=== PATIENT | male | born 1980 | race Caucasian/White ===

== ENCOUNTER 2025-01-03 15:26 | Inpatient (IN) | payer BC, SELFPAY ==
[2025-01-03] VITALS (44 sets, daily range): BP systolic 73–108; BP diastolic 49–86; BMI 20.7; BMI 20.6
--- NOTE | 2025-01-03 14:12 | ED.GENMED ---
History of Present Illness
General
Chief Complaint: Breathing Problem
Source: patient and spouse
Exam Limitations: none
Time Seen by Provider: 01/03/25 14:02
Nursing documentation reviewed up to this point in time: agreed with
History of Present Illness
History of Present Illness:
Patient presents to ED from home secondary to increased work of breathing, associated with productive cough and decreased appetite, along with body ache, chills, and fever over the past 4 days. Patient's child at home experienced similar symptoms
recently, but has recovered fully. Denies recent travel. Denies vomiting or diarrhea. Denies chest pain. Denies sore throat. Patient otherwise is healthy without any medical history. Patient does not take any medications daily.
Review of Systems
Review of Systems
Allergies reviewed?: Yes
All Other Systems: ROS reviewed and negative except as documented in HPI and ROS
Constitutional: Reports fever and chills
EENT: Reports no symptoms
Respiratory: Reports cough and trouble breathing
Cardiac: Reports no symptoms
ABD/GI: Reports no symptoms; Denies vomiting or diarrhea
Musculoskeletal: Reports muscle pain
Skin: Reports no symptoms
Neurological: Reports no symptoms; Denies headache or weakness
Phy Exam
Physical Exam
Physical Exam:
Physical Exam
General: moderate distress, acutely ill. afebrile. ill appearing
Head: nc/at. eomi
Neck: supple. no meningeal signs.
Heart: s1/s2 regular rate and rhythm, no murmur.
Lungs: moderate respiratory distress. rhonchi bilaterally
Abdomen: normal bowel sounds. not tender.
Neuro: alert and oriented x 3. no focal neurological deficits
Skin: no rash
Psychiatric: well kept. interactive and cooperative
Extremities: no edema. no calf tenderness.
Sepsis
Sepsis Screening
Sepsis Assessment: Severe Sepsis
Sepsis Screening: Lactate >/=4mmol/L and Hypotension
Sepsis Screen
Sepsis Screen: Severe Sepsis
Date: 01/03/25
Time: 23:56
Course
Orders/Labs/Results
Orders:
Orders
01/03/25 14:01
Electrocardiogram (*1) Urgent
Reason for Study: Chest Pain
Cardiac Monitoring- Treatment ONCE
EKG- Treatment ONCE
IV Insert/Care/Rem.- Treatment PRN
O2 Therapy [RESP] Urgent
Titrate/Wean O2 to maintain O2 sat greater than (%): 90
Special Instructions: Maintain sats >/=90%
Pulse Ox/spot Check [RESP] Urgent
Quantity: 1
Special Instructions: ON ROOM AIR
01/03/25 14:04
COVID-19 Antigen Urgent
Source: Nasal Swab
Complete Blood Count/With Diff Urgent
Comprehensive Metabolic Panel Urgent
Magnesium Urgent
Comment: ADDON
PTT Urgent
Comment: ADDON
Phosphorus Urgent
Comment: ADDON
Prothrombin Time Urgent
Troponin I Urgent
Influenza A+B Rapid Molecular Urgent
EVE Source: Nasal Swab
Specimen Description:
01/03/25 14:11
CR Chest Portable - 1 View Urgent
Comment:
Reason For Exam: cough/sob/hypoxia
Reason Study Needs to be Portable: Patient Unstable
01/03/25 14:24
Lactic Acid Q4H
Comment: CANCEL 2nd LACTIC ACID IF 1st LACTIC ACID IS LESS THAN 2
Blood Culture Q30M
EVE Source: Blood/Venous
Specimen Description:
Blood Culture Q30M
EVE Source: Blood/Venous
Specimen Description:
01/03/25 14:28
Legionella Urinary Antigen Urgent
EVE Source: Urine
Specimen Description:
Azithromycin 500 mg/250 ml [Zithromax Infusion] 500 mg in 250 ml IV NOW
CefTRIAXone [Rocephin] 1,000 mg IV NOW STA
01/03/25 14:39
0.9% Sodium Chloride 1000 ml [Nss] 1,000 ml IV BOLUS
Albuterol Nebs [Ventolin Nebules] 2.5 mg INH R NOW STA
Oseltamivir Phosphate [Tamiflu] 75 mg PO NOW STA
01/03/25 14:42
Ibuprofen [Motrin] 400 mg PO NOW STA
01/03/25 15:03
0.9% Sodium Chloride 1000 ml [Nss] 1,000 ml IV BOLUS
01/03/25 15:05
Admit/Transfer Patient As Directed
Co-Sign Provider:
Level of Care: Inpatient admission
Assign to:: ICU
Physician / Group: [email or web address]
Diagnosis: Viral Influenza A, sepsis , Bicytopenia , hypotension
Reason for Hospitalization: Viral Influenza A, sepsis , Bicytopenia , hypotension
Expected length of stay greater than two midnights?: Yes
ELOS- Estimated Length of Stay in days: 3
I certify the patient meets the requirements for IP care: Yes
01/03/25 15:09
Code Status As Directed
Resuscitation Status: Full Code
01/03/25 15:30
NORepinephrine 4 MG/250 ML [Levophed] 4 mg in 250 ml IV PER PROTOCOL
Initial dose in mcg/min, then titrate:: 5
Titrate to keep:: MAP > 65 mmHg
Titrate by mcg/min:: 1-2 mcg/min
Frequency of titrations (minutes):: 5
Maximum dose in ICU in mcg/min:: 30
Maximum dose in IMU in mcg/min:: 8
Maximum dose in IVU in mcg/min:: 4
Begin to taper infusion when:: Remained at goal for 4hrs
Taper by mcg/min:: 1-2 mcg/min
Frequency of taper (minutes) if patient maintains goal:: 30
Taper to off?: Yes
If infusion off & no longer maintaining goal:: Contact Provider
01/03/25 16:50
Lactated Ringers [Lr] 1,000 ml IV 150 mls/hr
01/03/25 16:50
Aeronautical Drafter Consult Routine
Consulting Provider: Floyd York
Was physician already notified: Yes
Reason for consult: Viral influenza, sepsis with hypotention, acuyte hypoxic RF
Urinalysis Reflex To Culture Urgent
Activity As Directed
Activity Level: With Assistance
Intake/ Output As Directed
Frequency: Per unit guidelines
Vital Signs As Directed
Frequency: Per unit guidelines
Weight As Directed
Frequency: Daily
Pulse Ox/spot Check [RESP] Routine
Quantity: 1
Special Instructions: pulse oximetry on admision then every shift if on oxygen
call if oxygen saturation < ___ %
DX Deep Vein Thrombosis Video Routine
01/03/25 18:13
Lactic Acid Q4H
Comment: CANCEL 2nd LACTIC ACID IF 1st LACTIC ACID IS LESS THAN 2
01/03/25 20:00
Heparin 5,000 units SC Q12
01/03/25 22:14
Lactic Acid Q4H
Comment: repeat q4 hours x 4 or until less than 2 mmol/L
01/04/25 00:50
Lactic Acid Q4H
Comment: repeat q4 hours x 4 or until less than 2 mmol/L
01/04/25 04:50
Lactic Acid Q4H
Comment: repeat q4 hours x 4 or until less than 2 mmol/L
01/04/25 Breakfast
Regular
At Your Request: Full Participation
Does patient need a safe tray?: No
Complete Blood Count/With Diff IN AM
Comprehensive Metabolic Panel IN AM
01/04/25 08:00
Azithromycin [Zithromax] 500 mg PO DAILY
Oseltamivir Phosphate [Tamiflu] 30 mg PO BID
Pantoprazole [Protonix] 20 mg PO DAILY
01/04/25 14:00
CefTRIAXone [Rocephin] 1,000 mg IV Q24H
Abnormal Lab Results
01/03/25 01/03/25
14:04 14:24
WBC 1.0 L* 10^3/uL
(4.8-10.8)
RBC 4.65 L 10^6/uL
(4.70-6.10)
Plt Count 104 L 10^3/uL
(130-400)
MPV 11.6 H fL
(7.4-10.4)
Absolute Neuts (auto) 0.7 L* 10^3/uL
(1.4-6.5)
Absolute Lymphs (auto) 0.2 L 10^3/uL
(1.2-3.4)
Immature Gran % 2.0 H %
(0-0.5)
PT 15.8 H Sec
(11.4-14.6)
APTT 47.0 H Sec
(23.4-35.0)
Chloride 95 L mmol/L
(98-107)
BUN 30 H mg/dl
(9-20)
Creatinine 2.3 H mg/dL
(0.7-1.3)
Glucose 126 H mg/dl
(70-99)
Lactic Acid 6.1 H* mmol/L
(0.7-2.0)
Calcium 8.1 L mg/dl
(8.4-10.2)
Phosphorus 4.8 H mg/dl
(2.5-4.5)
Total Protein 5.8 L g/dl
(6.3-8.2)
01/03/25 14:04
01/03/25 14:04
Vital Signs
Initial and Last Documented VS:
Initial Vital Signs
Pulse Resp BP Pulse Ox
117 20 79/52 82
01/03/25 13:55 01/03/25 13:55 01/03/25 13:55 01/03/25 13:55
Last Documented Vital Signs
Temp Pulse Resp BP Pulse Ox
97.7 F 87 21 84/66 95
01/03/25 20:00 01/03/25 23:00 01/03/25 23:00 01/03/25 23:00 01/03/25 23:49
MDM/Problems Addressed
MDM/Problems Addressed:
History and exam concerning for significant hypoxia with hypotension, likely secondary to influenza. However, chest x-ray is consistent with bilateral infiltrate, difficult to exclude potential superimposed bacterial infection. Given patient's
clinical presentation, patient will be started on IV fluid boluses, along with IV antibiotics, as well as Tamiflu. Patient's hypoxia improving on mid flow oxygen. Patient will be admitted to ICU for further evaluation and treatment.
Despite initial improvement, patient becoming hypotensive despite 2 L IV fluid bolus. As such, patient will be started on Levophed infusion.
Critical care statement: A total of 60 minutes of critical care time was provided for this patient. This includes management of unstable vital signs, evaluation of the patient at bedside, reviewing the patient's pertinent medical records, review of
old EKGs and review of pertinent medical records. This time with separate from time utilized to perform the aforementioned documented procedures
*EKG
Interpreted by ED Provider?: Yes
EKG Intrepretation Date: 01/03/25
Heart Rate: 108
Rate: tachycardiac
Rhythm: sinus
Interval: normal interval
QRS Pattern: left bundle branch block
*Critical Care Note
Total Time (30-74mins, 75-104mins- exclusive of procedures): 60 min
ED Attending Note
-
Portions of this chart may have been created with voice recognition software.� Occasional wrong word or��sound alike� substitutions may have occurred due to the inherent limitations of voice recognition software.
Discharge Plan
Departure
Patient Disposition: Admit
Date of Disposition: 01/03/25
Time of Disposition: 14:42
Admit to: ICU
Presentation/result/management discussed w/ accepting MD/DO: Hospitalist
Discharge Problem:
Influenza A, Hypoxia, Sepsis, Acute renal failure
Interventions
Interventions:
*Risk Screen - Suicide Last Done: 01/03/25 17:14
*General Assessment Last Done: 01/03/25 14:12
*Neglect/Abuse Screening Last Done: 01/03/25 13:55
ED- Fall Risk Assessment Last Done: 01/03/25 14:10
*ED COVID-19 Vaccine History Last Done: 01/03/25 14:01
*Nursing Disposition Last Done: 01/03/25 17:06
ED- Cardiac Assessment Last Done: 01/03/25 14:10
ED- Pulmonary Assessment Last Done: 01/03/25 14:13
Discharge Date and Time
Discharge Date/Time: 01/03/25 17:07
[2025-01-03] MEDS: NSS 1000 IV ×2 (14:15→14:55)
[2025-01-03 14:25] LABS: INR 1.23; PT 15.8 Sec (11.4-14.6)
[2025-01-03 14:27] LABS: Hematocrit 41.5 % (39.0-52.0); Hemoglobin 14.2 g/dL (13.0-18.0); Mean Corp Hgb Conc. 34.2 g/dL (33.0-37.0); Mean Corpuscular Hgb 30.5 pg (27.0-31.0); Mean Corpuscular Volume 89.2 fL (80.0-94.0); Mean Platelet Volume 11.6 fL (7.4-10.4); Platelet Count 104 10^3/uL (130-400); Red Blood Cell Count 4.65 10^6/uL (4.70-6.10); Red Cell Dist. Width 12.1 % (11.5-14.5)
[2025-01-03 14:30] LABS: Albumin 4.1 g/dl (3.5-5.0); Alkaline Phosphatase 61 U/L (38-126); Blood Urea Nitrogen 30 mg/dl (9-20); Calcium 8.1 mg/dl (8.4-10.2); Carbon Dioxide 25 mmol/L (22-30); Chloride 95 mmol/L (98-107); Estimated Creatinine Clearance 35 ml/min; Glucose 126 mg/dl (70-99); Potassium 4.1 mmol/L (3.5-5.1); Sodium 138 mmol/L (135-145); Total Bilirubin 1.2 mg/dl (0.2-1.3); Total Protein 5.8 g/dl (6.3-8.2); eGFR 35.25
[2025-01-03] MEDS: ROCEPHIN 1000 MG IV (14:32)
[2025-01-03] MEDS: ZITHROMAX INFUSION 250 IV (14:37)
[2025-01-03 14:41] LABS: ALT (SGPT) 42 U/L (0-50); AST (SGOT) 50 U/L (17-59)
[2025-01-03 14:42] LABS: Troponin I < 0.012 ng/ml
[2025-01-03 14:49] LABS: COVID-19 Antigen Negative (Negative)
[2025-01-03 14:51] LABS: Lactic Acid 6.1 mmol/L (0.7-2.0)
[2025-01-03] MEDS: TAMIFLU 75 MG PO (14:51)
[2025-01-03] MEDS: MOTRIN 400 MG PO (14:51)
[2025-01-03] MEDS: VENTOLIN NEBULES 2.5 MG INH (14:55)
--- NOTE | 2025-01-03 14:55 | HPS.HSE ---
Family Physician
-
Family Physician:
Chief Complaint
-
acute Resp distress
History of Present Illness
HPI
44M Healthy with no significant PMHX from home seen at ER:
- evaluation for labored breathing
- associated with productive cough
- decreased appetite, along with body ache, chills, and fever over the past 4 days.
- HX contact exposure: Patient's child at home experienced similar symptoms recently, but has recovered fully.
- Patient does not take any medications daily.
ROS
- Denies recent travel.
- Denies vomiting or diarrhea.
- Denies chest pain.
- Denies sore throat.
Medical History
Past Medical History
Past Medical History: Reports None
Past Surgical History: Reports None
Social History
Tobacco: Non-smoker
Alcohol: None
Drug: None
Personal:
Living: With Family
Family History
Family History: Not pertinent
Allergies / Home Medications
Allergies reflects when Allergies were last updated in [facility].
Home Medications with original date entered in [facility]
Allergy/Medication List:
Allergies
Allergy/AdvReac Type Severity Reaction Status Date / Time
No Known Allergies Allergy Unverified 01/03/25 14:01
Home Medications
escitalopram oxalate 20 mg tablet (Lexapro) 20 mg PO HS 01/03/25
ibuprofen 200 mg tablet 200 mg PO Q6HPRN PRN mild pain/headache/fever 01/03/25
lansoprazole 15 mg capsule,delayed release 15 mg PO DAILY 01/03/25
Review of Systems
-
Constitutional: Reports No Symptoms
EENT: Reports No Symptoms
Respiratory: Reports See HPI
Cardiac: Reports No Symptoms
Abdomen/GI: Reports No Symptoms
: Reports No Symptoms
Musculoskeletal: Reports No Symptoms
Skin: Reports No Symptoms
Neurological: Reports No Symptoms
Endocrine: Reports No Symptoms
Hematologic/Lymphatic: Reports No Symptoms
Psych: Reports No Symptoms
Physical Exam
Vital Signs
Vital Signs
Temp Pulse Resp BP Pulse Ox
96.7 F L 112 17 75/49 88
01/03/25 14:16 01/03/25 14:03 01/03/25 14:03 01/03/25 14:03 01/03/25 14:03
Physical Exam
General: Conversant, Respiratory Distress, Appears in Distress and Other (toxic)
HEENT: Anicteric; No Moist mucous membranes
Respiratory: Wheezes
Cardiac: S1/S2 and Tachycardia
GI: Soft, Non Tender, Non Distended and Normal Bowel Sounds
Musculoskeletal: No Edema
Neuro: Alert and AO x 3
Psych: Anxious
Laboratory Results
-
01/03/25 14:04
01/03/25 14:04
Laboratory Results
PT 15.8 Sec (11.4-14.6) H 01/03/25 14:04
INR 1.23 01/03/25 14:04
Lactic Acid 6.1 mmol/L (0.7-2.0) H* 01/03/25 14:24
Total Bilirubin 1.2 mg/dl (0.2-1.3) 01/03/25 14:04
AST 50 U/L (17-59) 01/03/25 14:04
ALT 42 U/L (0-50) 01/03/25 14:04
Alkaline Phosphatase 61 U/L (38-126) 01/03/25 14:04
Troponin I < 0.012 ng/ml 01/03/25 14:04
Data Reviewed
-
Diagnostic Radiology: Other (pending CXR )
Lab Data: Labs Reviewed by me
Impression/Plan
-
Laboratory Tests
01/03/25
14:04
WBC 1.0 L*
Hgb 14.2
Plt Count 104 L
Data
Pending LA
BCx sent
CXR : pending to be done
NO PRIOR hospitalist admission
ASSESSMENT & PLAN
Pending Rx reconciliation
Viral Flua A complicated with sespsis
Associated Hypothermia, Hypotensive, Tachycardia ; Septic IV NS bolus
Acute hypoxic RF requires MF NC O2 15 L
Bicytopenia ( WCC 1.0, Plt 104)
- Pending CXR
- Pending LA
- BCx sent
- c/w Septic IVF : will switch to LR IVF
- Agree with Oseltamivir
- Nebs
- agree with empiric IV CFTZ and PO Azithromycin
- c/w MF NC O2
- ICU consult
ERIC secondary to NSAIDS use and sepsis
- LR IVF
- avoid NSAIDs use
Depression: stable
- Hold Lexapro due to Drug interaction with Lexapro ?
DVT Px: LMWH
Full code
ICU
Total Critical Care Time__50___ minutes. I was immediately available to the patient and staff. I personally examined, reviewed labs, diagnostic images/reports, interpretations, treatment plans, discussed patient care with other providers and
family or caregivers (if patient is unable to make decisions), entered orders as appropriate and documented the medical record.
--- NOTE | 2025-01-03 15:31 | CON.INTV ---
Consultation
Consultation Request
Date/Time Consultation Requested: 01/03/2025-3:30 PM
Date/Time Consultation Performed: 01/03/2025-3:30 PM
Requesting Provider: Hospitalist
Performing Provider: Dr. York
Reason for Consultation: Septic shock
Medical History
-
Chief Complaint: Sepsis
History of Present Illness:
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
Past Medical History
Past Medical History: None (Reportedly no hypertension, hyperlipidemia, CAD, pulmonary, renal, gastrointestinal or neurologic disease)
Social History
Tobacco: Non-smoker
Alcohol: None
Drug: None
Living: With Family
Occupational Exposures: No known asbestos exposure
Environmental Exposures: No known tuberculosis exposure
Family History
Family History: Reviewed & Not Pertinent
Allergies / Home Medications
Allergies
Allergy/AdvReac Type Severity Reaction Status Date / Time
No Known Allergies Allergy Unverified 01/03/25 14:01
Home Medications
�Medication �Instructions �Recorded �Confirmed �Last Taken �Type
dextroamphetamine-amphetamine 30 30 mg PO BID 01/03/25 01/03/25 Unknown History
mg tablet
escitalopram oxalate 20 mg tablet 20 mg PO HS 01/03/25 01/03/25 Unknown History
(Lexapro)
ibuprofen 200 mg tablet 200 mg PO Q6HPRN PRN mild 01/03/25 01/03/25 Unknown History
pain/headache/fever
lansoprazole 15 mg capsule,delayed 15 mg PO DAILY 01/03/25 01/03/25 Unknown History
release
Review of Systems
-
Unable to Obtain full review of systems at this time due to: Other (Per HPI)
Vitals / Labs / Diagnostic Testing
Vital Signs
Temp Pulse Resp BP Pulse Ox
96.7 F L 101 25 75/61 100
01/03/25 14:16 01/03/25 15:00 01/03/25 15:02 01/03/25 15:00 01/03/25 15:00
Lab Data
01/03/25 14:04
01/03/25 14:04
Laboratory Results
01/03/25
14:04
PT 15.8 H
INR 1.23
Microbiology
01/03/25 14:04 Nasal Swab Influenza Types A & B (STEVE) - Final
Influenza A Positive, NAAT
Diagnostic Testing:
Physical Exam
-
Exam:
Well-nourished and well-developed in some respiratory distress
HEENT-atraumatic, normocephalic,
Neck-supple, no JVD, no bruit
Heart-regular rate and rhythm-no murmurs, rubs or gallops
Chest with diminished breath sounds, crackles at both bases, expiratory rhonchi and few wheezes
Abdomen-soft, nontender, nondistended, no hepatosplenomegaly
Extremities-no cyanosis, clubbing, edema and good peripheral pulses
Integument-intact, no rashes, lesions or ecchymosis
Neurology-alert and oriented, nonfocal motor and sensory exam
Assessment
-
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
Sepsis with shock unresponsive to fluids
Cipomseye-uuyjpclgy-ptdimpfk
Influenza A
Leukopenia
Thrombocytopenia
Lactic acidosis
ERIC
Hypocalcemia
Conditions present prior to admission:
None
Plan
Admit patient to medical intensive care unit for persistent hypotension despite fluid resuscitation requiring pressors
Supplement oxygen as needed
High flow oxygen if needed
BiPAP if necessary
Intubate and mechanically ventilate if necessary
At risk for significant deterioration if and when WBCs recover
Aspiration precautions
Nebulizers if needed
Obtain cultures
Influenza A+
Tamiflu
Empiric antibiotics-ceftriaxone and azithromycin
Consider Infectious disease consultation
Monitor leukocytosis
Neutropenic precautions
Fluid resuscitation with 30 mL/kg crystalloid-preferably lactated ringer-(less ERIC) with subsequent boluses as needed
Monitor lactate
Follow CVP if possible
Attempt noninvasive bedside tissue perfusion evaluation to see if fluid bolus responsive
Measure pulse pressure and stroke volume variation if patient on ventilator, passively breathing without arrhythmia and with temporary large tidal volume ventilation and if > 13% then likely fluid bolus responsive
If patient active then consider measuring bedside leg lift for 3 minutes and if cardiac output increases or if there is a rise of 2-4 on end-tidal CO2 then fluid bolus
If bedside ultrasound available then measure IVC diameter variation to evaluate for fluid bolus responsiveness
Begin pressors as needed for MAP goal of 65-Norepinephrine first, then Vasopressin and consider Angiotensin II if continues to be hypotensive
Consider methylene blue if available-specific inhibitor of induced nitric oxide synthase iNOS and its downstream enzyme soluble guanylate cyclase-noninferiority study shown to reduce time to vasopressor discontinuation, decreased ICU length of stay,
hospital stay but no change in mortality-published Critical Care 01/29/2023
If persistently hypotensive then consider checking random cortisol-hydrocortisone if random less than 3, if 3-15 then consider ACTH stimulation test
If persistently hyperthermic then correcting hyperthermia can decrease pressor requirements, increased chances of reversal of shock and decrease mortality
Monitor renal function
Nephrology evaluation if renal function does not improve
Consider bicarb
Monitor leukopenia and thrombocytopenia
Consider hematology evaluation
DVT prophylaxis unevnffhgwz-brxsdojvym-eu edema, negative Homans, and significant thrombocytopenia
Early nutrition if possible
Early mobilization/bedside range of motion
Reviewed with critical care charge nurse, critical care nursing, ED nursing, and hospital physician
Critical care statement: A total of 65 minutes of critical care time was provided for this patient today. This includes management of unstable vital signs, evaluation of the patient at bedside, reviewing the patient's pertinent medical records
including radiographs, pressor management, sepsis management, microbiology, laboratory evaluations, and discussion with primary team, consultants, pharmacy, nutrition, physical therapy, case management, charge nurse, critical care nursing, and
respiratory therapy.
Diagnostic data:
Chest x-ray 01/03/2025-bibasilar pneumonia left greater than right
Data Reviewed
-
EKG: Report reviewed by me
Radiology: Image personally visualized and interpreted and Report reviewed by me
Medical Tests (Nuc Med, Echo etc): Report reviewed by me
Labs: Labs reviewed by me
Old Records: Reviewed
Critical Care Time (in minutes): 65
[2025-01-03 15:33] LABS: % Lymphocytes 20.6 % (20.5-51.1); % Monocytes 6.9 % (1.7-9.3); % Neutrophils 70.5 % (42.2-75.2); Absolute Lymphocytes 0.2 10^3/uL (1.2-3.4); Absolute Monocytes 0.1 10^3/uL (0.1-0.6); Absolute Neutrophils 0.7 10^3/uL (1.4-6.5); Nucleated Red Blood Cells % 0 % (-)
[2025-01-03] MEDS: LEVOPHED 250 IV ×2 (15:50→22:15)
[2025-01-03] MEDS: LR 1000 IV (17:18)
[2025-01-03 17:26] LABS: Magnesium 1.6 mg/dl (1.6-2.3); Phosphorus 4.8 mg/dl (2.5-4.5)
--- NOTE | 2025-01-03 17:51 | PTCARENOTE ---
Pt admitted from ED for + Flu A, sepsis, and low WBC. Assessment as noted, Midflow NC 12L with SpO2 88-92%. Fine crackles throughout. Levophed 8mcg/min. LR @ 140cc/hr. SR with LBBB. Awaiting void for urine studies. Family at bedside. Plan of care
discussed.
[2025-01-03 18:37] LABS: Lactic Acid 4.1 mmol/L (0.7-2.0)
[2025-01-03] MEDS: HEPARIN 5000 UNITS SC (19:45)
[2025-01-03] MEDS: OFIRMEV 100 IV (20:18)
[2025-01-03] MEDS: LR 500 IV (20:51)
--- NOTE | 2025-01-03 21:01 | PTCARENOTE ---
Received pt resting in bed, AAOx3, complaining of 8/10 generalized body aches/pains. TIE PULLER notified. Ofirmev ordered and given. Will monitor for effect. SR w/ BBB on tele, HR 80-90s. Received on levophed at 10mcg to maintain SBP >90. Extra 500ml LR
bolus ordered and infusing to support BP. Has dry mucous membranes. Placed on high flow by dayshift RT. On 45L/100%. Spo2 93-94%. Lungs diminished throughout with minimal fine crackles bibasilar. + bowel sounds. Poor appetite. Urinal at bedside. R
AC and R FA IVs with LR @ 150ml/hr and levo infusing. Call marroquin in reach
[2025-01-03 22:42] LABS: Blood Urea Nitrogen 35 mg/dl (9-20); Calcium 6.7 mg/dl (8.4-10.2); Carbon Dioxide 19 mmol/L (22-30); Chloride 102 mmol/L (98-107); Estimated Creatinine Clearance 38 ml/min; Glucose 127 mg/dl (70-99); Potassium 4.2 mmol/L (3.5-5.1); Sodium 133 mmol/L (135-145); eGFR 39.32
--- NOTE | 2025-01-03 23:09 | PTCARENOTE ---
Pt. reassessed. Has not voided. Bladder scanned for 450ml. Assisted pt to sit at side of bed and unable to void then assisted to stand briefly and still unable to void. Pt. maintained sats >90% throughout. ASSOCIATE DIRECTOR OF DEVELOPMENT notified. Will give pt. some time to
try to void and if not, then catheterize.
ASSOCIATE DIRECTOR OF DEVELOPMENT switched levophed orders to maintain MAP>65 instead of SBP>90. Levo currently at 7mcg. Remains on hi flow 45L/100%.
requesting transfer to [facility]. MARQUISE Michael aware. Face sheet faxed to [facility] transfer center.
--- NOTE | 2025-01-03 23:46 | W.PN.UPDATE ---
Update Note
Progress Note Update
Per �s request: Opened transfer process to [facility]. �Currently there are no beds available at [facility]. �[facility] is a possibility on Sunday, after confirmed by their business office.�
[2025-01-04] VITALS (58 sets, daily range): BP systolic 81–145; BP diastolic 61–83
[2025-01-04] MEDS: DILAUDID 0.5 MG IV (00:03)
[2025-01-04] MEDS: LR 1000 IV ×4 (00:03→22:10)
[2025-01-04] MEDS: CALCIUM GLUCONATE 130 MG IV (00:11)
[2025-01-04 01:31] LABS: Urine Albumin 2+ (Neg - Trace); Urine Bilirubin Negative (Negative); Urine Character Clear (Clear); Urine Color Amber; Urine Glucose Negative (Negative); Urine Ketone Negative (Negative); Urine Leukocyte 1+ (Negative); Urine Nitrite Negative (Negative); Urine Occult Blood Negative (Negative); Urine Urobilinogen Negative (Neg - 1+)
--- NOTE | 2025-01-04 01:36 | PTCARENOTE ---
Pt. voided 425ml neena urine. UA and legionella sent as ordered.
[2025-01-04 01:56] LABS: Urine Squamous Cell >30 /LPF (Few)
[2025-01-04 01:57] LABS: Urine Amorphous Seen; Urine Granular Cast >15 /LPF (0); Urine White Cell Cast >15 /LPF
[2025-01-04 02:00] LABS: Urine Bacteria Many (Negative); Urine White Cell >100 /HPF (0-5)
[2025-01-04] MEDS: OFIRMEV 100 IV ×4 (02:15→20:08)
[2025-01-04 02:56] LABS: Hematocrit 33.8 % (39.0-52.0); Hemoglobin 11.9 g/dL (13.0-18.0); Mean Corp Hgb Conc. 35.2 g/dL (33.0-37.0); Mean Corpuscular Hgb 30.9 pg (27.0-31.0); Mean Corpuscular Volume 87.8 fL (80.0-94.0); Red Blood Cell Count 3.85 10^6/uL (4.70-6.10); Red Cell Dist. Width 12.4 % (11.5-14.5); White Blood Cell Count 0.6 10^3/uL (4.8-10.8)
[2025-01-04 03:09] LABS: Lactic Acid 3.1 mmol/L (0.7-2.0)
[2025-01-04 03:13] LABS: ALT (SGPT) 23 U/L (0-50); AST (SGOT) 37 U/L (17-59); Albumin 2.8 g/dl (3.5-5.0); Alkaline Phosphatase 52 U/L (38-126); Blood Urea Nitrogen 38 mg/dl (9-20); Calcium 7.8 mg/dl (8.4-10.2); Carbon Dioxide 20 mmol/L (22-30); Chloride 102 mmol/L (98-107); Estimated Creatinine Clearance 38 ml/min; Glucose 107 mg/dl (70-99); Magnesium 1.4 mg/dl (1.6-2.3); Potassium 4.4 mmol/L (3.5-5.1); Sodium 134 mmol/L (135-145); Total Bilirubin 0.7 mg/dl (0.2-1.3); Total Protein 4.5 g/dl (6.3-8.2); eGFR 39.32
[2025-01-04] MEDS: MAGNESIUM SULFATE 50 IV (04:03)
[2025-01-04] MEDS: ATIVAN 0.5 MG IV (04:03)
[2025-01-04] MEDS: NSS (PRESERVATIVE FREE) 0.25 ML IV (04:03)
--- NOTE | 2025-01-04 04:20 | PTCARENOTE ---
Pt. reports anxiety, feeling antsy/restless. He feels this is affecting his breathing. PATIENT CARE REPRESENTATIVE notified. IV ativan ordered and administered. Assisted pt to reposition to attempt to be more comfortable. Receiving Ofirmev Q6h ATC. Remains on hi flow
45L/100%, spo2 >92%. stayed the night at bedside.
[2025-01-04 06:31] LABS: Lactic Acid 2.8 mmol/L (0.7-2.0)
[2025-01-04 06:56] LABS: Platelet Count 68 10^3/uL (130-400)
[2025-01-04 06:57] LABS: Mean Platelet Volume 11.5 fL (7.4-10.4)
--- NOTE | 2025-01-04 07:32 | W.PN.INTV ---
Today's Communication / Plan
Recommendations
Check cultures
Supplemental oxygen as needed
Intravenous fluids
Trend lactate
Intensify antibiotics
Infectious disease consultation
Hematology evaluation
Pressors as needed
Monitor renal function
Call placed to transfer center-spoke to aerobics instructor to expedite transfer-he is in queue based on acuity-reviewed with family members
Assessment
-
44-year-old male without significant past medical history presented with shortness of breath, cough, found to have influenza as well as bilateral pneumonia-aerobics instructor consulted for respiratory failure, pneumonia, influenza, and critical care
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
Sepsis with shock unresponsive to fluids requiring pressors
Ylceqbmef-iegdzkwot-pzvwnqnx-strep pneumonia suspected
Influenza A
Bacteremia-suspect streptococcal
Leukopenia
Thrombocytopenia
Lactic acidosis
ERIC
Hypocalcemia
Conditions present prior to admission:
None
Plan
Remains critically ill on high flow oxygen and intermittent norepinephrine
Supplemental oxygen as needed
High flow oxygen continues-attempt to wean
NIV if necessary
(Intubate and mechanically ventilate if necessary-at that point likely would require
We would employ lung protective strategy to avoid volutrauma and barotrauma
Goal VT 6 mL/kg
Best PEEP-to ventilator between LIP (lower inflection point) and UIP
Keep plateau pressure less than 30
Avoid high driving pressure-goal <15-20 (plateau pressure - PEEP)
Neuromuscular blockade with for the first 48 hours if P/F ratio less than 150 - note recent data ([facility] 04/16/19) did not show 90 day mortality benefit with this tactic
Prone position 16 hours daily if P/F ratio less than 150
Consider recruitment maneuvers - PEEP 30-35 for 45 seconds
Allow for permissive hypercapnia if necessary
Conservative fluid management protocol recommended
Severe ARDS there may be a role for pulmonary vasodilators such as nitric oxide or prostacyclin, pulse steroids, or even ECMO)
Nebulizers if needed
Mucolytic's
Aspiration precautions
Mucus clearing devices
Prone positioning if beneficial
Follow chest x-ray
Consider CT chest-avoid dye in light of ERIC
At risk for significant deterioration if and when WBCs recover-reviewed with critical care team as well as /[id number]-ry-iro
Cultures reviewed
Influenza A+
Tamiflu continues
Sputum culture-pending
Influenza A+
Blood culture 2/8-nvjvyqnn-Pold-positive cocci in pairs and chains
Urine Legionella-negative
Urine strep pneumonia antigen-positive
Empiric mmxfbklbgah-iqhymdrlcjq-pwmbfpejd dose and azithromycin
1 dose of vancomycin also provided
Infectious disease consultation will be obtained-spoke in person to Dr. Lucas
Monitor leukopenia and thrombocytopenia
Neutropenic precautions
Hematology evaluation-Dr. York placed consult to Dr. Cash
Decrease IV fluids
Trend lactate
Bedside tissue perfusion evaluations
Norepinephrine continues-then Vasopressin and consider Angiotensin II if continues to be hypotensive
Attempt noninvasive bedside tissue perfusion evaluation to see if fluid bolus responsive
Measure pulse pressure and stroke volume variation if patient on ventilator, passively breathing without arrhythmia and with temporary large tidal volume ventilation and if > 13% then likely fluid bolus responsive
If patient active then consider measuring bedside leg lift for 3 minutes and if cardiac output increases or if there is a rise of 2-4 on end-tidal CO2 then fluid bolus
If bedside ultrasound available then measure IVC diameter variation to evaluate for fluid bolus responsiveness
Consider methylene blue if available-specific inhibitor of induced nitric oxide synthase iNOS and its downstream enzyme soluble guanylate cyclase-noninferiority study shown to reduce time to vasopressor discontinuation, decreased ICU length of stay,
hospital stay but no change in mortality-published Critical Care 01/29/2023
If persistently hypotensive then consider checking random cortisol-hydrocortisone if random less than 3, if 3-15 then consider ACTH stimulation test
If persistently hyperthermic then correcting hyperthermia can decrease pressor requirements, increased chances of reversal of shock and decrease mortality
Monitor renal function
Nephrology evaluation if renal function does not improve
Consider bicarb
DVT prophylaxis ehltqzccryp-tusdietzaj-wg edema, negative Homans, and significant thrombocytopenia
Early nutrition if possible
Bedside range of motion/early mobilization
Critical care statement: A total of 55 minutes of critical care time was provided for this patient today. This includes management of unstable vital signs, evaluation of the patient at bedside, reviewing the patient's pertinent medical records
including radiographs, pressor management, respiratory failure management, sepsis management, microbiology, laboratory evaluations, and discussion with primary team, consultants, pharmacy, nutrition, physical therapy, case management, charge nurse,
critical care nursing, and respiratory therapy and coordination of care.
Diagnostic data:
Chest x-ray 01/03/2025-bibasilar pneumonia left greater than right
Subjective Dataa
Subjective Data
Date of Service:
Date of Service: January 04, 2025
Chief Complaint: Flaking Roll Operator Follow Up, Pulmonary Follow Up and Pneumonia Follow Up
Subjective:
Somewhat lethargic, some chest congestion, minimal cough, shortness of breath with minimal exertion, now on high flow, no chest pain, abdominal pain, nausea, leg swelling
Review of Systems
General: Other (Per HPI)
Objective Data
Data Reviewed
Vital Signs / I&O / Oxygen:
Vital Signs
Temp Pulse Resp BP Pulse Ox
97.7 F 94 20 108/70 96
01/04/25 07:00 01/04/25 05:45 01/04/25 05:45 01/04/25 05:45 01/04/25 05:45
Intake and Output
01/03/25 01/04/25 01/05/25
06:59 06:59 06:59
Intake Total 2962.8 / 2962.8
Output Total 425 / 425
Balance 2537.8 / 2537.8
SaO2 96
Nasal Cannula flow liters per 45
minute
Physical Exam
General: Respiratory Distress (n) and Comfortable
HEENT: Normocephalic, Anicteric and Moist Mucous Membranes
Cardiovascular: Regular Rhythm and Murmur (n)
Respiratory: Crackles (Bilateral basilar), Rhonchi (Few expiratory ) and Accessory Resp Muscle Use (n)
GI: Soft, Non Distended and Non Tender
Neurology: Awake, Alert and No Motor Deficits
Skin: Warm, Good Color, Cyanosis (n), Jaundice (n) and Rash (n)
Labs/Micro/Reports
Lab Data
01/04/25 02:19
01/04/25 02:19
Laboratory Results
01/03/25
14:04
PT 15.8 H
INR 1.23
APTT 47.0 H
Microbiology
01/03/25 14:04 Nasal Swab Influenza Types A & B (STEVE) - Final
Influenza A Positive, NAAT
[2025-01-04] MEDS: ZITHROMAX 500 MG PO (08:01)
[2025-01-04] MEDS: PROTONIX 20 MG PO (08:01)
[2025-01-04] MEDS: HEPARIN 5000 UNITS SC (08:01)
[2025-01-04] MEDS: TAMIFLU 30 MG PO ×2 (08:01→19:03)
--- NOTE | 2025-01-04 09:08 | W.PN.HOSP.TC ---
Today's Communication/Plan
-
Transfer to [facility] when bed available
Assessment / Plan
Assessment / Plan
#Acute hypoxic respiratory failure
#Sepsis
#Severe influenza A infection
Currently requiring 35 L high flow, down from 45
Appreciate candy forming machine operator input, continue Tamiflu, supportive care
Accepted by [facility] for transfer but he is a low priority and waiting for bed
#Strep pneumo pneumonia
#Strep pneumo bacteremia
Appreciate ID input, Rocephin increased to 2 g every 12 hours due to neutropenia
Continue azithromycin
Trend fever and white count, trend lactate
#Profound neutropenia due to sepsis
Neutropenic precautions
#Septic shock
Off Levophed, continue IV fluids
#Acute kidney injury
Due to sepsis
Avoid nephrotoxic drugs/NSAIDs
#Anxiety
Ativan as needed
#GERD
Continue PPI
#Anxiety/depression
Continue SSRI
#ADHD
Hold Adderall
DVT prophylaxis�subcu Lovenox
Full code
Total time spent to see the patient on the floor, examine the patient, review data and lab results, discuss treatment plan with patient, nursing staff around 50 minutes.
Physical Exam
General: Appears acutely ill
HEENT: Normocephalic, Atraumatic, EOMI, MMM
Respiratory: Labored breathing noted, coarse with occasional rhonchi
Cardiac: Normal S1/S2, Regular Rate and Rhythm
GI: Soft, Nontender, Nondistended, Normal Bowel Sounds
Extremities: No Clubbing, Cyanosis, or Edema
Neuro: Lethargic appearing
Anticipated Discharge: > 48 hours
Subjective/Interval History
-
Date of Service: January 04, 2025
Patient reports feeling severe fatigue. He also has labored breathing and coughing. No fever, no vomiting.
Objective Data
-
Labs:
Laboratory Results
01/03/25 01/04/25
22:14 02:19
WBC 0.6 L*
Hgb 11.9 L
Hct 33.8 L
Plt Count 68 L D
Sodium 133 L 134 L
Potassium 4.2 4.4
Chloride 102 102
Carbon Dioxide 19 L 20 L
BUN 35 H 38 H
Creatinine 2.1 H 2.1 H
Glucose 127 H 107 H
Calcium 6.7 L* 7.8 L
Total Bilirubin 0.7
AST 37
ALT 23
Alkaline Phosphatase 52
Vital Signs:
Vital Signs
Temp Pulse Resp BP Pulse Ox
97.7 F 94 20 108/70 94
01/04/25 07:00 01/04/25 05:45 01/04/25 05:45 01/04/25 05:45 01/04/25 08:23
I&O
01/03/25 01/04/25 01/05/25
06:59 06:59 06:59
Intake Total 2962.8 / 2962.8
Output Total 425 / 425
Balance 2537.8 / 2537.8
[2025-01-04] MEDS: VANCOCIN 530 MG IV (09:21)
--- NOTE | 2025-01-04 09:24 | PHA.VAN.IN ---
Assessment
- Assessment
Renal Function: Unknown baseline (Scr 2.1)
Concomitant Antimicrobials: Azithromycin, Ceftriaxone, Oseltamivir
AUC Dosing Plan
- Dosing Variables
Dosing Weight (kg): 59.6
Dosing CrCl (ml/min): 38
Vd coefficient (L/kg): 0.7
- Empiric Dosing
Initial / Loading Dose: Vanco Loading 1500mg Given on 01/04/25 at 0921
Maintenance Regimen: Vanco Maintenance 750mg Q24H Starting 01/05/25 at 0600
Estimated AUC (mcg*h/mL): 509
Estimated Peak (mcg*h/mL): 31.1
Estimated Trough (mcg/ml): 13.6
Estimated Half Life (H): 19.28
- Monitoring
No levels ordered at this time: Consider in the next few days
Pharmacokinetics Vancomycin I
- -
Patient Age: 44
Patient Sex: Male
Vancomycin Day #: 1
Indication: Bacteremia
Requesting Provider: Shayy York
Pertinent Antimicrobial Allergies:
No Known Drug Allergies
Height / Weight:
Height 5 ft 7 in
Actual Weight 59.6 kg
Pertinent Past Medical History: Acute Renal Failure, Sepsis
- Vital Signs / Lab Results
Temp Pulse Resp BP Pulse Ox
97.7 F 94 20 108/70 94
01/04/25 07:00 01/04/25 05:45 01/04/25 05:45 01/04/25 05:45 01/04/25 08:23
Lab Results - Hematology
01/03/25 01/04/25
14:04 02:19
WBC 1.0 L* 0.6 L*
Band Neutrophils Cancelled
Lab Results - Chemistry
01/03/25 01/03/25 01/04/25
14:04 22:14 02:19
BUN 30 H 35 H 38 H
Creatinine 2.3 H 2.1 H 2.1 H
Estimated Creat Clear 35 38 38
Albumin 4.1 2.8 L
01/03/25 01/03/25 01/03/25
14:24 16:50 18:13
Lactic Acid 6.1 H* Cancelled 4.1 H*
01/03/25 01/04/25 01/04/25
22:14 02:19 06:11
Lactic Acid 3.0 H 3.1 H 2.8 H
Lab Results - Urine
01/04/25
01:21
Urine Nitrite (Reflex) Negative
Leukocyte Esterase Rfl 1+ A
Urine WBC (Reflex) >100 A
Ur Squamous Epith Cells >30
Urine Bacteria (Reflex) Many A
Microbiology Results
01/04/25 01:21 Legionella Urinary Antigen - Final
Urine Negative for Legionella pneumophila Serogroup 1 antigen.
A negative result does not rule out the possiblity of
Legionella infection due to other serogroups or species of
Legionella. Clinical correlation is recommended.
Streptococcus pneumoniae Antigen (M - Final
Positive for Strep pneumo Ag
01/03/25 14:24 Blood Culture - Preliminary
Blood/Venous Positive culture in progress
Gram Stain - Preliminary
01/03/25 14:24 Blood Culture - Preliminary
Blood/Venous Positive culture in progress
Gram Stain - Preliminary
01/03/25 14:04 Influenza Types A & B (STEVE) - Final
Nasal Swab Influenza A Positive, NAAT
--- NOTE | 2025-01-04 09:37 | CON.ID ---
Consultation
-
Date/Time Consultation Requested: 01/04/2025 0817
Date/Time Consultation Performed: 01/04/2025 0835
Requesting Provider: Dr. York
Performing Provider: Dr. Lucas
Reason for Consultation: Clinical sepsis
Chief Complaint / Past History
History of Present Illness
Rafael Ruffin is a 44-year-old man being evaluated at the request of Dr. York in regards to clinical sepsis. History is obtained from chart review, along with patient interview. Additional history was obtained from the patient's and
father who were at the bedside.
The patient is without significant past medical history and reports he was in his usual state of health until earlier this week. At that time, his daughter came down with a flulike illness with associated fevers and malaise. The following day
(approximately 5 days ago) the patient also felt ill, and developed fever to 102 degrees along with generalized aches and congestion. The next day he felt slightly better, but 3 days ago felt 'terrible' and stayed in bed most of the day. Two days
ago he developed increasing shortness of breath, with increased work of breathing. He had a home pulse ox luana which showed a pulse ox in the 80s and he came to the emergency room for further evaluation. Here, he was found to have a pulse ox in
the high 70s. Flu testing was found to be positive and he was started on oseltamavir. He was admitted to the intensive care unit. Chest imaging revealed pneumonia, and he was started on empiric ceftriaxone and Azithromycin. Blood cultures
obtained at the time of admission are now positive for positive cocci, and Infectious Diseases is asked to comment upon further antimicrobial management. At the present time he feels exceedingly tired and fatigued. He is currently on high flow O2.
He reports some cough with clear sputum. No hemoptysis or blood-tinged sputum is noted. He denies chest pain. He denies abdominal pain.
Past History
Past Medical History: None
Past Surgical History: None
Allergy History:
No Known Allergies Allergy (Unverified 01/03/25 14:01)
Medications Reviewed: Yes
Current Antibiotics:
Ceftriaxone
Azithromycin
Social History
Tobacco: Non-Smoker
Alcohol: None
Drug: None
Personal:
Living: With Family
Employment: Employed
Family History
Family History: Not Pertinent
Review of Systems
Vital Signs
Temp Pulse Resp BP Pulse Ox
97.7 F 94 26 95/67 97
01/04/25 07:00 01/04/25 09:30 01/04/25 09:30 01/04/25 09:30 01/04/25 09:30
Physical Exam
Physical Exam
Constitutional: Acutely Ill and Non-toxic; Negative Cachetic
Eyes: No Conjunctival Hemorrhage and Sclera Anicteric
Oral: No Thrush and No Ulcers
Cardiovascular: Regular Rate and S1/S2; Negative S3/S4 or Murmur
Pulmonary: Rhonchi, Coarse and Other (Moderately labored.)
Gastrointestinal: Soft, Non Tender, Non Distended, Normal Bowel Sounds, No Rebound and No Guarding
Extremities: Negative Edema, Cyanosis or Erythema
Skin: Warm and Dry; Negative Rash or Jaundice
Wound: None
Neurological: Other (Somnolent but arousable.)
Psychological: Calm
.
Lab / Diagnostic Study Results
01/04/25 02:19
01/04/25 02:19
Abs Immat Gran (auto) 0.0 10^3/uL (0-0.05) 01/03/25 14:04
Absolute Neuts (auto) 0.7 10^3/uL (1.4-6.5) L* 01/03/25 14:04
Absolute Lymphs (auto) 0.2 10^3/uL (1.2-3.4) L 01/03/25 14:04
Absolute Monos (auto) 0.1 10^3/uL (0.1-0.6) 02/15/25 14:04
Absolute Basos (auto) 0.0 10^3/uL (0-0.2) 01/03/25 14:04
Total Counted Cancelled 01/03/25 14:04
Immature Gran % 2.0 % (0-0.5) H 01/03/25 14:04
Neutrophils % 70.5 % (42.2-75.2) 01/03/25 14:04
Lymphocytes % 20.6 % (20.5-51.1) 01/03/25 14:04
Monocytes % 6.9 % (1.7-9.3) 01/03/25 14:04
Eosinophils % 0.0 % (0-6) 01/03/25 14:04
Basophils % 0.0 % (0-2) 01/03/25 14:04
Abs Neuts (Manual) Cancelled 01/03/25 14:04
Segmented Neutrophils Cancelled 01/03/25 14:04
Band Neutrophils Cancelled 01/03/25 14:04
Lymphocytes (Manual) Cancelled 01/03/25 14:04
Eosinophils (Manual) Cancelled 01/03/25 14:04
Basophils (Manual) Cancelled 01/03/25 14:04
PT 15.8 Sec (11.4-14.6) H 01/03/25 14:04
INR 1.23 01/03/25 14:04
Lactic Acid 2.8 mmol/L (0.7-2.0) H 01/04/25 06:11
Ur Squamous Epith Cells >30 /LPF (Few) 01/04/25 01:21
Microbiology Results
Micro:
01/04/25 01:21 Legionella Urinary Antigen - Final
Urine Negative for Legionella pneumophila Serogroup 1 antigen.
A negative result does not rule out the possiblity of
Legionella infection due to other serogroups or species of
Legionella. Clinical correlation is recommended.
Streptococcus pneumoniae Antigen (M - Final
Positive for Strep pneumo Ag
01/03/25 14:24 Blood Culture - Preliminary
Blood/Venous Positive culture in progress
Gram Stain - Preliminary
01/03/25 14:24 Blood Culture - Preliminary
Blood/Venous Positive culture in progress
Gram Stain - Preliminary
01/04/25 01:21 Urine Culture - Pending
Urine
01/03/25 14:04 Influenza Types A & B (STEVE) - Final
Nasal Swab Influenza A Positive, NAAT
Imaging:
01/03/2025 CXR (portable): Interstitial and airspace opacity is demonstrated in the infrahilar region bilaterally, extending into the lower lobes, left greater than right, consistent with pneumonia. No radiographically demonstrable pleural effusion.
No pneumothorax. No CHF. Please see full dictation for additional detail. Film personally viewed.
Assessment / Plan
Clinical sepsis
Influenza A infection (severe)
Strep pneumo pneumonia
Strep pneumo bacteremia
Profound neutropenia; likely secondary to sepsis
ERIC
Hypoxemic respiratory failure; on high flow O2
Thrombocytopenia
Lactic acidosis
Recommendations:
Continue with Tamiflu.
Increase ceftriaxone to 2 g IV every 12 hours (higher dose given significant neutropenia)
Continue Azithromycin.
Monitor white count for improvement.
Trend temperature curve
Monitor respiratory status closely.
Trend lactate for improvement.
Continue with supportive measures.
Further recommendations as additional data is returned.
Patient critically ill in intensive care unit
Care Review
Plan reviewed with: Physician (Critical care)
[2025-01-04 09:53] LABS: Absolute Neutrophils -Man Diff 0.2 10^3/uL (1.4-6.5); Band Neutrophils 28 % (0-3)
--- NOTE | 2025-01-04 09:55 | PTCARENOTE ---
Received pt resting in bed, lethargic but oriented. generalized body aches/pains. Ofirmev scheduled. SR w/ BBB on tele, HR 80-90s. Levo off. Has dry mucous membranes. Dyspnea at rest. On high flow 45L/100%. Spo2 91-92%. Lungs diminished throughout.
+ bowel mvmt. Poor appetite. Urinal at bedside. R AC and R FA IVs with LR @ 150ml/hr. Call marroquin in reach. SCD applied. + BC-Yarn Handler notified, ID consulted. Family at bedside.
[2025-01-04 09:57] LABS: Metamyelocytes 4 % (-); Myelocytes 6 % (-)
[2025-01-04 09:59] LABS: Eosinophils 2 % (0-6); Monocytes 12 % (2-9)
[2025-01-04 10:02] LABS: Lymphocytes 40 % (20-51); Segmented Neutrophils 8 % (42-75)
[2025-01-04 10:03] LABS: Normal RBC Morphology Yes; Total Cells Counted 100
[2025-01-04 10:04] LABS: Platelets Checked Yes
--- NOTE | 2025-01-04 10:49 | W.PN.UPDATE ---
Update Note
Progress Note Update
Reevaluated the patient at the bedside-not on pressors, oxygenating with saturations 96% on high flow, somewhat lethargic, WBCs low-seen by infectious disease, hematology to see
Patient's and more specifically her mother or the patient's [id number] is a nurse practitioner in oncology-she 'insists on transfer today to [facility]'
Dr. York spoke to the transfer center again as well as the attending Dr. Altaf Lees sp-explained current clinical situation-he stated that they are aware of the patient and based on acuity is lower priority than some other critical care patients
that need to come in-I explained that the family insists on transfer and he stated that that is not a criteria to increase priority-he stated that if there was change in status and more emergent need for transfer such as ventilator dependence,
potential need for ECMO then transfer can be reevaluated as well as priority list
Dr. York spoke to as well as tavtdi-dc-vqk-[place]-nurse practitioner in oncology and explained current clinical situation, reality in regards to transfer, realistic transfer time, and she repeatedly asked if he could be preemptively
transferred and I explained once again my conversation with [facility] messenger copy that at this moment he is a lower priority than some other patients, however, that could change if he deteriorates
Explained potential for further deterioration including potential for ventilator or even ECMO needs-she understands and they are 'very scared' of how sick he is-I sympathized and agreed that he is extremely sick and has a potential to deteriorate.
Support emotionally was provided and reassurance that we will do everything and attempts to reverse, stabilize, and improve his current clinical situation and if he deteriorated we would reach out to [facility] with change in clinical status in the hopes
of more rapid transfer.
Currently the patient is in queue for transfer and [facility] is aware of patient, name, clinical situation and will be transferred in the appropriate manner
Reviewed with critical care nursing
TTS in critical care-95 minutes thus far today
[2025-01-04 10:52] LABS: Lactic Acid 2.3 mmol/L (0.7-2.0)
[2025-01-04] MEDS: ATIVAN 1 MG PO ×2 (11:12→19:03)
[2025-01-04] MEDS: STERILE WATER FOR INJECTION 20 ML IV ×2 (11:13→22:10)
[2025-01-04] MEDS: ROCEPHIN 2000 MG IV ×2 (11:13→22:10)
--- NOTE | 2025-01-04 11:41 | PTCARENOTE ---
Upholstery Covers Inspector discussed with and MIL of patient status of [facility] transfer and low priority status of pt for [facility] bed. Pt reporting anxiety. PO ativan given as ordered.
[2025-01-04 15:11] LABS: Lactic Acid 2.8 mmol/L (0.7-2.0)
[2025-01-04] MEDS: LOVENOX 40 MG SC (17:55)
--- NOTE | 2025-01-04 18:06 | PTCARENOTE ---
Assessment unchanged. FiO2 weaned to 35L/60%. SpO2 92-95%. MURPHY, high-fowlers position throughout day.
--- NOTE | 2025-01-04 20:00 | PTCARENOTE ---
Received pt resting in bed, AAOx3. C/O fatigue, weakness, tiredness and anxiety. PRN Ativan PO given. Scheduled ofirmev administered. NSR on tele with BBB. HR 90-100s. BP stable 100-120/70s. SCDs on. Afebrile. + pulses, no edema. On high flow
35L/60%. Lungs diminished throughout, coarse bibasilar. Encouraged deep breathing, pt reports difficulty with deep breaths. + bowel sounds. Regular diet but very poor appetite. Assisted to bedside commode to void 650ml neena urine. R AC with LR @
150ml/hr. R FA IV capped. Repeat lactic sent. Family at bedside.
[2025-01-04 20:28] LABS: Lactic Acid 2.4 mmol/L (0.7-2.0)
[2025-01-05] VITALS (20 sets, daily range): BP systolic 105–150; BP diastolic 68–106; PULSE 108; O2SAT 97; BMI 21.9
[2025-01-05 00:03] LABS: Lactic Acid 1.5 mmol/L (0.7-2.0)
--- NOTE | 2025-01-05 00:30 | PTCARENOTE ---
Pt. reassessed. Resting when undisturbed. RT placed on 50L/60%. Spo2 93-96%. Lactic repeated- normalized at 1.5.
[2025-01-05] MEDS: TYLENOL 650 MG PO ×3 (03:59→19:46)
[2025-01-05 04:48] LABS: Hematocrit 29.2 % (39.0-52.0); Hemoglobin 10.4 g/dL (13.0-18.0); Mean Corp Hgb Conc. 35.6 g/dL (33.0-37.0); Mean Corpuscular Volume 87.2 fL (80.0-94.0); Mean Platelet Volume 12.1 fL (7.4-10.4); Platelet Count 51 10^3/uL (130-400); Red Blood Cell Count 3.35 10^6/uL (4.70-6.10); Red Cell Dist. Width 12.3 % (11.5-14.5); White Blood Cell Count 2.6 10^3/uL (4.8-10.8)
[2025-01-05] MEDS: DILAUDID 0.5 MG IV (05:01)
[2025-01-05 05:03] LABS: ALT (SGPT) 19 U/L (0-50); AST (SGOT) 36 U/L (17-59); Albumin 2.2 g/dl (3.5-5.0); Alkaline Phosphatase 71 U/L (38-126); Blood Urea Nitrogen 32 mg/dl (9-20); Calcium 7.3 mg/dl (8.4-10.2); Carbon Dioxide 23 mmol/L (22-30); Chloride 105 mmol/L (98-107); Estimated Creatinine Clearance 67 ml/min; Glucose 79 mg/dl (70-99); Magnesium 2.3 mg/dl (1.6-2.3); Potassium 4.3 mmol/L (3.5-5.1); Sodium 136 mmol/L (135-145); Total Bilirubin 0.9 mg/dl (0.2-1.3); eGFR > 60.00
--- NOTE | 2025-01-05 05:07 | PTCARENOTE ---
Addendum entered by Lisha Cabrera RN 01/05/25 05:42:
Pt. reassessed - resting/sleeping calmly, less restless than prior. In chair position in bed.
Original Note:
Around 0400, pt reported some mild pain throughout body. PO tylenol given at that time. Now, pt. reporting increased pain 6-05/28. INDEXER notified. IV dilaudid ordered and given. Will reassess shortly. Pt. feels he cannot get comfortable in bed,
attempted repositioning. Throughout night, pt reports vivid dreams, frequently talking in his sleep.
[2025-01-05] MEDS: VANCOCIN 150 IV (05:30)
[2025-01-05] MEDS: LR 1000 IV (05:32)
--- NOTE | 2025-01-05 07:17 | W.PN.INTV ---
Addendum entered and electronically signed by Coreen Daly DO 01/05/25 13:43:
Now on 10L, improving
Can transfer to [facility], we will follow on the floors
Original Note:
Today's Communication / Plan
Recommendations
Improving on HFNC, IS effort very poor
Will start IV steroids now, can taper with continued improvement
Needs aggressive PT/OT, OOB reviewed with family
ID following, abx per team
Family is ok with cancelling transfer to [place] given improvement
Assessment
-
44-year-old male without significant past medical history presented with shortness of breath, cough, found to have influenza as well as bilateral pneumonia-duct layer consulted for respiratory failure, pneumonia, influenza, and critical care
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
Sepsis with shock unresponsive to fluids requiring pressors
Qdikmtacq-bvfrsivso-qrgnnjsw-strep pneumonia suspected
Influenza A
Bacteremia-suspect streptococcal
Leukopenia
Thrombocytopenia
Lactic acidosis
ERIC
Hypocalcemia
Conditions present prior to admission:
Depression/anxiety
GERD
Plan
RASS goal 0, denies pain
Resume on home anti-anxiety meds
Stop ativan
PRN pain meds
Not on pressors, stable
No cardiac history is noted, monitor on telemetry
No prior ECHO for review
EKG as needed
Remains on high flow oxygen but settings are weaning down, now on 60% and 50LPM
Can likely transition to midflow
Supplemental oxygen as needed
Effort on IS is poor: <500mL, I reviewed with patient and family at bedside on efforts
Mucolytic's/nebs and airway clearance measures ongoing
Add IV steroids today, taper as patient improves
Follow chest x-ray PRN
Diet advancement, tolerating
Aspiration precautions
Poor overall intake
Can stop IVFs once adequate intake established
Dietary consult
Cultures reviewed--presumed strep PNA
Influenza A+, Tamiflu continues
Sputum culture-pending/unable to produce
Blood culture 2/3-ezlqbxmg-Ivdc-positive cocci in pairs and chains
Urine Legionella-negative
Urine strep pneumonia antigen-positive
Empiric miyclmueopm-uyttcclagqv-ofidtajty dose and azithromycin
1 dose of vancomycin also provided
ID following
Monitor leukopenia and thrombocytopenia
Neutropenic precautions
Hematology evaluation-Dr. York placed consult to Dr. Cash
This was requested by family
DVT prophylaxis ehklzzrlsci-jeapcqeztq-qz edema, negative Homans, and significant thrombocytopenia
Bedside range of motion/early mobilization
PT/OT eval
Monitor renal function
Nephrology evaluation if renal function does not improve
Consider bicarb
No history of DM, thyroid disease
Accu checks/Monitor as needed
Reviewed plan of care with family at bedside
They are ok wtih cancelling transfer
Diagnostic Data:
Chest x-ray 01/03/2025-bibasilar pneumonia left greater than right
-----
Critical care statement: A total of 51 minutes of critical care time was provided for this patient today. This includes management of unstable vital signs, evaluation of the patient at bedside, reviewing the patient's pertinent medical records
including radiographs, pressor management, respiratory failure management, sepsis management, microbiology, laboratory evaluations, and discussion with primary team, consultants, pharmacy, nutrition, physical therapy, case management, charge nurse,
critical care nursing, and respiratory therapy and coordination of care.
Subjective Dataa
Subjective Data
Date of Service:
Date of Service: January 05, 2025
Chief Complaint: Reject Opener Follow Up, Pulmonary Follow Up and Pneumonia Follow Up
Subjective:
Remains on HFNC but improving
Settings now are 60% and 50LPM
Effort on IS is <500mL, has not gotten OOB yet
Family at bedside
Objective Data
Data Reviewed
Vital Signs / I&O / Oxygen:
Vital Signs
Temp Pulse Resp BP Pulse Ox
99 F 92 28 112/75 96
01/05/25 04:07 01/05/25 06:45 01/05/25 06:45 01/05/25 06:00 01/05/25 06:45
Intake and Output
01/04/25 01/05/25 01/06/25
06:59 06:59 06:59
Intake Total 2962.8 / 3112.8 4600 / 4600
Output Total 425 / 425 1350 / 1350
Balance 2537.8 / 2687.8 3250 / 3250
SaO2 96
Nasal Cannula flow liters per 50
minute
Physical Exam
General: Respiratory Distress (n) and Comfortable
HEENT: Normocephalic, Anicteric and Moist Mucous Membranes
Cardiovascular: Regular Rhythm and Murmur (n)
Respiratory: Crackles (Bilateral basilar), Rhonchi (Few expiratory ) and Accessory Resp Muscle Use (n)
GI: Soft, Non Distended and Non Tender
Neurology: Awake, Alert, Oriented, No Motor Deficits and Depressed
Skin: Warm, Good Color, Cyanosis (n), Jaundice (n) and Rash (n)
Labs/Micro/Reports
Lab Data
01/05/25 03:53
01/05/25 03:53
Microbiology
01/04/25 01:21 Urine Legionella Urinary Antigen - Final
Negative for Legionella pneumophila Serogroup 1 antigen.
A negative result does not rule out the possiblity of
Legionella infection due to other serogroups or species of
Legionella. Clinical correlation is recommended.
01/04/25 01:21 Urine Streptococcus pneumoniae Antigen (M - Final
Positive for Strep pneumo Ag
01/03/25 14:24 Blood/Venous Blood Culture - Preliminary
Positive culture in progress
01/03/25 14:24 Blood/Venous Gram Stain - Preliminary
01/03/25 14:24 Blood/Venous Blood Culture - Preliminary
Positive culture in progress
01/03/25 14:24 Blood/Venous Gram Stain - Preliminary
01/03/25 14:04 Nasal Swab Influenza Types A & B (STEVE) - Final
Influenza A Positive, NAAT
[2025-01-05] MEDS: TAMIFLU 30 MG PO (08:08)
[2025-01-05] MEDS: PROTONIX 20 MG PO (08:08)
[2025-01-05] MEDS: ZITHROMAX 500 MG PO (08:08)
[2025-01-05 08:34] LABS: Absolute Neutrophils -Man Diff 2.3 10^3/uL (1.4-6.5); Band Neutrophils 33 % (0-3); Lymphocytes 3 % (20-51); Metamyelocytes 1 % (-); Monocytes 4 % (2-9); Segmented Neutrophils 59 % (42-75)
[2025-01-05 08:35] LABS: Normal RBC Morphology Yes; Platelets Checked Yes; Total Cells Counted 100
--- NOTE | 2025-01-05 08:37 | PTCARENOTE ---
report received, assessments per work list. patient oriented, very drowsy, but arousable. talks to self, mumbling at times. assistX1 to commode, voided neena urine and had formed bowel movement. monitor sr, tachy with activity, bbb. pale,
diaphoretic. high flow per work list. crackles noted bases, diminished and tubular breath sounds. weak moist cough. coughing and deep breathing encouraged. abdomen soft. family at bedside. d/w RT, to attempt to wean high flow. call marroquin in reach
--- NOTE | 2025-01-05 09:53 | W.PN.ID1 ---
Date of Service
Date of Service: January 05, 2025
Today's Communication
Continue antibiotics. See below�
Assessment / Plan
Clinical sepsis
Influenza A infection (severe)
Strep pneumo pneumonia with bacteremia
Profound neutropenia; likely secondary to sepsis
- improved
ERIC
- improved
Hypoxemic respiratory failure; on high flow O2
Thrombocytopenia
Lactic acidosis
Recommendations:
Although CXR appears worse today, patient appears clinically improved, with decreased O2 requirements.
Continue with Tamiflu.
Continue ceftriaxone; decrease to 2 gm q24 hours.
Continue Azithromycin to complete a 5-day course.
Monitor white count for continued improvement.
Trend temperature curve
Monitor respiratory status closely.
Continue with supportive measures.
Further recommendations as additional data is returned.
Chief Complaint
-: Pneumonia, Bacteremia and Other (Influenza)
Subjective / Review of Systems
Patient seen examined. Now off high flow O2 and onto mid flow O2 at 10 L. Reports increased strength today.
Vital Signs / Physical Exam
Vital Signs
Vital Signs
Temp Pulse Resp BP Pulse Ox
98.7 F 92 28 112/75 96
01/05/25 07:26 01/05/25 06:45 01/05/25 06:45 01/05/25 06:00 01/05/25 09:43
Physical Exam
Constitutional: Comfortable, Acutely Ill and Non-toxic
Head: Normocephalic
Eyes: Pupils Equal, Pupils Round, No Conjunctival Hemorrhage and Sclera Anicteric
Cardiovascular: S1/S2; Negative S3/S4
Pulmonary: Coarse and Non Labored
Gastrointestinal: Soft, Non Tender and Non Distended
Neurological: Awake and Alert
Psychological: Calm
Objective Data
Lab Data
Lab Results
01/05/25 03:53
01/05/25 03:53
PT 15.8 Sec (11.4-14.6) H 01/03/25 14:04
INR 1.23 01/03/25 14:04
APTT 47.0 Sec (23.4-35.0) H 01/03/25 14:04
Estimated Creat Clear 67 ml/min 01/05/25 03:53
Lactic Acid 1.5 mmol/L (0.7-2.0) 01/04/25 23:42
Total Bilirubin 0.9 mg/dl (0.2-1.3) 01/05/25 03:53
AST 36 U/L (17-59) 01/05/25 03:53
ALT 19 U/L (0-50) 01/05/25 03:53
Alkaline Phosphatase 71 U/L (38-126) 01/05/25 03:53
Most recent labs reviewed.
Chest X-Ray: Image Reviewed and Report Reviewed
Micro Results:
01/04/25 01:21 Legionella Urinary Antigen - Final
Urine Negative for Legionella pneumophila Serogroup 1 antigen.
A negative result does not rule out the possiblity of
Legionella infection due to other serogroups or species of
Legionella. Clinical correlation is recommended.
Streptococcus pneumoniae Antigen (M - Final
Positive for Strep pneumo Ag
01/03/25 14:24 Blood Culture - Preliminary
Blood/Venous Positive culture in progress
Gram Stain - Preliminary
01/03/25 14:24 Blood Culture - Preliminary
Blood/Venous Positive culture in progress
Gram Stain - Preliminary
01/04/25 01:21 Urine Culture - Pending
Urine
01/03/25 14:04 Influenza Types A & B (STEVE) - Final
Nasal Swab Influenza A Positive, NAAT
Imaging:
01/05/2025 CXR (portable): There is been significant worsening of extensive bilateral pneumonia and in her development of bilateral pleural effusions since prior study.
01/03/2025 CXR (portable): Interstitial and airspace opacity is demonstrated in the infrahilar region bilaterally, extending into the lower lobes, left greater than right, consistent with pneumonia. No radiographically demonstrable pleural effusion.
No pneumothorax. No CHF. Please see full dictation for additional detail. Film personally viewed.
Care Review
Plan reviewed with: Physician (Critical Care)
--- NOTE | 2025-01-05 10:18 | CON.ONC ---
Impression
Impression
- neutropenia
- thrombocytopenia
- influenzae A
- strep pneumonia
- Septic shock
Plan
Plan
- pt presenting in septic shock in the setting of influenzae and strep pneumoniae infection. He was requiring pressor support, hi flow O2 however pressors weaned off and now on 10L NC.
- CBC on admission with moderate neutropenia w/ ANC 700 and thrombocytopenia w/ plts 104,000. I suspect cytopenias are in the setting of acute illness. no prior for comparison. ANC showing improvement today with management of infections, up to 2300.
Suspect platelets will start to do the same. would hold off on additional hematology work-up unless counts do not continue to improve with tx of infection.
- infection management per primary team, roll on man.
- CBC daily. transfuse for plts < 20K with active infection, fevers, hgb < 7.0 g/dl.
- neutropenic fevers. no role for G-CSF in this setting and ANC improving.
Patient History
History of Present Illness
Pt is a 44 yo M with no PMHx that presented with increased work of breathing, productive cough, body ache, chills, and fever x 4 days. Infectious work-up positive for flu A, strep pneumo. CBC on admission with WBC 1.0 with ANC 700 which is improved
today up to 2.6 with ANC 2,300. Hgb 14.2 g/dl on admission with decrease to 10.4 g/dl today. Platelets also with slow downtrend from 104K on admission to 51k today. Pt has no prior hx of cytopenias, thinks last routine labs with PCP 1.5 years ago.
Prior to recent illness he denies unexplained weight loss, fatigue, night sweats, issue with frequent infections. Pt lethargic however feels cough improved. He is now on 10 L NC, no longer on pressor support. Parents at beside.
Patient Medication
�Medication �Instructions �Recorded �Confirmed �Last Taken �Type
dextroamphetamine-amphetamine 30 30 mg PO BID 01/03/25 01/03/25 Unknown History
mg tablet
escitalopram oxalate 20 mg tablet 20 mg PO HS 01/03/25 01/03/25 Unknown History
(Lexapro)
ibuprofen 200 mg tablet 200 mg PO Q6HPRN PRN mild 01/03/25 01/03/25 Unknown History
pain/headache/fever
lansoprazole 15 mg capsule,delayed 15 mg PO DAILY 01/03/25 01/03/25 Unknown History
release
Active Medications
Generic Name Dose Route Start Last Admin
Trade Name Freq PRN Reason Stop Dose Admin
Acetaminophen 650 mg 01/04/25 16:10 01/05/25 03:59
Acetaminophen 325 Mg Tablet PO 02/01/25 16:09 650 mg
Q4HPRN PRN Administration
fever or mild pain
Albuterol 2 puff 01/05/25 09:47
Albuterol Hfa [90 Mcg/Dose] Inhaler INH
R Q4HPRN PRN
dyspnea
Protocol
Azithromycin 500 mg 01/04/25 08:00 01/05/25 08:08
Azithromycin 250 Mg Tablet PO 500 mg
DAILY MALU Administration
Ceftriaxone Sodium 2,000 mg 01/05/25 10:00
Ceftriaxone 2,000 Mg/20 Ml Vial IV
Q24H MALU
Dexamethasone Sodium Phosphate 4 mg 01/05/25 10:00
Dexamethasone 4 Mg/Ml 1 Ml Vial IV 02/02/25 09:59
Q12H MALU
Enoxaparin Sodium 40 mg 01/04/25 18:00 01/04/25 17:55
Enoxaparin Sodium 40 Mg/0.4 Ml Syringe SC 02/01/25 17:59 40 mg
QPM MALU Administration
Lactated Ringer's 1,000 mls @ 75 mls/hr 01/03/25 16:50 01/05/25 05:32
Lr IV 1,000 mls
[id number] MALU Administration
Oseltamivir Phosphate 75 mg 01/05/25 20:00
Oseltamivir (Tamiflu) 75 Mg Capsule PO 01/08/25 08:01
BID MALU
Pantoprazole Sodium 20 mg 01/04/25 08:00 01/05/25 08:08
Pantoprazole 20 Mg Delayed Release Tablet PO 02/01/25 07:59 20 mg
DAILY MALU Administration
Sodium Chloride 0 flush 01/03/25 18:00
Sodium Chloride 0.9% (Flush) Syringe IV 01/31/25 17:59
PER PROTOCOL MALU
Review of Systems
-
History Source: Patient
Constitutional: Reports Fever, No Appetite and Fatigue; Denies Weight Loss
Respiratory: Reports Cough and Trouble Breathing
Cardiac: Denies Palpitations
GI: Denies Abdominal Pain
Musculoskeletal: Reports Arthralgias
Neuro: Denies Dizzy or Headache
Hematologic/Lymphatic: Denies Bleeding or Bruising
Physical Exam
-
General: Well Developed, Well Nourished and Conversant (lethargic but arousable )
HEENT: Negative Jaundice
Cardiology: Normal Sinus Rhythm
Pulmonary: Rhonchi
GI: Soft; Negative Distended
Musculoskeletal: No Edema
Extremities: Negative Edema
Neurology: Non Focal
Psych: Calm
Labs
Lab Results
WBC 2.6 10^3/uL (4.8-10.8) L 01/05/25 03:53
RBC 3.35 10^6/uL (4.70-6.10) L 01/05/25 03:53
Hgb 10.4 g/dL (13.0-18.0) L 01/05/25 03:53
Hct 29.2 % (39.0-52.0) L 01/05/25 03:53
MCV 87.2 fL (80.0-94.0) 01/05/25 03:53
MCH 31.0 pg (27.0-31.0) 01/05/25 03:53
MCHC 35.6 g/dL (33.0-37.0) 01/05/25 03:53
RDW 12.3 % (11.5-14.5) 01/05/25 03:53
Plt Count 51 10^3/uL (130-400) L D 01/05/25 03:53
MPV 12.1 fL (7.4-10.4) H 01/05/25 03:53
Abs Immat Gran (auto) 0.0 10^3/uL (0-0.05) 01/03/25 14:04
Absolute Neuts (auto) 0.7 10^3/uL (1.4-6.5) L* 01/03/25 14:04
Absolute Lymphs (auto) 0.2 10^3/uL (1.2-3.4) L 01/03/25 14:04
Absolute Monos (auto) 0.1 10^3/uL (0.1-0.6) 01/03/25 14:04
Absolute Eos (auto) 0.0 10^3/uL (0-0.7) 01/03/25 14:04
Absolute Basos (auto) 0.0 10^3/uL (0-0.2) 01/03/25 14:04
Immature Gran % 2.0 % (0-0.5) H 01/03/25 14:04
Neutrophils % 70.5 % (42.2-75.2) 01/03/25 14:04
Lymphocytes % 20.6 % (20.5-51.1) 01/03/25 14:04
Monocytes % 6.9 % (1.7-9.3) 01/03/25 14:04
Eosinophils % 0.0 % (0-6) 01/03/25 14:04
Basophils % 0.0 % (0-2) 01/03/25 14:04
Creatinine 1.2 mg/dL (0.7-1.3) 01/05/25 03:53
Vital Signs
Vital Signs
Temp Pulse Resp BP Pulse Ox
98.7 F 92 28 112/75 96
01/05/25 07:26 01/05/25 06:45 01/05/25 06:45 01/05/25 06:00 01/05/25 09:43
--- NOTE | 2025-01-05 10:26 | PTCARENOTE ---
patient oob to chair, family at bedside. patient climbing out of chair to bed. family instructed to use call system. patient assisted to bed as he refuses to sit in chair any longer. bed alarm activated. call marroquin in reach
--- NOTE | 2025-01-05 11:18 | W.PN.HOSP.TC ---
Today's Communication/Plan
-
Agree with IV steroid regimen
Give 1 dose IV Lasix for now
Continue azithromycin/CTX/vancomycin
As needed bronchodilators
Wean oxygen for SpO2 goal >90%
Possible downgrade to telemetry later
Assessment / Plan
Assessment / Plan
#Acute hypoxic respiratory failure
#Sepsis with strep pneumo bacteremia
#Severe influenza A infection
-Likely postviral/superimposed bacterial pneumonia with S. pneumoniae; (+) strep Ag
-Has required high flow oxygen while here, up to 50 L this via high flow NC as of this morning
-Was started on Tamiflu course, ceftriaxone and azithromycin; ID added vancomycin
-Chest x-ray as of 01/05 shows worsening right-sided consolidation, b/l effusions
-Spoke with ICU about starting steroid which was ordered for severe pneumonia
Plan
-Continue IV azithromycin, ceftriaxone, vancomycin
-Continue with dexamethasone IV 4 mg every 12 hour
-Will speak with ICU about dose of IV Lasix 20 mg
-Trend CBC, temperature curve, BMP
-SpO2 goal >90%
#Profound neutropenia
#Thrombocytopenia
#Multifactorial pancytopenia
-Suspect that this is consumptive process with severe infection
-No known underlying bone marrow disorders or vitamin deficiencies
-Added on vitamin B12 and folate levels to assess
-Continue with neutropenic precautions
#Hypoalbuminemia
-Albumin level only 2.2
-May be related to illness, however patient is young and without significant comorbidity
-Question long-term poor nutrition with albumin
#S/p septic shock
-Has been titrated off Levophed
-Monitor vital signs off of vasopressors
-MAP goal >65 mmHg
#Acute kidney injury
-Suspect septic ATN versus prerenal insult
-Resolved
#Anxiety
-Ativan as needed
#GERD
-Continue PPI
#Anxiety/depression
-Continue SSRI
#ADHD
-Hold Adderall
DVT prophylaxis: subcu Lovenox
CODE STATUS: Full code
Diet: Regular
I discussed the case with the urban redevelopment specialist, patient's family was at bedside
Anticipated Discharge: > 48 hours
Subjective/Interval History
-
Date of Service: January 05, 2025
Seen and examined at the bedside. No acute events reported overnight. Oxygen requirements up to 50 L via high flow nasal cannula as of this morning though improving later on in the day. Otherwise AFVSS
Renal function improved and close to baseline. WBC improving though platelet count slowly worsening
He denies any new complaints. States he feels that his breathing was pretty good as of this morning. Denied chest pain or dyspnea, does have dry cough
Objective Data
-
Labs:
Laboratory Results
01/05/25
03:53
WBC 2.6 L
Hgb 10.4 L
Hct 29.2 L
Plt Count 51 L D
Sodium 136
Potassium 4.3
Chloride 105
Carbon Dioxide 23
BUN 32 H
Creatinine 1.2
Glucose 79
Calcium 7.3 L
Total Bilirubin 0.9
AST 36
ALT 19
Alkaline Phosphatase 71
Vital Signs:
Vital Signs
Temp Pulse Resp BP Pulse Ox
99 F 92 21 108/85 98
01/05/25 11:00 01/05/25 10:30 01/05/25 10:30 01/05/25 10:00 01/05/25 10:30
I&O
01/04/25 01/05/25 01/06/25
06:59 06:59 06:59
Intake Total 2962.8 / 3112.8 4600 / 4750 645 / 645
Output Total 425 / 425 1350 / 1350
Balance 2537.8 / 2687.8 3250 / 3400 645 / 645
Review of Systems
-
History Source: Patient
All other systems: Reviewed and negative
Physical Exam
-
General: No Apparent Distress, Conversant and Other (Thin appearing male)
HEENT: Normocephalic, Atraumatic, Moist Mucous Membranes, Anicteric and Oxygen
Respiratory: Rhonchi, Non Labored Respirations and Decreased Breath Sounds (Bibasilar); Negative Accessory Resp Muscle Use
Cardiac: Regular Rhythm and S1/S2; Negative Murmur, Rub or Gallop
GI: Soft, Nontender, Nondistended and Normal Bowel Sounds
Musculoskeletal: No Clubbing, No Cyanosis and No Edema
Skin: Warm, Dry and Normal Turgor; Negative Rash
Neuro: AO x 3 and Nonfocal/Grossly Intact; Negative Tremors
Psych: Calm
Data Reviewed
-
Diagnostic Radiology: Report Reviewed by me and Discussed with Physician ([facility])
Labs: Labs Reviewed by me and Discussed with Patient
[2025-01-05] MEDS: STERILE WATER FOR INJECTION 20 ML IV (12:00)
[2025-01-05] MEDS: LASIX 20 MG IV ×2 (12:00→23:29)
[2025-01-05] MEDS: DECADRON 4 MG IV ×2 (12:00→23:10)
[2025-01-05] MEDS: ROCEPHIN 2000 MG IV (12:01)
[2025-01-05] MEDS: FLUSH (NSS) 2 FLUSH IV (12:01)
--- NOTE | 2025-01-05 12:27 | PTCARENOTE ---
remains impulsive and anxious at times. bed alarm for patient safety.able to redirect. tylenol administered per prn order. oxygen weaned to 6 liters. moist weak nonproductive cough. call marroquin in reach
[2025-01-05] MEDS: FLUSH (NSS) IV (12:37)
[2025-01-05] MEDS: LR IV (13:00)
--- NOTE | 2025-01-05 13:27 | CM ---
CM following re: discharger planning.
Discussed in Rounds, reviewed pt's chart, met with pt. Pt's spouse, pt's mother and father at bedside.
Pt is a 44 year old male, admitted with primary dx of Sepsis with shock. Sapbpdtpg-ngluyqcsg-qefjhbug-strep pneumonia suspected, Influenza A.
Per Rounds meeting, pt requires 50 L HFNC with FIO2 60%, continue supportive care.
Pt reports he lives with spouse and 4 children in a 2SH, 2 steps to enter. pt described himself as independent in all areas [employer], drives, works.
CM received a phone call from [facility] transfer center public health representative [place] [phone] and she confirmed that pt is accepted for transfer and an auth from [facility] requested. Per MD pt's spouse declined a transfer and this CM
was asked to confirm with pt's spouse again. CM spoke to pt's spouse and she confirmed she cancelled the transfer and she preferred pt remains at for treatment.
PCP: Oswaldo Barrow
Pharmacy: [facility].
D/C plan:home when medically stable with anticipated no needs.
CM will follow with discharge plan updates as hospitalization progresses
[2025-01-05 14:01] LABS: Folate 2.5 ng/ml (2.76-20); Vitamin B12 > 1000 pg/ml (239-931)
--- NOTE | 2025-01-05 15:10 | PTCARENOTE ---
Addendum entered by Betzaida Santos RN 01/05/25 16:48:
report to [facility] RN and transfer with all belongings.
Original Note:
tele level of care, more alert and cooperative. oxygen weaned to 2 liters nasal cannula. family updated with plan of care and transfer to tele. awaiting bed to be cleaned
[2025-01-05] MEDS: LOVENOX 40 MG SC (17:17)
[2025-01-05] MEDS: TAMIFLU 75 MG PO (19:56)
[2025-01-05] MEDS: LEXAPRO 20 MG PO (20:05)
--- NOTE | 2025-01-05 20:10 | PTCARENOTE ---
Addendum entered by John Bar RN 01/05/25 23:34:
Pt and were able to calm down and they were explain about the tx plan. Pt was order a dose of Ativan PO. Pt lung sounds were crackle and diminished. O2 was increased to 4L. VOICE DATA COMMUNICATIONS ENGINEER notified and Lasix order. remains at bedside.
Original Note:
Pt and states they been calling for 30 min. No call marroquin noted and was inform of the situation. Pt and were agitated, anxious and disrespectful to upcoming staff. demanding to talk to supervisor adult education. Pt and were informed they will
look into the problem and will assess pt and bring him his med. Pt continue to be disrespectful and was inform it will not be tolerated. Will cont tx.
[2025-01-05] MEDS: ATIVAN 1 MG PO (20:22)
[2025-01-06] VITALS (8 sets, daily range): BP systolic 111–135; BP diastolic 70–94; BMI 21.6; BMI 21.0
[2025-01-06] MEDS: TYLENOL 650 MG PO (02:45)
[2025-01-06] MEDS: PROTONIX 20 MG PO (07:41)
[2025-01-06] MEDS: ZITHROMAX 500 MG PO (07:41)
[2025-01-06] MEDS: TAMIFLU 75 MG PO ×2 (07:41→19:22)
[2025-01-06 08:30] LABS: Hematocrit 32.8 % (39.0-52.0); Hemoglobin 11.5 g/dL (13.0-18.0); Mean Corp Hgb Conc. 35.1 g/dL (33.0-37.0); Mean Corpuscular Hgb 30.5 pg (27.0-31.0); Mean Platelet Volume 12.2 fL (7.4-10.4); Platelet Count 49 10^3/uL (130-400); Red Blood Cell Count 3.77 10^6/uL (4.70-6.10); Red Cell Dist. Width 12.9 % (11.5-14.5); White Blood Cell Count 16.1 10^3/uL (4.8-10.8)
[2025-01-06 08:39] LABS: ALT (SGPT) 18 U/L (0-50); AST (SGOT) 47 U/L (17-59); Albumin 2.3 g/dl (3.5-5.0); Alkaline Phosphatase 165 U/L (38-126); Blood Urea Nitrogen 28 mg/dl (9-20); Calcium 7.7 mg/dl (8.4-10.2); Carbon Dioxide 28 mmol/L (22-30); Chloride 102 mmol/L (98-107); Estimated Creatinine Clearance 84 ml/min; Glucose 103 mg/dl (70-99); Potassium 3.5 mmol/L (3.5-5.1); Sodium 139 mmol/L (135-145); Total Bilirubin 0.9 mg/dl (0.2-1.3); Total Protein 4.1 g/dl (6.3-8.2); eGFR > 60.00
[2025-01-06] MEDS: FOLVITE 50.2 MG IV (08:55)
[2025-01-06 08:57] LABS: Absolute Neutrophils -Man Diff 14.4 10^3/uL (1.4-6.5); Band Neutrophils 10 % (0-3); Lymphocytes 5 % (20-51); Metamyelocytes 1 % (-); Monocytes 4 % (2-9); Platelets Checked Yes; Segmented Neutrophils 80 % (42-75)
[2025-01-06 08:58] LABS: Normal RBC Morphology Yes; Total Cells Counted 100
--- NOTE | 2025-01-06 09:40 | W.PN.ONC2 ---
Today's Communication / Plan
-
.
Impression
Impression
- neutropenia -resolved
- thrombocytopenia. 4T score 1-2, low probability <5% HIT
- influenzae A on Tamiflu
- strep pneumonia bacteremia
- Septic shock
- folate deficiency
Plan
Plan
- pt presenting in septic shock in the setting of influenzae and strep pneumoniae infection. He was requiring pressor support, hi flow O2 however pressors weaned off and now on 4L NC.
- CBC on admission with moderate neutropenia w/ ANC 700 and thrombocytopenia w/ plts 104,000. I suspect cytopenias are in the setting of acute illness. no prior for comparison. neutropenia resolved today. Suspect platelets will improve. would hold
off on additional hematology work-up unless counts do not continue to improve with tx of infection.
- infection management per primary team
- CBC daily. transfuse for plts < 20K with active infection, fevers, hgb < 7.0 g/dl.
- neutropenic fevers. neutropenia resolved, now with leukocytosis in setting of infection and steroids
-started folic acid supplement 01/06, continue folic acid 1mg daily at discharge. Pt should have repeat folic acid level in 12 weeks with PCP.
Subjective/Objective
Subjective
no new complaints
continues with occasionally productive cough
sitting up at bedside
Vital Signs:
Vital Signs
Temp Pulse Resp BP Pulse Ox
97.9 F 85 18 111/80 96
01/06/25 07:24 01/06/25 07:24 01/06/25 07:24 01/06/25 07:24 01/06/25 07:24
Lab Results:
Laboratory Data
WBC 16.1 10^3/uL (4.8-10.8) H 01/06/25 07:02
Hgb 11.5 g/dL (13.0-18.0) L 01/06/25 07:02
Plt Count 49 10^3/uL (130-400) L 01/06/25 07:02
PT 15.8 Sec (11.4-14.6) H 01/03/25 14:04
INR 1.23 01/03/25 14:04
APTT 47.0 Sec (23.4-35.0) H 01/03/25 14:04
eGFR > 60.00 01/06/25 07:02
Physical Exam
HEENT: Moist Mucous Membranes; No Jaundice
Cardiology: Normal Sinus Rhythm
Pulmonary: Clear
GI: Soft
Extremities: Pulses Present; No Edema
Neuro: Non Focal
--- NOTE | 2025-01-06 10:40 | W.PN.PUL.V3 ---
Today's Communication / Plan
-
.
Continue attempts at weaning FiO2-has decreased from high flow to 4 L
Increased activity.
Continue Tamiflu.
Continue antibiotics-ceftriaxone, azithromycin
Assessment
-
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
Sepsis with shock unresponsive to fluids requiring pressors
Duzkkbeai-qaysbxygx-kjtaqvra-strep pneumonia suspected
Influenza A
Bacteremia-suspect streptococcal
Leukopenia
Thrombocytopenia
Lactic acidosis
ERIC
Hypocalcemia
Conditions present prior to admission:
Depression/anxiety
GERD
Plan
Respiratory status slowly improving.
Continue supplemental oxygen as needed- weaned from high flow to currently on 4 L-96% saturation-attempt to wean.
Incentive spirometry-encouraged
Aspiration precautions..
Mucolytic's
Flutter.
Vest therapy if needs assistance in mucus clearance..
Out of bed in chair encouraged.
Follow chest x-ray
Cultures reviewed--presumed strep PNA
Influenza A+, Tamiflu continues
Sputum culture-pending/unable to produce
Blood culture 2/0-wcxgrnsm-Stkv-positive cocci in pairs and chains-streptococcal pneumonia
Urine Legionella-negative
Urine strep pneumonia antigen-positive
Empiric axtpxfhebpz-tsvjytwannd-oujazkaqp dose and azithromycin
1 dose of vancomycin also provided
ID following-correspondence reviewed
Monitor leukopenia and thrombocytopenia-wbc's now 23,000, platelets 49,000
Neutropenic precautions, discontinued
Hematology evaluation ongoing-correspondence reviewed
Monitor renal function-now normalized
DVT prophylaxis-mechanical and on Lovenox-monitor closely with significant thrombocytopenia
Nutrition
Increase activity/. Eventual physical therapy..
The family had requested transfer as soon as he was admitted-Dr. York and hospitalist spoke to [facility] and eventually benefit was obtained-family subsequently requested discontinuation and thus the patient was not transferred as he was improving
Reviewed with primary team
Diagnostic Data:
Chest x-ray 01/03/2025-bibasilar pneumonia left greater than right
Subjective Data
-
Date of Service:
Date of Service: January 06, 2025
Chief Complaint: Pulmonary Follow Up and Dyspnea Follow Up
Subjective:
Resting, alert, oriented, no complaints of worsening shortness of breath, increased chest congestion, productive cough, or pain
Review of Systems
General: Other ( per HPI)
Objective Data
Data Reviewed
Vital Signs / I&O:
Vital Signs
Temp Pulse Resp BP Pulse Ox
97.9 F 85 18 111/80 96
01/06/25 07:24 01/06/25 07:24 01/06/25 07:24 01/06/25 07:24 01/06/25 08:00
Intake and Output
01/05/25 01/06/25 01/07/25
06:59 06:59 06:59
Intake Total 4600 / 4750 1925 / 1925
Output Total 1350 / 1350 3350 / 3350
Balance 3250 / 3400 -1425 / -1425
SaO2: 96
Nasal Cannula flow liters per minute: 4
Physical Exam
General: Respiratory Distress (n) and Comfortable
HEENT: Normocephalic and Anicteric
Cardiovascular: Regular Rhythm
Respiratory: Crackles ( basilar), Rhonchi ( expiratory), Non-Labored Respirations, Accessory Resp Muscle Use (n) and Stridor (n)
GI: Soft, Non Distended and Non Tender
Neurology: Awake, Alert and No Motor Deficits
Labs/Micro/Reports
Lab Data
01/06/25 07:02
01/06/25 07:02
Microbiology
01/03/25 14:24 Blood/Venous Blood Culture - Preliminary
Streptococcus pneumoniae
01/03/25 14:24 Blood/Venous Gram Stain - Preliminary
01/03/25 14:24 Blood/Venous Blood Culture - Preliminary
Streptococcus pneumoniae
01/03/25 14:24 Blood/Venous Gram Stain - Preliminary
01/04/25 01:21 Urine Urine Culture - Final
NO GROWTH
01/04/25 01:21 Urine Legionella Urinary Antigen - Final
Negative for Legionella pneumophila Serogroup 1 antigen.
A negative result does not rule out the possiblity of
Legionella infection due to other serogroups or species of
Legionella. Clinical correlation is recommended.
01/04/25 01:21 Urine Streptococcus pneumoniae Antigen (M - Final
Positive for Strep pneumo Ag
01/03/25 14:04 Nasal Swab Influenza Types A & B (STEVE) - Final
Influenza A Positive, NAAT
--- NOTE | 2025-01-06 11:09 | W.PN.HOSP.TC ---
Addendum entered and electronically signed by Gennaor Sarkar DO 01/06/25 15:48:
error in dictation: continue with ceftriaxone and azithromycin (vancomycin DC'd)
Original Note:
Today's Communication/Plan
-
Continue with IV ceftriaxone and vancomycin
Continue with IV steroid
Wean oxygen
Trend CBC and temperature curve
IV folate -> PO folate at DC
Assessment / Plan
Assessment / Plan
#Acute hypoxic respiratory failure
#Sepsis with strep pneumo bacteremia
#Severe influenza A infection
-Likely postviral/superimposed bacterial pneumonia with S. pneumoniae; (+) strep Ag
-Has required high flow oxygen while here, up to 50 L this via high flow NC as of this morning
-Was started on Tamiflu course, ceftriaxone and azithromycin; ID added vancomycin
-Chest x-ray as of 01/05 shows worsening right-sided consolidation, b/l effusions
-Spoke with ICU about starting steroid which was ordered for severe pneumonia
-S/p azithromycin course; downtrending O2 requirements, now on 4 L
Plan
-Continue IV ceftriaxone, vancomycin
-Continue with dexamethasone IV 4 mg every 12 hour
-Continue with Lasix IV PRN for pulmonary edema
-Trend CBC, temperature curve, BMP
-SpO2 goal >90%
#Leukocytosis
-Likely secondary to demargination from steroid
-Was leukopenic/neutropenic prior
-Trend CBC on above antibiotic course
#Profound neutropenia
#Thrombocytopenia
#Multifactorial pancytopenia
#Folate deficiency
-Suspect that this is consumptive process with severe infection
-No known underlying bone marrow disorders or vitamin deficiencies
-Added on vitamin B12 and folate levels to assess
-Continue with neutropenic precautions
-Start IV folate daily, plan for oral after
-Educated patient on proper diet, encouraged a banana daily
#Hypoalbuminemia
-Albumin level only 2.2
-May be related to illness, however patient is young and without significant comorbidity
-Question long-term poor nutrition with albumin
#S/p septic shock
-Has been titrated off Levophed
-Monitor vital signs off of vasopressors
-MAP goal >65 mmHg
#Acute kidney injury
-Suspect septic ATN versus prerenal insult
-Resolved
#Anxiety
-Ativan as needed
#GERD
-Continue PPI
#Anxiety/depression
-Continue SSRI
#ADHD
-Hold Adderall
DVT prophylaxis: subcu Lovenox
CODE STATUS: Full code
Diet: Regular
Family updated 01/05/2025 at bedside
Anticipated Discharge: > 48 hours
Subjective/Interval History
-
Date of Service: January 06, 2025
Seen and examined at the bedside. No acute events reported overnight. AFVSS as of this morning on 4 L oxygen
States that he is feeling better with easier breathing, less pleuritic chest pain
Denies any new complaints today
Objective Data
-
Labs:
Laboratory Results
01/06/25
07:02
WBC 16.1 H
Hgb 11.5 L
Hct 32.8 L
Plt Count 49 L
Sodium 139
Potassium 3.5
Chloride 102
Carbon Dioxide 28
BUN 28 H
Creatinine 1.0
Glucose 103 H
Calcium 7.7 L
Total Bilirubin 0.9
AST 47
ALT 18
Alkaline Phosphatase 165 H
Vital Signs:
Vital Signs
Temp Pulse Resp BP Pulse Ox
97.9 F 85 18 111/80 96
01/06/25 07:24 01/06/25 07:24 01/06/25 07:24 01/06/25 07:24 01/06/25 10:40
I&O
01/05/25 01/06/25 01/07/25
06:59 06:59 06:59
Intake Total 4600 / 4750 1924 / 1924
Output Total 1350 / 1350 3350 / 3350
Balance 3250 / 3400 -1425 / -1425
Review of Systems
-
History Source: Patient
All other systems: Reviewed and negative
Physical Exam
-
General: Well Developed, No Apparent Distress, Comfortable and Other (Thin male)
HEENT: Normocephalic, Atraumatic, Moist Mucous Membranes, Anicteric and Oxygen
Respiratory: Clear to Auscultation and Non Labored Respirations; Negative Accessory Resp Muscle Use
Cardiac: Regular Rhythm and S1/S2; Negative Murmur, Rub or Gallop
GI: Soft, Nontender, Nondistended and Normal Bowel Sounds
Musculoskeletal: No Clubbing, No Cyanosis and No Edema
Skin: Warm, Dry and Normal Turgor; Negative Rash
Neuro: AO x 3 and Nonfocal/Grossly Intact
Psych: Calm
Data Reviewed
-
Labs: Labs Reviewed by me and Discussed with Patient
[2025-01-06] MEDS: FLUSH (NSS) 1 FLUSH IV ×2 (11:48→11:50)
[2025-01-06] MEDS: DECADRON 4 MG IV ×2 (11:50→23:27)
[2025-01-06] MEDS: STERILE WATER FOR INJECTION 20 ML IV (11:50)
[2025-01-06] MEDS: ROCEPHIN 2000 MG IV (11:50)
[2025-01-06 12:29] LABS: Glucose - Point of Care 99 mg/dl (70-99)
[2025-01-06] MEDS: ProAIR HFA INHALER 2 PUFF INH (12:36)
--- NOTE | 2025-01-06 13:01 | W.PN.UPDATE ---
Addendum entered and electronically signed by Gennaro Sarkar DO 01/06/25 16:38:
Spoke with [facility] to re-initiate transfer at family's request. Waiting for call back
Addendum entered and electronically signed by Gennaro Sarkar DO 01/06/25 14:19:
Transfer to IMU, not ICU
Original Note:
Update Note
Progress Note Update
Was notified by nursing that [employer] was called on patient near 1245 today. Patient desaturated to the low 80s and required escalation to 15 L supplemental oxygen. Family hysterical that patient was transferred out of the ICU, despite only requiring 4
L supplemental oxygen at the time.
I was immediately available at the bedside and examined the patient. Complained of pleuritic chest pain which is worsening. SpO2 93% at time of my evaluation. EKG already performed, showed unchanged left bundle branch block with no any other
acute ischemic findings.
Ordering chest x-ray, CT PE, echocardiogram, stat ABG, CBC, BMP, lactate, troponin for now.
Updated pulmonology who is to see patient today
Upgrade back to ICU for now
[2025-01-06 13:17] LABS: Hematocrit 36.6 % (39.0-52.0); Hemoglobin 13.2 g/dL (13.0-18.0); Lactic Acid 1.4 mmol/L (0.7-2.0); Mean Corp Hgb Conc. 36.1 g/dL (33.0-37.0); Mean Corpuscular Hgb 30.6 pg (27.0-31.0); Mean Corpuscular Volume 84.9 fL (80.0-94.0); Red Blood Cell Count 4.31 10^6/uL (4.70-6.10); Red Cell Dist. Width 12.7 % (11.5-14.5); White Blood Cell Count 23.1 10^3/uL (4.8-10.8)
[2025-01-06 13:24] LABS: Blood Urea Nitrogen 30 mg/dl (9-20); Carbon Dioxide 28 mmol/L (22-30); Chloride 103 mmol/L (98-107); Estimated Creatinine Clearance 105 ml/min; Glucose 120 mg/dl (70-99); Magnesium 2.3 mg/dl (1.6-2.3); Potassium 3.9 mmol/L (3.5-5.1); Sodium 138 mmol/L (135-145); eGFR > 60.00
[2025-01-06 13:25] LABS: D-Dimer 3.51 ug/mlFEU (0.00-0.50)
[2025-01-06 13:36] LABS: Troponin I < 0.012 ng/ml
--- NOTE | 2025-01-06 13:46 | RR ---
A Rapid Response was called on this patient, please see Rapid Response form.
[2025-01-06 14:04] LABS: Platelet Count 40 10^3/uL (130-400)
[2025-01-06 14:10] LABS: % Immature Granulocytes 9.6 % (0-0.5); % Lymphocytes 2.7 % (20.5-51.1); % Monocytes 3.5 % (1.7-9.3); % Neutrophils 84.2 % (42.2-75.2); Absolute Immature Granulocytes 2.2 10^3/uL (0-0.05); Absolute Lymphocytes 0.6 10^3/uL (1.2-3.4); Absolute Monocytes 0.8 10^3/uL (0.1-0.6); Absolute Neutrophils 19.5 10^3/uL (1.4-6.5); Nucleated Red Blood Cells % 0.1 % (-)
--- NOTE | 2025-01-06 14:41 | W.PN.UPDATE ---
Update Note
Progress Note Update
Update:
Notified by care team that family is upset with change in status, now on 15L midflow. This AM was stable on 4L.
CT showing bibasilar infiltrates but this is similar to his AM CXR 01/06/25 and CXR 01/05/25
He has not been compliant with mucus clearance devices, encouraged by RN at bedside during [place] [employer] and coughed up sputum
IS effort <500mL
Was 92-93% on 15L, placed on HFNC by RT, ABG pending
SUPERVISOR SCOURING PADS involved due to aggressive family demands wanting patient to go to ICU
Transfer to IMU would be appropriate
They have requested transfer to [place] again, notified care team
[2025-01-06 14:55] LABS: B.E. 4.6 mmol/L; HCO3 28.3 mmol/L (21-28); PCO2 38 mmHg (35-48); PO2 107 mmHg (83-108); pH 7.48 (7.35-7.45)
--- NOTE | 2025-01-06 15:22 | PTCARENOTE ---
Patient arrived to IMU. Patient is AOx3. Patient is anxious. HFNC with SpO2 97-100%. Patient has MURPHY, is tachypneic, and is shallow breathing. Weak nonproductive cough. ABG completed by RT at bedside. NSR with BBB and first degree on monitor.
Patients family at bedside. Call marroquin within reach, bed in lowest position, and bed of wheels locked.
--- NOTE | 2025-01-06 15:43 | W.PN.ID1 ---
Date of Service
Date of Service: January 06, 2025
Today's Communication
Continue antibiotics.
Assessment / Plan
Clinical sepsis
Influenza A infection (severe)
Strep pneumo pneumonia with bacteremia
Neutropenia; likely secondary to sepsis
-Now with leukocytosis
ERIC
- improved
Hypoxemic respiratory failure; on high flow O2
Thrombocytopenia
Lactic acidosis
Recommendations:
Continue with Tamiflu.
Continue ceftriaxone 2 gm q24 hours.
Continue Azithromycin to complete a 5-day course.
Monitor white count for continued improvement.
Trend temperature curve
Monitor respiratory status closely.
Continue with supportive measures.
����������������������������������������������������������
Chief Complaint
-: Pneumonia, Bacteremia and Other (Influenza)
Subjective / Review of Systems
Patient seen and examined. Chart reviewed. Patient transferred to telemetry, although developed a low pulse ox, and has been transferred back to IMU. Currently on high flow O2, although being weaned at this time. Breathing comfortable. Sputum
produced.
Vital Signs / Physical Exam
Vital Signs
Vital Signs
Temp Pulse Resp BP Pulse Ox
98.0 F 85 23 135/94 98
01/06/25 14:39 01/06/25 15:30 01/06/25 15:30 01/06/25 14:37 01/06/25 15:31
Physical Exam
Constitutional: Comfortable, Acutely Ill and Non-toxic
Head: Normocephalic
Eyes: Pupils Equal, Pupils Round, No Conjunctival Hemorrhage and Sclera Anicteric
Cardiovascular: S1/S2; Negative S3/S4
Pulmonary: Coarse and Non Labored; Negative Wheezes
Gastrointestinal: Soft, Non Tender and Non Distended
Neurological: Awake and Alert
Psychological: Calm
Objective Data
Lab Data
Lab Results
01/06/25 12:53
01/06/25 12:53
PT 15.8 Sec (11.4-14.6) H 01/03/25 14:04
INR 1.23 01/03/25 14:04
APTT 47.0 Sec (23.4-35.0) H 01/03/25 14:04
Estimated Creat Clear 105 ml/min 01/06/25 12:53
Lactic Acid 1.4 mmol/L (0.7-2.0) 01/06/25 12:53
Total Bilirubin 0.9 mg/dl (0.2-1.3) 01/06/25 07:02
AST 47 U/L (17-59) 01/06/25 07:02
ALT 18 U/L (0-50) 01/06/25 07:02
Alkaline Phosphatase 165 U/L (38-126) H 01/06/25 07:02
Most recent labs reviewed.
Micro Results:
01/03/25 14:24 Blood Culture - Preliminary
Blood/Venous Streptococcus pneumoniae
Gram Stain - Preliminary
01/03/25 14:24 Blood Culture - Preliminary
Blood/Venous Streptococcus pneumoniae
Gram Stain - Preliminary
01/04/25 01:21 Urine Culture - Final
Urine NO GROWTH
01/04/25 01:21 Legionella Urinary Antigen - Final
Urine Negative for Legionella pneumophila Serogroup 1 antigen.
A negative result does not rule out the possiblity of
Legionella infection due to other serogroups or species of
Legionella. Clinical correlation is recommended.
Streptococcus pneumoniae Antigen (M - Final
Positive for Strep pneumo Ag
01/03/25 14:04 Influenza Types A & B (STEVE) - Final
Nasal Swab Influenza A Positive, NAAT
Imaging:
01/05/2025 CXR (portable): There is been significant worsening of extensive bilateral pneumonia and in her development of bilateral pleural effusions since prior study.
01/03/2025 CXR (portable): Interstitial and airspace opacity is demonstrated in the infrahilar region bilaterally, extending into the lower lobes, left greater than right, consistent with pneumonia. No radiographically demonstrable pleural effusion.
No pneumothorax. No CHF. Please see full dictation for additional detail. Film personally viewed.
[2025-01-06] MEDS: LOVENOX 40 MG SC (17:48)
[2025-01-06] MEDS: NSS (PRESERVATIVE FREE) 0.25 ML IV (19:22)
[2025-01-06] MEDS: ATIVAN 0.5 MG IV (19:23)
[2025-01-06] MEDS: TYLENOL 1000 MG PO (21:27)
[2025-01-06] MEDS: LEXAPRO 20 MG PO (21:27)
--- NOTE | 2025-01-06 23:53 | PTCARENOTE ---
Spoke with transfer center and gave an update on patient, no bed available.
Patient resting in bed, in no apparent distress. , Tanya, at bedside. HFNC 50L/85%. Sp02 99%, Respirations shallow 20-30s. NSR w/ BBB on tele. Pt appears fatigued. Did not want to brush teeth or get washed at bedside. Did not eat dinner.
Ensure given and on tray table. Pt turning self while in bed. Call marroquin and tray table within reach. staying the night. Droplet precautions in place.
[2025-01-07] VITALS (15 sets, daily range): BP systolic 110–126; BP diastolic 75–95; PULSE 82; O2SAT 99; BMI 21.0
--- NOTE | 2025-01-07 04:02 | PTCARENOTE ---
Addendum entered by Harsh Smith RN 01/07/25 04:09:
HFNC 50L/50%
Original Note:
Patient sat on edge of bed to void. Sp02 dropped to 83%. Respirations 40-50s. at bedside assisting with urinal. Patient laid back in bed and Sp02 recovered to mid 90s after several minutes. Respirations 28-30. Emotional support given. Call marroquin
and tray table within reach.
[2025-01-07 04:07] LABS: Hemoglobin 12.2 g/dL (13.0-18.0); Mean Corp Hgb Conc. 34.9 g/dL (33.0-37.0); Mean Corpuscular Hgb 30.5 pg (27.0-31.0); Mean Corpuscular Volume 87.5 fL (80.0-94.0); Mean Platelet Volume 10.9 fL (7.4-10.4); Platelet Count 40 10^3/uL (130-400); Red Cell Dist. Width 12.9 % (11.5-14.5); White Blood Cell Count 23.5 10^3/uL (4.8-10.8)
[2025-01-07 04:23] LABS: Blood Urea Nitrogen 31 mg/dl (9-20); Calcium 7.9 mg/dl (8.4-10.2); Carbon Dioxide 29 mmol/L (22-30); Chloride 100 mmol/L (98-107); Estimated Creatinine Clearance 102 ml/min; Glucose 104 mg/dl (70-99); Iron 44 ug/dl (49-181); Potassium 3.8 mmol/L (3.5-5.1); Sodium 137 mmol/L (135-145); eGFR > 60.00
[2025-01-07 04:32] LABS: Percent Saturation 23 % (20-50); Total Iron Binding Capacity 188 ug/dl (261-462)
--- NOTE | 2025-01-07 06:39 | DOWNTIME ---
There was a Service Seeking Client Eyeglass Maker Downtime on 01/07/2025 from 0100 to 01/07/2024 at 0235 . Downtime documentation of patient's care, including medication administrations, has been reconciled in the electronic record per guidelines. Refer to the
patient's paper chart under the miscellaneous tab to see printed paper medication records and downtime forms.
--- NOTE | 2025-01-07 07:15 | PTCARENOTE ---
Addendum entered by Harsh Smith RN 01/07/25 07:22:
Dr. Sarkar notified by oncoming RN- Vinh.
Original Note:
At change of shift patient sat at edge of bed to brush his teeth, Sp02 decreased to 79-83%. Pt placed back in bed. Pt shaking with anxiety, at bedside and asking about Adderall(2) pt takes at home. NRB placed, Sp02 increased to 89-90%. RT made
aware and at bedside. HFNC w/ NRB on at this time. Pt verbalizing his anxiety. Call marroquin within reach. Pt and thankful.
[2025-01-07] MEDS: PROTONIX 20 MG PO (07:47)
[2025-01-07] MEDS: ADDERALL PO (07:47)
[2025-01-07] MEDS: TAMIFLU 75 MG PO ×2 (07:47→22:32)
[2025-01-07] MEDS: ZITHROMAX 500 MG PO (07:47)
[2025-01-07] MEDS: ADDERALL 15 MG PO ×2 (07:57→16:41)
--- NOTE | 2025-01-07 07:58 | W.PN.ONC2 ---
Today's Communication / Plan
-
WBC count improved.
Remains thrombocytopenic without bleeding but suspect this will also spontaneously improve as more time passes.
Severe hematologic issues are reactive to bone marrow response to severe infection. Everything should be self-limiting.
Continue to monitor CBC daily while inpatient. Continue folic acid supplementation.
Impression
Impression
- neutropenia -resolved
- thrombocytopenia. 4T score 1-2, low probability <5% HIT
- respiratory failure
- influenzae A on Tamiflu
- strep pneumonia bacteremia
- Septic shock
- folate deficiency
Plan
Plan
- pt presenting in septic shock in the setting of influenzae and strep pneumoniae infection. He was requiring pressor support, hi flow O2 however pressors weaned off and now on 4L NC.
- CBC on admission with moderate neutropenia w/ ANC 700 and thrombocytopenia w/ plts 104,000. I suspect cytopenias are in the setting of acute illness. no prior for comparison. neutropenia resolved today. Suspect platelets will improve. would hold
off on additional hematology work-up unless counts do not continue to improve with tx of infection.
- infection management per primary team
- CBC daily. transfuse for plts < 20K with active infection, fevers, hgb < 7.0 g/dl.
- neutropenic fevers. neutropenia resolved, now with leukocytosis in setting of infection and steroids
-started folic acid supplement 01/06, continue folic acid 1mg daily at discharge. Pt should have repeat folic acid level in 12 weeks with PCP.
Subjective/Objective
Chief Complaint
ACS Heme Onc F/U
Subjective
No bleeding. Remains SOB on high flow O2 and NRB mask
Vital Signs:
Vital Signs
Temp Pulse Resp BP Pulse Ox
97.9 F 58 36 124/87 91
01/07/25 03:42 01/07/25 07:15 01/07/25 07:15 01/07/25 06:00 01/07/25 07:19
Lab Results:
Laboratory Data
WBC 23.5 10^3/uL (4.8-10.8) H 01/07/25 03:46
Hgb 12.2 g/dL (13.0-18.0) L 01/07/25 03:46
Plt Count 40 10^3/uL (130-400) L 01/07/25 03:46
PT 15.8 Sec (11.4-14.6) H 01/03/25 14:04
INR 1.23 01/03/25 14:04
APTT 47.0 Sec (23.4-35.0) H 01/03/25 14:04
eGFR > 60.00 01/07/25 03:46
Physical Exam
Cardiology: S1 and S2
Pulmonary: Rales
GI: Soft
Extremities: No C/C/E
[2025-01-07 08:35] LABS: % Immature Granulocytes 7.1 % (0-0.5); % Monocytes 3.5 % (1.7-9.3); % Neutrophils 84.4 % (42.2-75.2); Absolute Immature Granulocytes 1.7 10^3/uL (0-0.05); Absolute Lymphocytes 1.2 10^3/uL (1.2-3.4); Absolute Monocytes 0.8 10^3/uL (0.1-0.6); Absolute Neutrophils 19.8 10^3/uL (1.4-6.5); Nucleated Red Blood Cells % 0.1 % (-)
[2025-01-07] MEDS: SODIUM CHLORIDE 3% FOR INHALATION 1 VIAL INH ×2 (09:00→20:00)
[2025-01-07] MEDS: MORPHINE SULFATE 1 MG IV ×2 (09:08→22:37)
[2025-01-07] MEDS: FOLVITE 50.2 MG IV (09:11)
[2025-01-07] MEDS: MUCINEX 1200 MG PO ×2 (09:28→22:32)
--- NOTE | 2025-01-07 09:42 | PTCARENOTE ---
Pt now OOB for 10 mins feet up on HF O2.
--- NOTE | 2025-01-07 10:22 | PTCARENOTE ---
Pt parents at bedside demanding to do more pare=nts and pt told he is maxed out on O2 and given all meds . Pt very agitated and laughed when I told him the next step is a vent . I told him it was not funny and arguing with me isn't helping .
Trying to get him to conserve energy.
--- NOTE | 2025-01-07 10:25 | W.PN.PUL.V3 ---
Today's Communication / Plan
-
Supplemental oxygen-attempt to wean
Increase activity
Encourage mucus clearing devices
Follow radiographically on occasion
Updated family members and primary team
Assessment
-
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
Sepsis with shock unresponsive to fluids requiring pressors
Iwfmnxexx-ldvfeigyv-xewboghb-strep pneumonia suspected
Influenza A
Bacteremia-suspect streptococcal
Aochmlvvmb-hqjnammq-piwhmna related to infection
Thrombocytopenia
Lactic acidosis
ERIC
Hypocalcemia
Conditions present prior to admission:
Depression/anxiety
GERD
Plan
Respiratory status still somewhat tenuous
Continue supplemental oxygen as needed- weaned from high flow to currently on 4 L--now back on high flow oxygen and intermittent nonrebreather
Incentive spirometry-encouraged
Aspiration precautions..
Mucolytic's-Mucinex 1200 mg twice daily
Flutter encouraged
Vest therapy initiated
DuoNebs as well as saline nebulizers continued to help break up mucus
Out of bed in chair encouraged.
Chest x-ray 01/07/2025-stable extensive bilateral pneumonia worse on the right than the left
Cultures reviewed--presumed strep PNA
Influenza A+, Tamiflu continues
Sputum culture-pending/unable to produce
Blood culture 12/219-bbevobcv-Cdqv-positive cocci in pairs and chains-streptococcal pneumonia
Urine Legionella-negative
Urine strep pneumonia antigen-positive
Empiric tajckpgvcbv-twzbozrsiwz-agqgdjivy dose and azithromycin
1 dose of vancomycin also provided
ID following-correspondence reviewed
Echocardiogram 01/06/2025-EF 50-55%,, normal right ventricular size and function, no valvular disease
Monitor leukopenia and thrombocytopenia-wbc's now 23,000, platelets 40,000
Neutropenic precautions, discontinued
Hematology evaluation ongoing-correspondence fmlfgiqf-avnv-imwmbmbu bone marrow abnormalities
Monitor renal function-now normalized
DVT prophylaxis-mechanical and on Lovenox-monitor closely with thrombocytopenia
Nutrition
Increase activity/ Eventual physical therapy..
Dr. York reviewed with and patient's father at the bedside 01/07/2025 as well as reviewed with hospitalist, nursing, respiratory therapy
The family had requested transfer as soon as he was admitted-Dr. York and hospitalist spoke to [facility] and patient was placed into que-nonurgent as [facility] felt they could not offer anything that was not being offered here-family subsequently requested
discontinuation and thus the patient was not transferred as he was improving-subsequently family again asked for transfer-hospitalist contacted [facility]-not appropriate for transfer
Diagnostic Data:
Chest x-ray 01/03/2025-bibasilar pneumonia left greater than right
Subjective Data
-
Date of Service:
Date of Service: January 07, 2025
Chief Complaint: Pulmonary Follow Up and Dyspnea Follow Up
Subjective:
Respiratory status still somewhat tenuous, easily desaturates, anxiety playing a role as well, this morning no complaints of shortness of breath at rest, difficulties mobilizing secretions, no chest pain or abdominal pain, states that he has
'scratchy throat' if he produces mucus
Review of Systems
General: Other (Per HPI)
Objective Data
Data Reviewed
Vital Signs / I&O:
Vital Signs
Temp Pulse Resp BP Pulse Ox
98.3 F 86 51 122/89 83
01/07/25 07:10 01/07/25 09:45 01/07/25 09:45 01/07/25 08:00 01/07/25 09:45
Intake and Output
01/06/25 01/07/25 01/08/25
06:59 06:59 06:59
Intake Total 1924 / 192
Output Total 3350 / 3350 600 / 600 400 / 400
Balance -1425 / -1425 -600 / -600 -400 / -400
SaO2: 83
Nasal Cannula flow liters per minute: 55
Physical Exam
General: Respiratory Distress (n) and Comfortable
HEENT: Normocephalic and Anicteric
Cardiovascular: Regular Rhythm
Respiratory: Crackles ( basilar), Rhonchi ( expiratory), Non-Labored Respirations, Accessory Resp Muscle Use (n) and Stridor (n)
GI: Soft, Non Distended and Non Tender
Neurology: Awake, Alert and No Motor Deficits
Skin: Warm, Good Color, Cyanosis (n) and Jaundice (n)
Labs/Micro/Reports
Lab Data
01/07/25 03:46
01/07/25 03:46
Laboratory Results
01/06/25
14:42
pH 7.48 H
pCO2 38
pO2 107
HCO3 28.3 H
O2 Delivery Level
Microbiology
01/03/25 14:24 Blood/Venous Blood Culture - Final
Streptococcus pneumoniae
01/03/25 14:24 Blood/Venous Gram Stain - Final
01/03/25 14:24 Blood/Venous Blood Culture - Final
Streptococcus pneumoniae
01/03/25 14:24 Blood/Venous Gram Stain - Final
01/04/25 01:21 Urine Urine Culture - Final
NO GROWTH
01/04/25 01:21 Urine Legionella Urinary Antigen - Final
Negative for Legionella pneumophila Serogroup 1 antigen.
A negative result does not rule out the possiblity of
Legionella infection due to other serogroups or species of
Legionella. Clinical correlation is recommended.
01/04/25 01:21 Urine Streptococcus pneumoniae Antigen (M - Final
Positive for Strep pneumo Ag
[2025-01-07] MEDS: ATIVAN 0.5 MG IV ×2 (10:53→16:49)
--- NOTE | 2025-01-07 10:56 | W.PN.HOSP.TC ---
Today's Communication/Plan
-
Continue IV antibiotics and steroid
Continue Tamiflu regimen (1 more day)
Morphine for pleuritic chest pain
Low-dose Ativan for anxiety
Pulmonary toileting
SpO2 goal >90%
Assessment / Plan
Assessment / Plan
#Acute hypoxic respiratory failure
#Sepsis with strep pneumo bacteremia
#Severe influenza A infection
-Likely postviral/superimposed bacterial pneumonia with S. pneumoniae; (+) strep Ag
-Has required high flow oxygen while here, up to 50 L this via high flow NC as of this morning
-Was started on Tamiflu course, ceftriaxone and azithromycin; also received a dose of vancomycin
-Chest x-ray as of 01/05 shows worsening right-sided consolidation, b/l effusions
-Spoke with ICU about starting steroid which was ordered for severe pneumonia
-S/p Vancomycin course; remains on high flow nasal cannula as of 01/07
Plan
-Continue IV ceftriaxone and azithromycin
-Continue with dexamethasone IV 4 mg every 12 hour
-Continue with pulmonary toileting, chest physiotherapy
-Continue with Lasix IV PRN for pulmonary edema
-Start Ativan IV 0.5 mg as needed for anxiety
-Started morphine IV 1 mg as needed for pleuritic pain
-Trend CBC, temperature curve, BMP
-SpO2 goal >90%
#Anxiety
-Has significant anxiety about his condition, being away from his home
-Suspect that this is interfering with his capacity to take deep breaths
-Spoke with pulmonology and ID, starting low-dose Ativan as above
#Leukocytosis
-Likely secondary to demargination from steroid
-Was leukopenic/neutropenic prior
-Trend CBC on above antibiotic course
#Profound neutropenia
#Thrombocytopenia
#Multifactorial pancytopenia
#Folate deficiency
-Suspect that this is consumptive process with severe infection
-No known underlying bone marrow disorders or vitamin deficiencies
-Start IV folate daily, plan for oral after
-Educated patient on proper diet, encouraged a banana daily
#Hypoalbuminemia
-Albumin level only 2.2
-May be related to illness, however patient is young and without significant comorbidity
-Question long-term poor nutrition with albumin
#S/p septic shock
-Has been titrated off Levophed
-Monitor vital signs off of vasopressors
-MAP goal >65 mmHg
#Acute kidney injury
-Suspect septic ATN versus prerenal insult
-Resolved
#Anxiety
-Ativan as needed
#GERD
-Continue PPI
#Anxiety/depression
-Continue SSRI
#ADHD
-Resumed Adderall
DVT prophylaxis: subcu Lovenox
CODE STATUS: Full code
Diet: Regular
Family updated 01/07/2025 at bedside
Discussed case with infectious disease and pulmonology
Anticipated Discharge: > 48 hours
Subjective/Interval History
-
Date of Service: January 07, 2025
Seen and examined at the bedside. No acute events since yesterday afternoon (see SALES [employer]PERATIONS [employer]AD note). Requiring 55 L high flow O2 with SpO2 90 to 94%, otherwise hemodynamically stable and afebrile
Complains of anxiety and restlessness, concerns of being away from his and kids as well as the illness that he has here
He denies any new complaints. Still has pleuritic chest pain
Objective Data
-
Labs:
Laboratory Results
01/07/25
03:46
WBC 23.5 H
Hgb 12.2 L
Hct 35.0 L
Plt Count 40 L
Sodium 137
Potassium 3.8
Chloride 100
Carbon Dioxide 29
BUN 31 H
Creatinine 0.8
Glucose 104 H
Calcium 7.9 L
Vital Signs:
Vital Signs
Temp Pulse Resp BP Pulse Ox
98.3 F 86 51 122/89 83
01/07/25 07:10 01/07/25 09:45 01/07/25 09:45 01/07/25 08:00 01/07/25 10:25
I&O
01/06/25 01/07/25 01/08/25
06:59 06:59 06:59
Intake Total 1924 / 1924
Output Total 3350 / 3350 600 / 600 400 / 400
Balance -1425 / -1425 -600 / -600 -400 / -400
Review of Systems
-
History Source: Patient
All other systems: Reviewed and negative
Physical Exam
-
General: Well Developed, No Apparent Distress and Other (Thin male)
HEENT: Normocephalic, Atraumatic and Moist Mucous Membranes
Respiratory: Rhonchi (exp), Crackles (bases) and Non Labored Respirations; Negative Wheezes or Accessory Resp Muscle Use
Cardiac: Regular Rhythm and S1/S2; Negative Murmur, Rub or Gallop
GI: Soft, Nontender, Nondistended and Normal Bowel Sounds
Musculoskeletal: No Clubbing, No Cyanosis and No Edema
Skin: Warm, Dry and Normal Turgor; Negative Rash
Neuro: AO x 3, Nonfocal/Grossly Intact and Other (Restless legs)
Psych: Anxious
Data Reviewed
-
Labs: Labs Reviewed by me and Discussed with Patient
--- NOTE | 2025-01-07 11:26 | W.PN.ID1 ---
Date of Service
Date of Service: January 07, 2025
Today's Communication
Continue antibiotics.
Assessment / Plan
Clinical sepsis
Influenza A infection (severe)
Strep pneumo pneumonia with bacteremia
Leukocytosis
Recent ERIC
- improved
Hypoxemic respiratory failure; on high flow O2
Thrombocytopenia
Lactic acidosis
Recommendations:
Continue with Tamiflu to complete a 5-day course.
Continue ceftriaxone 2 gm q24 hours.
Completing a 5-day course of Azithromycin today.
Monitor white count for continued improvement; may have plateaued today.
Trend temperature curve
Monitor respiratory status closely.
Continue with supportive measures.
����������������������������������������������������������
Chief Complaint
-: Pneumonia, Bacteremia and Other (Influenza)
Subjective / Review of Systems
Patient seen and examined. Reports episodes of significant shortness of breath overnight. Currently has Rinvoq developed to high flow O2 with nonrebreather.
Review of Systems: No Fever
Vital Signs / Physical Exam
Vital Signs
Vital Signs
Temp Pulse Resp BP Pulse Ox
98.3 F 86 51 122/89 83
01/07/25 07:10 01/07/25 09:45 01/07/25 09:45 01/07/25 08:00 01/07/25 10:25
Physical Exam
Constitutional: Acutely Ill and Non-toxic
Head: Normocephalic
Eyes: Sclera Anicteric
Cardiovascular: Regular Rate and S1/S2; Negative S3/S4
Pulmonary: Rhonchi, Coarse and Other (Mildly labored.)
Gastrointestinal: Soft, Non Tender and Non Distended
Neurological: Awake and Alert
Psychological: Calm and Other (Intermittently anxious)
Objective Data
Lab Data
Lab Results
01/07/25 03:46
01/07/25 03:46
PT 15.8 Sec (11.4-14.6) H 01/03/25 14:04
INR 1.23 01/03/25 14:04
APTT 47.0 Sec (23.4-35.0) H 01/03/25 14:04
Estimated Creat Clear 102 ml/min 01/07/25 03:46
Lactic Acid 1.4 mmol/L (0.7-2.0) 01/06/25 12:53
Total Bilirubin 0.9 mg/dl (0.2-1.3) 01/06/25 07:02
AST 47 U/L (17-59) 01/06/25 07:02
ALT 18 U/L (0-50) 01/06/25 07:02
Alkaline Phosphatase 165 U/L (38-126) H 01/06/25 07:02
Most recent labs reviewed.
Micro Results:
01/03/25 14:24 Blood Culture - Final
Blood/Venous Streptococcus pneumoniae
Gram Stain - Final
01/03/25 14:24 Blood Culture - Final
Blood/Venous Streptococcus pneumoniae
Gram Stain - Final
01/06/25 18:45 Respiratory Culture - Pending
Sputum Gram Stain - Pending
01/04/25 01:21 Urine Culture - Final
Urine NO GROWTH
01/04/25 01:21 Legionella Urinary Antigen - Final
Urine Negative for Legionella pneumophila Serogroup 1 antigen.
A negative result does not rule out the possiblity of
Legionella infection due to other serogroups or species of
Legionella. Clinical correlation is recommended.
Streptococcus pneumoniae Antigen (M - Final
Positive for Strep pneumo Ag
01/03/25 14:04 Influenza Types A & B (STEVE) - Final
Nasal Swab Influenza A Positive, NAAT
Blood Culture Final 01/07/25-52
Streptococcus pneumoniae
Organism 1 Streptococcus pneumoniae
1. Streptococcus pneumoniae
M.I.C. RX
--------- ---
Azithromycin <=0.5 S
Ceftriaxone <=0.25 S
Meningitis:
<=0.5 Susceptible
1 Intermediate
>=2 Resistant
Non-meningitis:
<=1 Susceptible
2 Intermediate
>=4 Resistant
Clindamycin <=0.06 S
Levofloxacin 1 I
Penicillin G <=0.03 S
Meningitis:
<=0.06 Susceptible
>=0.12 Resistant
Non-meningitis:
<=2 Susceptible
4 Intermediate
>=8 Resistant
Tetracycline <=0.5 S
Trimethoprim/Sulfamethoxazole <=.25/4.7 S
Vancomycin 0.5 S
Imaging:
01/05/2025 CXR (portable): There is been significant worsening of extensive bilateral pneumonia and in her development of bilateral pleural effusions since prior study.
01/03/2025 CXR (portable): Interstitial and airspace opacity is demonstrated in the infrahilar region bilaterally, extending into the lower lobes, left greater than right, consistent with pneumonia. No radiographically demonstrable pleural effusion.
No pneumothorax. No CHF. Please see full dictation for additional detail. Film personally viewed.
Care Review
Plan reviewed with: Physician (Hospitalist)
.

Total time spent today was 53 minutes, which includes preparation for the visit, gathering pertinent data, patient interview and examination, reviewing pertinent studies including laboratory evaluations, microbiology, radiology, hospital records,
specialist consultation, along with counseling and coordination of care.
--- NOTE | 2025-01-07 11:28 | CM ---
Patient with Dx Sepsis with strep pneumo bacteremia, Severe influenza A infection, anxiety. Hi flow O2 w NRB. Receiving IV Abx, IV Steroids, IV MS prn.
Message with Dr Sarkar; patient was declined by [facility] for transfer.
Spoke with nurse Vinh; she is asking for CM not to meet with patient today due to need for energy conservation & calm environment due to his O2 needs. 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
Plan TBD.
--- NOTE | 2025-01-07 11:30 | PTCARENOTE ---
Pt was OOB to chair , saw pt getting out of chair took off HF and resisted having put back on. Hf in place bed alarm on
[2025-01-07] MEDS: DUONEB 3 ML INH ×3 (11:50→20:00)
[2025-01-07] MEDS: DECADRON 4 MG IV (12:00)
[2025-01-07] MEDS: STERILE WATER FOR INJECTION 20 ML IV (12:00)
[2025-01-07] MEDS: ROCEPHIN 2000 MG IV (12:00)
[2025-01-07] MEDS: FLUSH (NSS) IV ×2 (13:45→15:32)
[2025-01-07] MEDS: STERILE WATER FOR INJECTION IV (13:45)
--- NOTE | 2025-01-07 14:33 | PTCARENOTE ---
Reminding pt to use IS and flutter device. Pt looking at phone. No CO at this time.
--- NOTE | 2025-01-07 16:32 | PTCARENOTE ---
Pt OOB in chair, Father states Pt does not know who anyone is. Pt is AAOx3 father now looking for popsicles for pt because his throat is scratchy
--- NOTE | 2025-01-07 18:02 | PTCARENOTE ---
Pt encouraged to use IS and flutter. Pt does well when he is alone. Father brought him a popsicle.
--- NOTE | 2025-01-07 18:25 | PTCARENOTE ---
Pt back in bed very argumenative desating ,told pt to stop talking to conserve energy continues to argue . Father krystina
[2025-01-07] MEDS: LEXAPRO 20 MG PO (22:32)
[2025-01-08] VITALS (12 sets, daily range): BP systolic 109–152; BP diastolic 53–86; BMI 20.9
[2025-01-08] MEDS: DECADRON 4 MG IV ×2 (00:21→12:23)
[2025-01-08] MEDS: ATIVAN 0.5 MG IV ×2 (00:22→10:10)
--- NOTE | 2025-01-08 06:00 | PTCARENOTE ---
Father at bedside until pt fell asleep. Morphine provided per pt request for pleuritic pain when coughing. Pt appears forgetful, not remembering he received morphine earlier in the evening. Patient able to rest for a few hours. Pt set off bed alarm,
found pt sitting at edge of bed without HFNC on, Sp02 86-87%. Pt anxious, hyperventilating and defiant to staff assistance but able to calm down and agreed to get back to bed and place HFNC back on. Pt was getting up to void. PRN Ativan provided per
pt request. Education provided to pt on fall precautions and pressing call marroquin for assistance. Pt thankful for care. NSR/SB w/ BBB & 1st degree AVB. RAC IV removed d/t leaking when flushed. Bed alarm set. Call marroquin and tray table within reach.
HFNC 40L/ 80% Fi02 at 0400. Sp02 >95%. Pt in no apparent distress.
[2025-01-08 06:26] LABS: Blood Urea Nitrogen 24 mg/dl (9-20); Calcium 7.6 mg/dl (8.4-10.2); Carbon Dioxide 32 mmol/L (22-30); Chloride 98 mmol/L (98-107); Estimated Creatinine Clearance 117 ml/min; Glucose 127 mg/dl (70-99); Potassium 3.7 mmol/L (3.5-5.1); Sodium 135 mmol/L (135-145); eGFR > 60.00
[2025-01-08 06:31] LABS: Hemoglobin 10.4 g/dL (13.0-18.0); Mean Corp Hgb Conc. 34.7 g/dL (33.0-37.0); Mean Corpuscular Hgb 30.6 pg (27.0-31.0); Mean Corpuscular Volume 88.2 fL (80.0-94.0); Mean Platelet Volume 11.9 fL (7.4-10.4); Platelet Count 47 10^3/uL (130-400); Red Cell Dist. Width 13.1 % (11.5-14.5); White Blood Cell Count 23.3 10^3/uL (4.8-10.8)
[2025-01-08] MEDS: DUONEB 3 ML INH ×4 (07:08→19:39)
[2025-01-08] MEDS: SODIUM CHLORIDE 3% FOR INHALATION 1 VIAL INH ×2 (07:08→19:39)
[2025-01-08] MEDS: PROTONIX 20 MG PO (08:25)
[2025-01-08] MEDS: MUCINEX 1200 MG PO ×2 (08:25→20:31)
[2025-01-08] MEDS: TAMIFLU 75 MG PO (08:25)
[2025-01-08] MEDS: ZITHROMAX 500 MG PO (08:25)
[2025-01-08] MEDS: ADDERALL 15 MG PO ×2 (08:26→18:01)
[2025-01-08] MEDS: FOLVITE 50.2 MG IV (08:37)
[2025-01-08 09:05] LABS: Absolute Neutrophils -Man Diff 18.6 10^3/uL (1.4-6.5); Band Neutrophils 9 % (0-3); Lymphocytes 5 % (20-51); Monocytes 7 % (2-9); Myelocytes 8 % (-); Segmented Neutrophils 71 % (42-75)
[2025-01-08 09:06] LABS: Normal RBC Morphology Yes; Platelets Checked Yes; Total Cells Counted 100
--- NOTE | 2025-01-08 09:08 | W.PN.PUL3 ---
Today's Communication / Plan
-
Continue high flow nasal cannula
Increase activity as tolerated
Pain control for throat
Abx per ID
DuoNebs, 3% nebulized for pulmonary toilet purposes and Mucinex
Encourage mucus clearing devices
Follow radiographically occasionally
Assessment
-
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
Sepsis - shock state now resolved since 01/04/2025
Multifocal CAP -strep pneumonia suspected
Influenza A
Streptococcal pneumonia bacteremia
Leukocytosis
Thrombocytopenia
Lactic acidosis - now resolved since 01/04/2025
ERIC - now resolved
Hypocalcemia
Conditions present prior to admission:
Depression/anxiety
GERD
Plan
Respiratory status still somewhat tenuous on high flow NC
Currently on HFNC FiO2 85%, 40L/min --> wean down FiO2 as tolerated while keeping flow as high as tolerated to increase delivered PEEP
Incentive spirometry-encouraged q1hr while awake
Aspiration precautions
Mucolytics with Mucinex 1200 mg twice daily
Flutter valve encouraged
Vest therapy initiated
DuoNebs as well as saline nebulizers continued to help break up mucus
Out of bed in chair encouraged.
Chest x-ray 01/07/2025-stable extensive bilateral pneumonia worse on the right than the left
Pain control --> start phenol throat spray and consider lidocaine swallow if pain worsens/persists
Cultures reviewed--strep PNA
Influenza A+, Tamiflu continues
Sputum culture- NGTD from 01/06/2025
Blood cultures x2 from 01/03/2025 has grown Streptococcus pneumonia
Urine Legionella-negative
Urine strep pneumonia antigen-positive
Abx as per ID --> currently on rocephin/zithromax
Echocardiogram 01/06/2025-EF 50-55%,, normal right ventricular size and function, no valvular disease
Trend WBC and platelet count
Transfuse as needed to keep Hb>7, plt>20k
Hematology consulted and recs appreciated
Monitor renal function-now normalized
DVT prophylaxis - SCDS
Nutrition
Increase activity/ Eventual physical therapy
Dr. York reviewed with and patient's father at the bedside 01/07/2025 as well as reviewed with hospitalist, nursing, respiratory therapy
Dr. Nuñez reviewed with and father on 01/08/2025
Previously: The family had requested transfer as soon as he was admitted-Dr. York and hospitalist spoke to [facility] and patient was placed into que-nonurgent as [facility] felt they could not offer anything that was not being offered here-family subsequently
requested discontinuation and thus the patient was not transferred as he was improving-subsequently family again asked for transfer-hospitalist contacted [facility]-not appropriate for transfer
Diagnostic Data:
Chest x-ray 01/03/2025-bibasilar pneumonia left greater than right
Total time spent today was 52 minutes for this encounter. Time includes reviewing laboratory test/imaging results, reviewing pertinent medical records, obtaining and reviewing medical history, performing an appropriate exam, ordering medications,
tests and procedures. Time also includes documentation of this encounter, coordinating patient care and communicating with other healthcare professionals. Total time does not include separately billed tests performed on this date of service.
Subjective Data
-
Date of Service:
Date of Service: January 08, 2025
Chief Complaint: Pulmonary Follow Up and Dyspnea Follow Up
Subjective:
Patient seen and evaluated this morning. Patient's , Tanya, and father, Bienvenido, or both at bedside. All questions were answered. Has some throat pain but denies SOB at rest, fevers or chills. Currently on high flow nasal cannula at 85% FiO2
and 40 L/min. Heart rate 60, BP 113/80 and saturating 94%.
Review of Systems
General: Other (Negative unless mentioned above)
Objective Data
Data Reviewed
Vital Signs / I&O / Oxygen:
Vital Signs
Temp Pulse Resp BP Pulse Ox
98.4 F 60 20 115/76 97
01/08/25 07:54 01/08/25 07:17 01/08/25 07:17 01/08/25 06:00 01/08/25 07:17
Intake and Output
01/07/25 01/08/25 01/09/25
06:59 06:59 06:59
Intake Total 120 / 120
Output Total 600 / 600 1025 / 1025
Balance -600 / -600 -905 / -905
SaO2 97
Nasal Cannula flow liters per 40
minute
Physical Exam
General: Respiratory Distress (n) and Comfortable
HEENT: Normocephalic and Anicteric
Cardiovascular: S1-S2 and Peripheral Edema (negative)
Respiratory: Wheeze (negative), Crackles (Bibasilar), Rhonchi ( expiratory), Non-Labored Respirations, Accessory Resp Muscle Use (n) and Stridor (n)
GI: Soft, Non Distended, Non Tender and Normal Bowel Sounds
Neurology: AO x 3 and Tremors (negative)
Skin: Warm, Dry, Cyanosis (n) and Jaundice (n)
Labs/Micro/Reports
Lab Data
01/08/25 05:43
01/08/25 05:43
Microbiology
01/06/25 18:45 Sputum Gram Stain - Preliminary
01/03/25 14:24 Blood/Venous Blood Culture - Final
Streptococcus pneumoniae
01/03/25 14:24 Blood/Venous Gram Stain - Final
01/03/25 14:24 Blood/Venous Blood Culture - Final
Streptococcus pneumoniae
01/03/25 14:24 Blood/Venous Gram Stain - Final
01/04/25 01:21 Urine Urine Culture - Final
NO GROWTH
[2025-01-08] MEDS: NSS (PRESERVATIVE FREE) 0.125 ML IV (10:11)
--- NOTE | 2025-01-08 10:17 | W.PN.ONC2 ---
Addendum entered and electronically signed by Terry Zimmer DO 01/08/25 13:41:
Patient examined and chart reviewed independently. Agree with the impression and plan as outlined by [employer] below. Hematologic findings likely secondary to acute illness. Monitor for transfusion need. Consider assessment for ITP and phospholipid
antibodies should thrombocytopenia persist persist beyond discontinuation of cephalosporin and recovery of sepsis
Original Note:
Today's Communication / Plan
-
.
Impression
Impression
- neutropenia -resolved
- thrombocytopenia. 4T score 1-2, low probability <5% HIT
- respiratory failure on HF today
- severe influenzae A on Tamiflu
- Strep pneumo pneumonia with bacteremia
- Septic shock
- folate deficiency
Plan
Plan
- pt presenting in septic shock in the setting of influenzae and strep pneumoniae infection. on 40L HF today
- I suspect cytopenias are in the setting of acute illness. no prior for comparison. neutropenia resolved and now with leukocytosis in setting of steroids and infection. Suspect platelets will improve, currently stable 40-50,000. would hold off on
additional hematology work-up unless counts do not continue to improve with tx of infection.
- infection management per primary team
- CBC daily. transfuse for plts < 20K with active infection, fevers, hgb < 7.0 g/dl.
-started folic acid supplement 01/06, continue folic acid 1mg daily at discharge. Pt should have repeat folic acid level in 12 weeks with PCP.
Subjective/Objective
Subjective
afebrile, 40L HF O2
no overt bleeding
Vital Signs:
Vital Signs
Temp Pulse Resp BP Pulse Ox
98.4 F 60 20 115/76 994
01/08/25 07:54 01/08/25 07:17 01/08/25 07:17 01/08/25 06:00 01/08/25 08:12
Lab Results:
Laboratory Data
WBC 23.3 10^3/uL (4.8-10.8) H 01/08/25 05:43
Hgb 10.4 g/dL (13.0-18.0) L 01/08/25 05:43
Plt Count 47 10^3/uL (130-400) L 01/08/25 05:43
PT 15.8 Sec (11.4-14.6) H 01/03/25 14:04
INR 1.23 01/03/25 14:04
APTT 47.0 Sec (23.4-35.0) H 01/03/25 14:04
eGFR > 60.00 01/08/25 05:43
Physical Exam
HEENT: No Jaundice
Cardiology: Normal Sinus Rhythm
GI: Soft
Extremities: Pulses Present; No Edema
--- NOTE | 2025-01-08 10:24 | W.PN.HOSP.TC ---
Today's Communication/Plan
-
Continue antibiotic regimen and steroid
Continue pulmonary toileting
Ativan for anxiety
Low-dose morphine for pleuritic pain
Wean oxygen slowly
Assessment / Plan
Assessment / Plan
#Acute hypoxic respiratory failure
#Sepsis with strep pneumo bacteremia
#Severe influenza A infection
-Likely postviral/superimposed bacterial pneumonia with S. pneumoniae; (+) strep Ag
-Has required high flow oxygen while here, up to 50 L this via high flow NC as of this morning
-Was started on Tamiflu course, ceftriaxone and azithromycin; also received a dose of vancomycin
-Chest x-ray as of 01/05 shows worsening right-sided consolidation, b/l effusions
-Spoke with ICU about starting steroid which was ordered for severe pneumonia
-S/p Vancomycin course; remains on high flow nasal cannula as of 01/07
Plan
-Continue IV ceftriaxone and azithromycin
-Continue with dexamethasone IV 4 mg every 12 hour
-Continue with pulmonary toileting, chest physiotherapy
-Continue Ativan IV 0.5 mg as needed for anxiety
-Continue morphine IV 1 mg as needed for pleuritic pain
-Trend CBC, temperature curve, BMP
-SpO2 goal >90%
#Anxiety
-Has significant anxiety about his condition, being away from his home
-Suspect that this is interfering with his capacity to take deep breaths
-Spoke with pulmonology and ID, starting low-dose Ativan as above
#Leukocytosis
-Likely secondary to demargination from steroid
-Was leukopenic/neutropenic prior
-Trend CBC on above antibiotic course
#Profound neutropenia
#Thrombocytopenia
#Multifactorial pancytopenia
#Folate deficiency
-Suspect that this is consumptive process with severe infection
-No known underlying bone marrow disorders or vitamin deficiencies
-Start IV folate daily, plan for oral after
-Educated patient on proper diet, encouraged a banana daily
#Hypoalbuminemia
-Albumin level only 2.2
-May be related to illness, however patient is young and without significant comorbidity
-Question long-term poor nutrition with albumin
#S/p septic shock
-Has been titrated off Levophed
-Monitor vital signs off of vasopressors
-MAP goal >65 mmHg
#Acute kidney injury
-Suspect septic ATN versus prerenal insult
-Resolved
#Anxiety
-Ativan as needed
#GERD
-Continue PPI
#Anxiety/depression
-Continue SSRI
#ADHD
-Resumed Adderall
DVT prophylaxis: subcu Lovenox
CODE STATUS: Full code
Diet: Regular
Family updated 01/06, 01/07, 01/08 at bedside
Discussed case with infectious disease and pulmonology
Anticipated Discharge: > 48 hours
Subjective/Interval History
-
Date of Service: January 08, 2025
Seen and examined at the bedside. No acute events reported overnight. AFVSS on 40 L high flow NC
He states he feels his breathing is better. Complains of purulent cough, deb brown sputum. Nursing sent me a photo, appears classic deb brown S. pneumoniae sputum
Denies any new complaints as of this morning
Objective Data
-
Labs:
Laboratory Results
01/08/25
05:43
WBC 23.3 H
Hgb 10.4 L
Hct 30.0 L
Plt Count 47 L
Sodium 135
Potassium 3.7
Chloride 98
Carbon Dioxide 32 H
BUN 24 H
Creatinine 0.7
Glucose 127 H
Calcium 7.6 L
Vital Signs:
Vital Signs
Temp Pulse Resp BP Pulse Ox
98.4 F 60 20 115/76 994
01/08/25 07:54 01/08/25 07:17 01/08/25 07:17 01/08/25 06:00 01/08/25 08:12
I&O
01/07/25 01/08/25 01/09/25
06:59 06:59 06:59
Intake Total 120 / 120
Output Total 600 / 600 1025 / 1025
Balance -600 / -600 -905 / -905
Review of Systems
-
History Source: Patient
All other systems: Reviewed and negative
Physical Exam
-
General: Well Developed, No Apparent Distress and Other (Thin male)
HEENT: Normocephalic, Atraumatic and Moist Mucous Membranes
Respiratory: Rhonchi and Non Labored Respirations; Negative Wheezes, Rales, Crackles or Accessory Resp Muscle Use
Cardiac: Regular Rhythm and S1/S2; Negative Murmur, Rub or Gallop
GI: Soft, Nontender, Nondistended and Normal Bowel Sounds
Musculoskeletal: No Clubbing, No Cyanosis and No Edema
Skin: Warm, Dry and Normal Turgor; Negative Rash
Neuro: AO x 3 and Nonfocal/Grossly Intact
Psych: Calm and Anxious
Data Reviewed
-
Labs: Labs Reviewed by me, Discussed with Patient and Discussed with Family
--- NOTE | 2025-01-08 11:35 | W.PN.ID1 ---
Date of Service
Date of Service: January 08, 2025
Today's Communication
Continue antibiotics. See below�
Assessment / Plan
Clinical sepsis
Influenza A infection (severe)
Severe Strep pneumo pneumonia with bacteremia
Leukocytosis
Recent ERIC
- improved
Hypoxemic respiratory failure; on high flow O2
Thrombocytopenia
Lactic acidosis
Recommendations:
Patient has completed a 5-day course of Tamiflu and Azithromycin.
Continue ceftriaxone 2 gm q24 hours (d#6)
Monitor white count for continued improvement; it appears to have plateaued.
Trend temperature curve
Monitor respiratory status closely. Remains on high flow O2 at this time. Wean as tolerated.
Continue with supportive measures.
����������������������������������������������������������
Chief Complaint
-: Pneumonia, Bacteremia and Other (Influenza)
Subjective / Review of Systems
Patient seen and examined. Reports feeling somewhat improved today. Still with cough. He remains on high flow O2, but now off of nonrebreather. Sats in the high 90s to 100.
Review of Systems: No Fever
Vital Signs / Physical Exam
Vital Signs
Vital Signs
Temp Pulse Resp BP Pulse Ox
98.4 F 68 22 115/76 92
01/08/25 07:54 01/08/25 11:10 01/08/25 11:10 01/08/25 06:00 01/08/25 11:11
Physical Exam
Constitutional: No Acute Distress, Comfortable and Non-toxic
Head: Normocephalic
Eyes: Sclera Anicteric
Cardiovascular: Regular Rate and S1/S2; Negative S3/S4
Pulmonary: Rhonchi, Coarse and Non Labored
Gastrointestinal: Soft, Non Tender and Non Distended
Extremities: Negative Edema, Cyanosis or Erythema
Neurological: Awake and Alert
Psychological: Calm
Objective Data
Lab Data
Lab Results
01/08/25 05:43
01/08/25 05:43
PT 15.8 Sec (11.4-14.6) H 01/03/25 14:04
INR 1.23 01/03/25 14:04
APTT 47.0 Sec (23.4-35.0) H 01/03/25 14:04
Estimated Creat Clear 117 ml/min 01/08/25 05:43
Lactic Acid 1.4 mmol/L (0.7-2.0) 01/06/25 12:53
Total Bilirubin 0.9 mg/dl (0.2-1.3) 01/06/25 07:02
AST 47 U/L (17-59) 01/06/25 07:02
ALT 18 U/L (0-50) 01/06/25 07:02
Alkaline Phosphatase 165 U/L (38-126) H 01/06/25 07:02
Most recent labs reviewed.
Micro Results:
01/06/25 18:45 Respiratory Culture - Preliminary
Sputum Gram Stain - Preliminary
01/03/25 14:24 Blood Culture - Final
Blood/Venous Streptococcus pneumoniae
Gram Stain - Final
01/03/25 14:24 Blood Culture - Final
Blood/Venous Streptococcus pneumoniae
Gram Stain - Final
01/04/25 01:21 Urine Culture - Final
Urine NO GROWTH
01/04/25 01:21 Legionella Urinary Antigen - Final
Urine Negative for Legionella pneumophila Serogroup 1 antigen.
A negative result does not rule out the possiblity of
Legionella infection due to other serogroups or species of
Legionella. Clinical correlation is recommended.
Streptococcus pneumoniae Antigen (M - Final
Positive for Strep pneumo Ag
01/03/25 14:04 Influenza Types A & B (STEVE) - Final
Nasal Swab Influenza A Positive, NAAT
Blood Culture Final 01/07/25
Streptococcus pneumoniae
Organism 1 Streptococcus pneumoniae
1. Streptococcus pneumoniae
M.I.C. RX
--------- ---
Azithromycin <=0.5 S
Ceftriaxone <=0.25 S
Meningitis:
<=0.5 Susceptible
1 Intermediate
>=2 Resistant
Non-meningitis:
<=1 Susceptible
2 Intermediate
>=4 Resistant
Clindamycin <=0.06 S
Levofloxacin 1 I
Penicillin G <=0.03 S
Meningitis:
<=0.06 Susceptible
>=0.12 Resistant
Non-meningitis:
<=2 Susceptible
4 Intermediate
>=8 Resistant
Tetracycline <=0.5 S
Trimethoprim/Sulfamethoxazole <=.25/4.7 S
Vancomycin 0.5 S
Imaging:
01/07/2025 CXR (portable): Stable extensive bilateral pneumonia (R >L)
01/05/2025 CXR (portable): There is been significant worsening of extensive bilateral pneumonia and in her development of bilateral pleural effusions since prior study.
01/03/2025 CXR (portable): Interstitial and airspace opacity is demonstrated in the infrahilar region bilaterally, extending into the lower lobes, left greater than right, consistent with pneumonia. No radiographically demonstrable pleural effusion.
No pneumothorax. No CHF. Please see full dictation for additional detail. Film personally viewed.
[2025-01-08] MEDS: FLUSH (NSS) IV ×2 (11:37→12:16)
[2025-01-08] MEDS: STERILE WATER FOR INJECTION 20 ML IV (12:23)
[2025-01-08] MEDS: ROCEPHIN 2000 MG IV (12:23)
[2025-01-08] MEDS: MORPHINE SULFATE 1 MG IV (13:09)
[2025-01-08] MEDS: ATIVAN 1 MG IV ×2 (13:35→21:01)
[2025-01-08] MEDS: NSS (PRESERVATIVE FREE) 0.5 ML IV (13:35)
--- NOTE | 2025-01-08 13:39 | PTCARENOTE ---
Addendum entered by Shavon Richardson 01/08/25 18:08:
Pt resting comfortably at this time. Family in and out. Pt offered pain medication; refused at this time.
Original Note:
Pt very anxious and agitated with care. PRN Ativan administered as ordered, see MAR. Assisted pt OOB. Sats dropped to 85% briefly but recovered. Pt then began with intense panic attack. Pt hyperventilating, states his O2 'isn't right' and pulled off
oxygen. HF replaced and NRB placed on top for comfort. RT paged and to bedside. Pt's visitors hovering over pt, making statements such as 'your levels are bottoming out/ if you don't cough more you won't get better.' Emotional support provided to
pt. Asked family members to attempt to be positive to avoid further anxiety with negative statements. Family member replied 'it doesn't make a difference. We were positive yesterday and he was anxious.' Pt also reporting pleuritic pain, PRN morphine
administered. Family members questioning dosages and state medication doses/frequency is not adequate. Dr Sarkar paged via TT. Additional dose of Ativan ordered, administered- see MAR. Orders adjusted further by Dr. Sarkar. Family remains at bedside.
Pt appears slightly more comfortable at this time.
--- NOTE | 2025-01-08 15:06 | CM ---
Patient with Dx Sepsis with strep pneumo bacteremia, Severe influenza A infection, anxiety. High flow O2. Receiving IV Abx, IV Steroids, Tamiflu, IV Ativan prn, IV MS prn. Per nursing notes; continues to have episodes of anxiety & agitation,
family at bedside, OOB chair yesterday. PT 01/07; likely no needs.
CM continuing to follow.
Plan TBD.
[2025-01-08] MEDS: CHLORASEPTIC/SORE THROAT SPRAY 2 SPRAY PO (18:01)
[2025-01-08] MEDS: MORPHINE SULFATE 1.5 MG IV (20:31)
[2025-01-08] MEDS: LEXAPRO 20 MG PO (20:33)
[2025-01-08] MEDS: CHLORASEPTIC/SORE THROAT SPRAY 1 SPRAY PO (20:42)
[2025-01-08] MEDS: NSS (PRESERVATIVE FREE) 0.25 ML IV (21:00)
[2025-01-09] VITALS (14 sets, daily range): BP systolic 111–145; BP diastolic 73–101; PULSE 102; O2SAT 96; BMI 21.3
[2025-01-09] MEDS: DECADRON 4 MG IV ×2 (00:54→12:06)
[2025-01-09] MEDS: DUONEB 3 ML INH ×4 (05:28→19:35)
[2025-01-09] MEDS: SODIUM CHLORIDE 3% FOR INHALATION 1 VIAL INH ×2 (05:29→19:35)
[2025-01-09 05:46] LABS: Hematocrit 29.9 % (39.0-52.0); Hemoglobin 10.4 g/dL (13.0-18.0); Mean Corp Hgb Conc. 34.8 g/dL (33.0-37.0); Mean Corpuscular Hgb 30.6 pg (27.0-31.0); Mean Corpuscular Volume 87.9 fL (80.0-94.0); Mean Platelet Volume 10.9 fL (7.4-10.4); Platelet Count 67 10^3/uL (130-400); Red Cell Dist. Width 12.7 % (11.5-14.5); White Blood Cell Count 23.2 10^3/uL (4.8-10.8)
[2025-01-09 06:06] LABS: Blood Urea Nitrogen 20 mg/dl (9-20); Calcium 7.7 mg/dl (8.4-10.2); Carbon Dioxide 31 mmol/L (22-30); Chloride 101 mmol/L (98-107); Estimated Creatinine Clearance > 125 ml/min; Glucose 129 mg/dl (70-99); Sodium 134 mmol/L (135-145); eGFR > 60.00
[2025-01-09] MEDS: PROTONIX 20 MG PO (08:13)
[2025-01-09] MEDS: FOLVITE 50.2 MG IV (08:13)
[2025-01-09] MEDS: MUCINEX 1200 MG PO ×2 (08:13→21:25)
[2025-01-09] MEDS: ADDERALL 15 MG PO ×2 (08:14→15:59)
--- NOTE | 2025-01-09 08:34 | W.PN.PUL3 ---
Today's Communication / Plan
-
Continue high flow nasal cannula
Increase activity as tolerated
Pain control for throat with phenol spray
Abx per ID
Change decadron to solu-cortef given his severe CAP
DuoNebs, 3% nebulized for pulmonary toilet purposes and Mucinex
Encourage mucus clearing devices
Follow radiographically occasionally --> check CXR tomorrow
Pulmonary service will continue to follow along
Assessment
-
44-year-old male without significant past medical history presented with shortness of breath, cough, found to have influenza as well as bilateral pneumonia-paper roller consulted for respiratory failure, pneumonia, influenza, and critical care
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
Sepsis - shock state now resolved since 01/04/2025
Multifocal CAP due to Strep pneumonia
Influenza A
Streptococcal pneumonia bacteremia
Leukocytosis
Thrombocytopenia
Lactic acidosis - now resolved since 01/04/2025
ERIC - now resolved
Hypocalcemia
Conditions present prior to admission:
Depression/anxiety
GERD
Plan
Respiratory status still somewhat tenuous on high flow NC
Currently on HFNC FiO2 80%, 40L/min --> wean down FiO2 as tolerated while keeping flow as high as tolerated to increase delivered PEEP
Given his severe CAP, continue with systemic steroids, currently on Decadron 4 mg IV q12hr since 01/05/2025 --> given his continued high O2 requirements I will change to solu-cortef 50mg IV q6hr x 2-3 days then will taper
Incentive spirometry-encouraged q1hr while awake
Aspiration precautions
Mucolytics with Mucinex 1200 mg twice daily
Flutter valve encouraged
Vest therapy initiated
DuoNebs as well as saline nebulizers continued to help break up mucus
Out of bed in chair encouraged.
Chest x-ray 01/07/2025-stable extensive bilateral pneumonia worse on the right than the left
Pain control --> continue phenol throat spray and consider lidocaine swallow if pain worsens/persists
Cultures reviewed--strep PNA
Influenza A+, Tamiflu continues per ID
Blood cultures x2 from 01/03/2025 has grown Streptococcus pneumonia
Sputum culture from 01/06/2025 has grown mold, likely a contaminant
Urine Legionella-negative
Urine strep pneumonia antigen-positive
Abx as per ID --> currently on rocephin s/p zithromax (01/03-01/08/2025)
Echocardiogram 01/06/2025-EF 50-55%,, normal right ventricular size and function, no valvular disease
Trend WBC and platelet count
Transfuse as needed to keep Hb>7, plt>20k
Hematology consulted and recs appreciated
Monitor renal function-now normalized
DVT prophylaxis - LMWH starting tonight
Nutrition
Increase activity/ Eventual physical therapy
Dr. York reviewed with and patient's father at the bedside 01/07/2025 as well as reviewed with hospitalist, nursing, respiratory therapy
Dr. Nuñze reviewed with and father on 01/08/[address] Nuñez reviewed with patient and family on 01/09/2025
Previously: The family had requested transfer as soon as he was admitted-Dr. York and hospitalist spoke to [facility] and patient was placed into que-nonurgent as [facility] felt they could not offer anything that was not being offered here-family subsequently
requested discontinuation and thus the patient was not transferred as he was improving-subsequently family again asked for transfer-hospitalist contacted [facility]-not appropriate for transfer
Pulmonary service will continue to follow along
Diagnostic Data:
Chest x-ray 01/03/2025-bibasilar pneumonia left greater than right
Total time spent today was 58 minutes for this encounter. Time includes reviewing laboratory test/imaging results, reviewing pertinent medical records, obtaining and reviewing medical history, performing an appropriate exam, ordering medications,
tests and procedures. Time also includes documentation of this encounter, coordinating patient care and communicating with other healthcare professionals. Total time does not include separately billed tests performed on this date of service.
Subjective Data
-
Date of Service:
Date of Service: January 09, 2025
Chief Complaint: Pulmonary Follow Up and Dyspnea Follow Up
Subjective:
Patient was seen and evaluated today at bedside. His throat feels much better with the Chloraseptic spray that I ordered yesterday. Family at bedside including his , Tanya. Patient currently on high flow nasal cannula at 80% FiO2, 40 L/min
with saturations of 97%, heart rate 84 and BP 119/94. Patient denies chest pain, VAZQUEZ, nausea, fevers or chills.
Review of Systems
General: Other (Negative unless mentioned above)
Objective Data
Data Reviewed
Vital Signs / I&O / Oxygen:
Vital Signs
Temp Pulse Resp BP Pulse Ox
98.4 F 63 25 124/81 100
01/09/25 07:22 01/09/25 08:00 01/09/25 08:00 01/09/25 08:00 01/09/25 08:00
Intake and Output
01/08/25 01/09/25 01/10/25
06:59 06:59 06:59
Intake Total 120 / 120 100 / 100
Output Total 1025 / 1025 400 / 400
Balance -905 / -905 -400 / -400 100 / 100
SaO2 100
Nasal Cannula flow liters per 40
minute
Physical Exam
General: Respiratory Distress (n), Comfortable, Chills (n) and Sweats (n)
HEENT: Normocephalic and Anicteric
Cardiovascular: S1-S2 and Peripheral Edema (negative)
Respiratory: Wheeze (negative), Crackles (Bibasilar), Rhonchi (Expiratory), Non-Labored Respirations, Accessory Resp Muscle Use (n) and Stridor (n)
GI: Soft, Non Distended, Non Tender and Normal Bowel Sounds
Neurology: AO x 3 and Tremors (negative)
Skin: Warm, Dry, Cyanosis (n) and Jaundice (n)
Labs/Micro/Reports
Lab Data
01/09/25 05:27
01/09/25 05:27
Microbiology
01/06/25 18:45 Sputum Respiratory Culture - Preliminary
01/06/25 18:45 Sputum Gram Stain - Preliminary
01/03/25 14:24 Blood/Venous Blood Culture - Final
Streptococcus pneumoniae
01/03/25 14:24 Blood/Venous Gram Stain - Final
01/03/25 14:24 Blood/Venous Blood Culture - Final
Streptococcus pneumoniae
01/03/25 14:24 Blood/Venous Gram Stain - Final
[2025-01-09 08:42] LABS: Absolute Neutrophils -Man Diff 20.8 10^3/uL (1.4-6.5); Band Neutrophils 4 % (0-3); Lymphocytes 2 % (20-51); Metamyelocytes 6 % (-); Monocytes 1 % (2-9); Myelocytes 1 % (-); Segmented Neutrophils 86 % (42-75)
[2025-01-09 08:43] LABS: Hypersegmented Neutrophil Moderate; Normal RBC Morphology Yes; Platelets Checked YES
[2025-01-09 08:44] LABS: Total Cells Counted 100
--- NOTE | 2025-01-09 09:14 | W.PN.ONC2 ---
Today's Communication / Plan
-
.
Impression
Impression
- neutropenia -resolved
- thrombocytopenia. 4T score 1-2, low probability <5% HIT
- respiratory failure on HF today
- severe influenzae A on Tamiflu
- Strep pneumo pneumonia with bacteremia
- Septic shock
- folate deficiency
Plan
Plan
- pt presenting in septic shock in the setting of influenzae and strep pneumoniae infection. on 40L HF today
- I suspect cytopenias are in the setting of acute illness. no prior for comparison. neutropenia resolved and now with leukocytosis in setting of steroids and infection. Suspect platelets will improve, 67,000 today, would hold off on additional
hematology work-up unless counts do not continue to improve with tx of infection.
- infection management per primary team
- CBC daily. transfuse for plts < 20K with active infection, fevers, hgb < 7.0 g/dl.
-started folic acid supplement 01/06, continue folic acid 1mg daily at discharge. Pt should have repeat folic acid level in 12 weeks with PCP.
Subjective/Objective
Subjective
no new complaints
40L HF O2
Hgb stable >10
plts improved 67,000
denies bleeding
Vital Signs:
Vital Signs
Temp Pulse Resp BP Pulse Ox
98.4 F 63 25 124/81 100
01/09/25 07:22 01/09/25 08:00 01/09/25 08:00 01/09/25 08:00 01/09/25 08:00
Lab Results:
Laboratory Data
WBC 23.2 10^3/uL (4.8-10.8) H 01/09/25 05:27
Hgb 10.4 g/dL (13.0-18.0) L 01/09/25 05:27
Plt Count 67 10^3/uL (130-400) L D 01/09/25 05:27
PT 15.8 Sec (11.4-14.6) H 01/03/25 14:04
INR 1.23 01/03/25 14:04
APTT 47.0 Sec (23.4-35.0) H 01/03/25 14:04
eGFR > 60.00 01/09/25 05:27
Physical Exam
HEENT: No Jaundice
Cardiology: Normal Sinus Rhythm
Pulm on HF, unlabored
GI: Soft
Extremities: Pulses Present; No Edema
--- NOTE | 2025-01-09 09:22 | W.PN.ID1 ---
Date of Service
Date of Service: January 09, 2025
Today's Communication
Given severity of pneumonia I have extended Tamiflu course to 10 days - 3 further days remain
c/w ceftriaxone
Assessment / Plan
Hypoxemic Resp Failure
Influenza A infection (severe)
Severe Strep pneumo pneumonia with bacteremia
Leukocytosis
Recent ERIC
- improved
Hypoxemic respiratory failure; on high flow O2
Thrombocytopenia
Lactic acidosis
Recommendations:
Given severity of pneumonia I have extended Tamiflu course to 10 days - 3 further days remain
Patient has completed a 5-day course of Azithromycin.
Continue ceftriaxone 2 gm q24 hours (d#7) - favor ongoing IV therapy given need for high flow NC
Monitor white count for continued improvement; it appears to have plateaued.
Platelets are somewhat improved today
Monitor respiratory status closely. Remains on high flow O2 at this time. Wean as tolerated.
Continue with supportive measures.
����������������������������������������������������������
Chief Complaint
-: Pneumonia, Bacteremia and Other (Influenza)
Subjective / Review of Systems
afebrile
bp stable
remains on high flow at 40L and 80% FiO2
struggled with anxiety last night and also today
no personal history of exposure to birds, cats or cattle
reports its been a few years since his last flu vaccine
has four small children at home
Vital Signs / Physical Exam
Vital Signs
Vital Signs
Temp Pulse Resp BP Pulse Ox
98.4 F 63 25 124/81 100
01/09/25 07:22 01/09/25 08:00 01/09/25 08:00 01/09/25 08:00 01/09/25 08:00
Physical Exam
Constitutional: No Acute Distress
Cardiovascular: Regular Rate and S1/S2; Negative Murmur or Rub
Pulmonary: Clear, Coarse and Non Labored; Negative Symmetric, Wheezes or Rales
Gastrointestinal: Soft, Non Tender, Non Distended and Normal Bowel Sounds
Skin: Warm and Dry; Negative Rash or Jaundice
Objective Data
Lab Data
Lab Results
01/09/25 05:27
01/09/25 05:27
PT 15.8 Sec (11.4-14.6) H 01/03/25 14:04
INR 1.23 01/03/25 14:04
APTT 47.0 Sec (23.4-35.0) H 01/03/25 14:04
Estimated Creat Clear > 125 ml/min 01/09/25 05:27
Lactic Acid 1.4 mmol/L (0.7-2.0) 01/06/25 12:53
Total Bilirubin 0.9 mg/dl (0.2-1.3) 01/06/25 07:02
AST 47 U/L (17-59) 01/06/25 07:02
ALT 18 U/L (0-50) 01/06/25 07:02
Alkaline Phosphatase 165 U/L (38-126) H 01/06/25 07:02
Most recent labs reviewed.
Micro Results:
01/06/25 18:45 Respiratory Culture - Preliminary
Sputum Gram Stain - Preliminary
01/03/25 14:24 Blood Culture - Final
Blood/Venous Streptococcus pneumoniae
Gram Stain - Final
01/03/25 14:24 Blood Culture - Final
Blood/Venous Streptococcus pneumoniae
Gram Stain - Final
01/04/25 01:21 Urine Culture - Final
Urine NO GROWTH
01/04/25 01:21 Legionella Urinary Antigen - Final
Urine Negative for Legionella pneumophila Serogroup 1 antigen.
A negative result does not rule out the possiblity of
Legionella infection due to other serogroups or species of
Legionella. Clinical correlation is recommended.
Streptococcus pneumoniae Antigen (M - Final
Positive for Strep pneumo Ag
01/03/25 14:04 Influenza Types A & B (STEVE) - Final
Nasal Swab Influenza A Positive, NAAT
Blood Culture Final 01/07/25-52
Streptococcus pneumoniae
Organism 1 Streptococcus pneumoniae
1. Streptococcus pneumoniae
M.I.C. RX
--------- ---
Azithromycin <=0.5 S
Ceftriaxone <=0.25 S
Meningitis:
<=0.5 Susceptible
1 Intermediate
>=2 Resistant
Non-meningitis:
<=1 Susceptible
2 Intermediate
>=4 Resistant
Clindamycin <=0.06 S
Levofloxacin 1 I
Penicillin G <=0.03 S
Meningitis:
<=0.06 Susceptible
>=0.12 Resistant
Non-meningitis:
<=2 Susceptible
4 Intermediate
>=8 Resistant
Tetracycline <=0.5 S
Trimethoprim/Sulfamethoxazole <=.25/4.7 S
Vancomycin 0.5 S
Imaging:
01/07/2025 CXR (portable): Stable extensive bilateral pneumonia (R >L)
01/05/2025 CXR (portable): There is been significant worsening of extensive bilateral pneumonia and in her development of bilateral pleural effusions since prior study.
01/03/2025 CXR (portable): Interstitial and airspace opacity is demonstrated in the infrahilar region bilaterally, extending into the lower lobes, left greater than right, consistent with pneumonia. No radiographically demonstrable pleural effusion.
No pneumothorax. No CHF. Please see full dictation for additional detail. Film personally viewed.
[2025-01-09] MEDS: MORPHINE SULFATE 2 MG IV ×3 (09:52→21:26)
[2025-01-09] MEDS: TAMIFLU 75 MG PO ×2 (09:52→21:25)
[2025-01-09] MEDS: CHLORASEPTIC/SORE THROAT SPRAY 1 SPRAY PO (09:55)
--- NOTE | 2025-01-09 10:59 | W.PN.HOSP.TC ---
Today's Communication/Plan
-
Continue ceftriaxone and steroid
Continue pulmonary toileting
PRNs for anxiety and pain
Wean oxygen
Assessment / Plan
Assessment / Plan
#Acute hypoxic respiratory failure
#Sepsis with strep pneumo bacteremia
#Severe influenza A infection
-Likely postviral/superimposed bacterial pneumonia with S. pneumoniae; (+) strep Ag
-Has required high flow oxygen while here, up to 50 L this via high flow NC as of this morning
-Was started on Tamiflu course, ceftriaxone and azithromycin; also received a dose of vancomycin
-Chest x-ray as of 01/05 shows worsening right-sided consolidation, b/l effusions
-Spoke with ICU about starting steroid which was ordered for severe pneumonia
-S/p Vancomycin and azithromycin; remains on high flow nasal cannula as of 01/07
Plan
-Continue IV ceftriaxone 2 g daily
-Continue with dexamethasone IV 4 mg every 12 hour
-Continue with pulmonary toileting, chest physiotherapy
-Continue Ativan IV 1 mg as needed for anxiety
-Continue morphine IV 2 mg as needed for pleuritic pain
-Trend CBC, temperature curve, BMP
-SpO2 goal >90%
#Anxiety
-Has significant anxiety about his condition, being away from his home
-Suspect that this is interfering with his capacity to take deep breaths
-Spoke with pulmonology and ID, starting low-dose Ativan as above
#Leukocytosis
-Likely secondary to demargination from steroid as well as infection
-Was leukopenic/neutropenic prior
-Trend CBC on above antibiotic course
#Profound neutropenia
#Thrombocytopenia
#Multifactorial pancytopenia
#Folate deficiency
-Suspect that this is consumptive process with severe infection
-No known underlying bone marrow disorders or vitamin deficiencies
-Start IV folate daily, plan for oral after
-Educated patient on proper diet, encouraged a banana daily
#Hypoalbuminemia
-Albumin level only 2.2
-May be related to illness, however patient is young and without significant comorbidity
-Question long-term poor nutrition with albumin
#S/p septic shock
-Has been titrated off Levophed
-Monitor vital signs off of vasopressors
-MAP goal >65 mmHg
#Acute kidney injury
-Suspect septic ATN versus prerenal insult
-Resolved
#Anxiety
-Ativan as needed
#GERD
-Continue PPI
#Anxiety/depression
-Continue SSRI
#ADHD
-Resumed Adderall
DVT prophylaxis: subcu Lovenox
CODE STATUS: Full code
Diet: Regular
Family updated 01/06, 01/07, 01/08, 01/09 at bedside
Discussed case with infectious disease and pulmonology
Anticipated Discharge: > 48 hours
Subjective/Interval History
-
Date of Service: January 09, 2025
Seen and examined at the bedside. No acute events reported overnight. AFVSS on 40 L, SpO2 100%
He states that he feels better today, breathing improved and able to take deeper breaths. Platelet count improving
Denies any new complaints this morning.
Objective Data
-
Labs:
Laboratory Results
01/09/25
05:27
WBC 23.2 H
Hgb 10.4 L
Hct 29.9 L
Plt Count 67 L D
Sodium 134 L
Potassium 4.0
Chloride 101
Carbon Dioxide 31 H
BUN 20
Creatinine 0.6 L
Glucose 129 H
Calcium 7.7 L
Vital Signs:
Vital Signs
Temp Pulse Resp BP Pulse Ox
98.4 F 88 26 131/84 92
01/09/25 07:22 01/09/25 10:34 01/09/25 10:34 01/09/25 10:00 01/09/25 10:34
I&O
01/08/25 01/09/25 01/10/25
06:59 06:59 06:59
Intake Total 120 / 120 100 / 100
Output Total 1025 / 1025 400 / 400
Balance -905 / -905 -400 / -400 100 / 100
Review of Systems
-
History Source: Patient
All other systems: Reviewed and negative
Physical Exam
-
General: Well Developed, No Apparent Distress and Other (Thin male)
HEENT: Normocephalic, Atraumatic, Moist Mucous Membranes and Oxygen
Respiratory: Crackles (Bilateral lower lung partida) and Non Labored Respirations; Negative Wheezes, Rhonchi or Accessory Resp Muscle Use
Cardiac: Regular Rhythm and S1/S2; Negative Murmur, Rub or Gallop
GI: Soft, Nontender, Nondistended and Normal Bowel Sounds
Musculoskeletal: No Clubbing, No Cyanosis and No Edema
Skin: Warm, Dry and Normal Turgor; Negative Rash
Neuro: AO x 3 and Nonfocal/Grossly Intact; Negative Tremors
Psych: Calm
Data Reviewed
-
Labs: Labs Reviewed by me, Discussed with Patient and Discussed with Family
[2025-01-09] MEDS: ROCEPHIN 2000 MG IV (12:06)
[2025-01-09] MEDS: STERILE WATER FOR INJECTION 20 ML IV (12:06)
[2025-01-09] MEDS: FLUSH (NSS) IV ×2 (12:16→14:00)
[2025-01-09] MEDS: ATIVAN 1 MG IV (15:59)
--- NOTE | 2025-01-09 17:36 | CM ---
Patient with Dx Sepsis, bacteremia, influenza A, anxiety. High flow O2. Receiving IV Abx, IV Steroids, Tamiflu, IV Ativan prn, IV MS prn. PT recommends HH.
CM continuing to follow.
Plan TBD.
[2025-01-09] MEDS: SOLU-CORTEF 50 MG IV (17:54)
[2025-01-09] MEDS: LOVENOX 40 MG SC (17:57)
[2025-01-09] MEDS: LEXAPRO 20 MG PO (21:25)
--- NOTE | 2025-01-09 22:34 | PTCARENOTE ---
Assumed care of Pt from previous RN. No visitors at bedside this evening. Pt expressing some feelings of anxiety. Able to answer all orientation questions, however appears to be confused at times such as rambling about topics unrelated to current
conversation. pt resting in bed, HOB elevated @ 40 degrees. Pt oxygenating well at this time, sats 99%. Pt remains on Hi flow , 40L 80%. pt does express pain with coughing 07/29. Pt given ordered dose of PRN morphine for pain, see JAN. pt offered HS
oral care, pt declined, stating he brushed his teeth at 6pm. Assessment as documented. Call light in reach.
[2025-01-10] VITALS (9 sets, daily range): BP systolic 115–153; BP diastolic 70–93; BMI 21.3
[2025-01-10] MEDS: SOLU-CORTEF 50 MG IV ×4 (00:17→17:59)
[2025-01-10 05:06] LABS: Hematocrit 33.4 % (39.0-52.0); Hemoglobin 11.4 g/dL (13.0-18.0); Mean Corp Hgb Conc. 34.1 g/dL (33.0-37.0); Mean Corpuscular Hgb 30.6 pg (27.0-31.0); Mean Corpuscular Volume 89.5 fL (80.0-94.0); Platelet Count 143 10^3/uL (130-400); Red Blood Cell Count 3.73 10^6/uL (4.70-6.10); White Blood Cell Count 25.2 10^3/uL (4.8-10.8)
[2025-01-10 05:22] LABS: ALT (SGPT) 50 U/L (0-50); AST (SGOT) 49 U/L (17-59); Albumin 2.9 g/dl (3.5-5.0); Alkaline Phosphatase 177 U/L (38-126); Blood Urea Nitrogen 17 mg/dl (9-20); Calcium 7.9 mg/dl (8.4-10.2); Carbon Dioxide 30 mmol/L (22-30); Chloride 100 mmol/L (98-107); Estimated Creatinine Clearance > 125 ml/min; Glucose 112 mg/dl (70-99); Potassium 3.8 mmol/L (3.5-5.1); Sodium 135 mmol/L (135-145); Total Bilirubin 0.9 mg/dl (0.2-1.3); Total Protein 5.2 g/dl (6.3-8.2); eGFR > 60.00
[2025-01-10 05:35] LABS: Absolute Neutrophils -Man Diff 20.1 10^3/uL (1.4-6.5); Band Neutrophils 14 % (0-3); Lymphocytes 7 % (20-51); Metamyelocytes 7 % (-); Monocytes 3 % (2-9); Myelocytes 3 % (-); Normal RBC Morphology Yes; Platelets Checked Yes; Segmented Neutrophils 66 % (42-75); Total Cells Counted 100
[2025-01-10] MEDS: DUONEB 3 ML INH ×4 (08:02→19:11)
[2025-01-10] MEDS: SODIUM CHLORIDE 3% FOR INHALATION 1 VIAL INH ×2 (08:02→19:11)
[2025-01-10] MEDS: PROTONIX 20 MG PO (08:48)
[2025-01-10] MEDS: ADDERALL 15 MG PO ×2 (08:48→17:59)
[2025-01-10] MEDS: MUCINEX 1200 MG PO ×2 (08:48→20:05)
[2025-01-10] MEDS: TAMIFLU 75 MG PO ×2 (08:48→20:05)
[2025-01-10] MEDS: FOLVITE 50.2 MG IV (09:28)
[2025-01-10] MEDS: ATIVAN 1 MG IV ×3 (09:29→23:33)
[2025-01-10] MEDS: NSS (PRESERVATIVE FREE) 0.5 ML IV (09:30)
[2025-01-10] MEDS: TYLENOL 1000 MG PO ×2 (09:30→21:39)
--- NOTE | 2025-01-10 10:15 | W.PN.ID1 ---
Date of Service
Date of Service: January 10, 2025
Today's Communication
c/w Tamiflu 10 day course - 2 further days remain
Patient has completed a 5-day course of Azithromycin - no further atypical coverage needed
Continue ceftriaxone 2 gm q24 hours (d#8) - favor ongoing IV therapy given need for high flow NC
steroids per pulmonary
Assessment / Plan
Hypoxemic Resp Failure
Influenza A infection (severe)
Severe Strep pneumo pneumonia with bacteremia
Leukocytosis
Recent ERIC
- improved
Hypoxemic respiratory failure; on high flow O2
Thrombocytopenia
Lactic acidosis
Recommendations:
rare mold seen in sputum most likely a contaminant
c/w Tamiflu 10 day course - 2 further days remain
Patient has completed a 5-day course of Azithromycin - no further atypical coverage needed
Continue ceftriaxone 2 gm q24 hours (d#8) - favor ongoing IV therapy given need for high flow NC
steroids per pulmonary
Monitor white count for continued improvement; it appears to have plateaued.
Platelets normalized
Monitor respiratory status closely. Remains on high flow O2 at this time. Wean as tolerated.
Continue with supportive measures.
����������������������������������������������������������
Chief Complaint
-: Pneumonia, Bacteremia and Other (Influenza)
Subjective / Review of Systems
afebrile
BP stable
High flow NC down to 40L, 75%
resp culture: rare mold
'I feel a bit better'
Vital Signs / Physical Exam
Vital Signs
Vital Signs
Temp Pulse Resp BP Pulse Ox
98.6 F 61 17 153/88 97
01/10/25 07:05 01/10/25 08:06 01/10/25 08:06 01/10/25 04:00 01/10/25 08:47
Physical Exam
Constitutional: No Acute Distress and Acutely Ill
Cardiovascular: Regular Rate and S1/S2; Negative Murmur or Rub
Pulmonary: Symmetric, Coarse and Non Labored; Negative Wheezes or Rales
Gastrointestinal: Soft, Non Tender, Non Distended and Normal Bowel Sounds
Skin: Warm and Dry; Negative Rash or Jaundice
Objective Data
Lab Data
Lab Results
01/10/25 04:43
01/10/25 04:43
PT 15.8 Sec (11.4-14.6) H 01/03/25 14:04
INR 1.23 01/03/25 14:04
APTT 47.0 Sec (23.4-35.0) H 01/03/25 14:04
Estimated Creat Clear > 125 ml/min 01/10/25 04:43
Lactic Acid 1.4 mmol/L (0.7-2.0) 01/06/25 12:53
Total Bilirubin 0.9 mg/dl (0.2-1.3) 01/10/25 04:43
AST 49 U/L (17-59) 01/10/25 04:43
ALT 50 U/L (0-50) 01/10/25 04:43
Alkaline Phosphatase 177 U/L (38-126) H 01/10/25 04:43
Most recent labs reviewed.
Micro Results:
01/06/25 18:45 Respiratory Culture - Final
Sputum Mold
Gram Stain - Final
01/03/25 14:24 Blood Culture - Final
Blood/Venous Streptococcus pneumoniae
Gram Stain - Final
01/03/25 14:24 Blood Culture - Final
Blood/Venous Streptococcus pneumoniae
Gram Stain - Final
01/04/25 01:21 Urine Culture - Final
Urine NO GROWTH
01/04/25 01:21 Legionella Urinary Antigen - Final
Urine Negative for Legionella pneumophila Serogroup 1 antigen.
A negative result does not rule out the possiblity of
Legionella infection due to other serogroups or species of
Legionella. Clinical correlation is recommended.
Streptococcus pneumoniae Antigen (M - Final
Positive for Strep pneumo Ag
01/03/25 14:04 Influenza Types A & B (STEVE) - Final
Nasal Swab Influenza A Positive, NAAT
Blood Culture Final 01/07/25-851
Streptococcus pneumoniae
Organism 1 Streptococcus pneumoniae
1. Streptococcus pneumoniae
M.I.C. RX
--------- ---
Azithromycin <=0.5 S
Ceftriaxone <=0.25 S
Meningitis:
<=0.5 Susceptible
1 Intermediate
>=2 Resistant
Non-meningitis:
<=1 Susceptible
2 Intermediate
>=4 Resistant
Clindamycin <=0.06 S
Levofloxacin 1 I
Penicillin G <=0.03 S
Meningitis:
<=0.06 Susceptible
>=0.12 Resistant
Non-meningitis:
<=2 Susceptible
4 Intermediate
>=8 Resistant
Tetracycline <=0.5 S
Trimethoprim/Sulfamethoxazole <=.25/4.7 S
Vancomycin 0.5 S
Imaging:
01/07/2025 CXR (portable): Stable extensive bilateral pneumonia (R >L)
01/05/2025 CXR (portable): There is been significant worsening of extensive bilateral pneumonia and in her development of bilateral pleural effusions since prior study.
01/03/2025 CXR (portable): Interstitial and airspace opacity is demonstrated in the infrahilar region bilaterally, extending into the lower lobes, left greater than right, consistent with pneumonia. No radiographically demonstrable pleural effusion.
No pneumothorax. No CHF. Please see full dictation for additional detail. Film personally viewed.
--- NOTE | 2025-01-10 11:09 | W.PN.HOSP.TC ---
Today's Communication/Plan
-
Continue antibiotics and steroid
Continue as needed morphine and Ativan
Wean oxygen as able
Assessment / Plan
Assessment / Plan
#Acute hypoxic respiratory failure
#Sepsis with strep pneumo bacteremia
#Severe influenza A infection
-Likely postviral/superimposed bacterial pneumonia with S. pneumoniae; (+) strep Ag
-Has required high flow oxygen while here, up to 50 L this via high flow NC as of this morning
-Was started on Tamiflu course, ceftriaxone and azithromycin; also received a dose of vancomycin
-Chest x-ray as of 01/05 shows worsening right-sided consolidation, b/l effusions
-Spoke with ICU about starting steroid which was ordered for severe pneumonia
-S/p Vancomycin and azithromycin; remains on high flow nasal cannula as of 01/07
-IV Decadron was transition to hydrocortisone by pulm (steroid used in the trials)
-Status post course of Tamiflu
-Currently on 40 L high flow
Plan
-Continue IV ceftriaxone 2 g daily
-Continue with hydrocortisone 50 mg IV Q6
-Continue with pulmonary toileting, chest physiotherapy
-Continue Ativan IV 1 mg as needed for anxiety
-Continue morphine IV 2 mg as needed for pleuritic pain
-Trend CBC, temperature curve, BMP
-SpO2 goal >90%
#Anxiety
-Has significant anxiety about his condition, being away from his home
-Suspect that this is interfering with his capacity to take deep breaths
-Spoke with pulmonology and ID, starting low-dose Ativan as above
-Continue with home Lexapro
#Leukocytosis
-Likely secondary to demargination from steroid as well as infection
-Was leukopenic/neutropenic prior
-Trend CBC on above antibiotic course
#Profound neutropenia
#Thrombocytopenia
#Multifactorial pancytopenia
#Folate deficiency
-Suspect that this is consumptive process with severe infection
-No known underlying bone marrow disorders or vitamin deficiencies
-Start IV folate daily, plan for oral after
-Educated patient on proper diet, encouraged a banana daily
#Hypoalbuminemia
-Albumin level was down to 2.2, has improved up to 2.9
-May be related to illness, however patient is young and without significant comorbidity
#S/p septic shock
-Has been titrated off Levophed
-Monitor vital signs off of vasopressors
-MAP goal >65 mmHg
#Acute kidney injury
-Suspect septic ATN versus prerenal insult
-Resolved
#GERD
-Continue PPI
#ADHD
-Resumed Adderall
DVT prophylaxis: subcu Lovenox
CODE STATUS: Full code
Diet: Regular
Family updated 01/06, 01/07, 01/08, 01/09 at bedside
Discussed case with infectious disease and pulmonology
Anticipated Discharge: > 48 hours
Subjective/Interval History
-
Date of Service: January 10, 2025
Seen and examined at the bedside. No acute events reported overnight. AFVSS with SpO2 100% on 40 L high flow
Chest x-ray from this morning appears improved. Leukocytosis stable. Sputum no longer deb brown.
He states that his pain is improved, able to take deeper breaths. Denies new complaints
Objective Data
-
Labs:
Laboratory Results
01/10/25
04:43
WBC 25.2 H
Hgb 11.4 L
Hct 33.4 L
Plt Count 143 D
Sodium 135
Potassium 3.8
Chloride 100
Carbon Dioxide 30
BUN 17
Creatinine 0.6 L
Glucose 112 H
Calcium 7.9 L
Total Bilirubin 0.9
AST 49
ALT 50
Alkaline Phosphatase 177 H
Vital Signs:
Vital Signs
Temp Pulse Resp BP Pulse Ox
98.0 F 74 17 123/76 98
01/10/25 10:40 01/10/25 10:00 01/10/25 10:00 01/10/25 08:52 01/10/25 10:00
I&O
01/09/25 01/10/25 01/11/25
06:59 06:59 06:59
Intake Total 100 / 100
Output Total 400 / 400
Balance -400 / -400 100 / 100
Review of Systems
-
History Source: Patient
All other systems: Reviewed and negative
Physical Exam
-
General: Well Developed, No Apparent Distress and Other (Thin male)
HEENT: Normocephalic, Atraumatic and Moist Mucous Membranes
Respiratory: Clear to Auscultation and Non Labored Respirations
Cardiac: Regular Rhythm and S1/S2; Negative Murmur, Rub or Gallop
GI: Soft, Nontender, Nondistended and Normal Bowel Sounds
Musculoskeletal: No Clubbing, No Cyanosis and No Edema
Skin: Warm, Dry and Normal Turgor; Negative Rash
Neuro: AO x 3 and Nonfocal/Grossly Intact
Psych: Calm
Data Reviewed
-
Diagnostic Radiology: Report Reviewed by me and Discussed with Patient
Labs: Labs Reviewed by me and Discussed with Patient
[2025-01-10] MEDS: ROCEPHIN 2000 MG IV (12:09)
[2025-01-10] MEDS: STERILE WATER FOR INJECTION 20 ML IV (12:10)
[2025-01-10] MEDS: FLUSH (NSS) IV ×2 (12:16)
--- NOTE | 2025-01-10 14:43 | W.PN.PUL3 ---
Today's Communication / Plan
-
Continue high flow nasal cannula
Increase activity as tolerated
Pain control for throat with phenol spray
Abx per ID
On 01/09 I changed decadron to solu-cortef given his severe CAP
DuoNebs, 3% nebulized for pulmonary toilet purposes and Mucinex
Encourage mucus clearing devices
Follow radiographically occasionally (CXR this AM shows improved PNA)
Pulmonary service will continue to follow along
Assessment
-
44-year-old male without significant past medical history presented with shortness of breath, cough, found to have influenza as well as bilateral pneumonia-lighting technician consulted for respiratory failure, pneumonia, influenza, and critical care
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
Sepsis - shock state now resolved since 01/04/2025
Multifocal CAP due to Strep pneumonia
Influenza A
Streptococcal pneumonia bacteremia
Leukocytosis
Thrombocytopenia
Lactic acidosis - now resolved since 01/04/2025
ERIC - now resolved
Hypocalcemia
Conditions present prior to admission:
Depression/anxiety
GERD
Plan
Respiratory status still somewhat tenuous on high flow NC, albeit he is improving with FiO2 now down to 50%, 40L/min
CXR today shows improved pneumonia
Continue to wean down FiO2 as tolerated while keeping flow as high as tolerated to increase delivered PEEP
Given his severe CAP, continue with systemic steroids, was on Decadron 4 mg IV q12hr since 01/05/2025 --> given his continued high O2 requirements, on 01/09 I changed to solu-cortef 50mg IV q6hr x 2-3 days then will taper
Incentive spirometry-encouraged q1hr while awake
Aspiration precautions
Mucolytics with Mucinex 1200 mg twice daily
Flutter valve encouraged
Vest therapy initiated
DuoNebs as well as saline nebulizers continued to help break up mucus
Out of bed in chair encouraged.
Chest x-ray 01/07/2025-stable extensive bilateral pneumonia worse on the right than the left
Pain control --> continue phenol throat spray and consider lidocaine swallow if pain worsens/persists
Cultures reviewed--strep PNA
Influenza A+, Tamiflu continues per ID
Blood cultures x2 from 01/03/2025 has grown Streptococcus pneumonia
Sputum culture from 01/06/2025 has grown mold, likely a contaminant
Urine Legionella-negative
Urine strep pneumonia antigen-positive
Abx as per ID --> currently on rocephin s/p zithromax (01/03-01/08/2025)
Echocardiogram 01/06/2025-EF 50-55%,, normal right ventricular size and function, no valvular disease
Trend WBC and platelet count
Transfuse as needed to keep Hb>7, plt>20k
Hematology consulted and recs appreciated
Monitor renal function-now normalized
DVT prophylaxis - LMWH
Nutrition
Increase activity/ Eventual physical therapy
Dr. York reviewed with and patient's father at the bedside 01/07/2025 as well as reviewed with hospitalist, nursing, respiratory therapy
Dr. Nuñez reviewed with and father on 01/08/[address] Nuñez reviewed with patient and family on 01/09/2025 + 01/10/2025
Previously: The family had requested transfer as soon as he was admitted-Dr. York and hospitalist spoke to [facility] and patient was placed into que-nonurgent as [facility] felt they could not offer anything that was not being offered here-family subsequently
requested discontinuation and thus the patient was not transferred as he was improving-subsequently family again asked for transfer-hospitalist contacted [facility]-not appropriate for transfer
Pulmonary service will continue to follow along
Diagnostic Data:
Chest x-ray 01/03/2025-bibasilar pneumonia left greater than right
Chest x-ray 01/10/2025-moderate bilateral pneumonia, right greater than left - Improved; mild cardiomegaly - new
Total time spent today was 53 minutes for this encounter. Time includes reviewing laboratory test/imaging results, reviewing pertinent medical records, obtaining and reviewing medical history, performing an appropriate exam, ordering medications,
tests and procedures. Time also includes documentation of this encounter, coordinating patient care and communicating with other healthcare professionals. Total time does not include separately billed tests performed on this date of service.
Subjective Data
-
Date of Service:
Date of Service: January 10, 2025
Chief Complaint: Pulmonary Follow Up and Dyspnea Follow Up
Subjective:
Patient was seen and evaluated today at bedside. Hypoxia has improved and he is currently on high flow nasal cannula at 50% FiO2, 40 L/min. Patient's father at bedside and all questions were answered. Patient saturating 88%, heart rate 95 + BP
121/76. He says his throat pain is still there but not worsening. Denies chest pain, VAZQUEZ, nausea, fevers or chills.
Review of Systems
General: Other (Negative unless mentioned above)
Objective Data
Data Reviewed
Vital Signs / I&O / Oxygen:
Vital Signs
Temp Pulse Resp BP Pulse Ox
98.6 F 61 17 153/88 97
01/10/25 07:05 01/10/25 08:06 01/10/25 08:06 01/10/25 04:00 01/10/25 08:47
Intake and Output
01/09/25 01/10/25 01/11/25
06:59 06:59 06:59
Intake Total 100 / 100
Output Total 400 / 400
Balance -400 / -400 100 / 100
SaO2 97
Nasal Cannula flow liters per 40
minute
Physical Exam
General: Respiratory Distress (n), Comfortable, Chills (n) and Sweats (n)
HEENT: Normocephalic and Anicteric
Cardiovascular: S1-S2 and Peripheral Edema (negative)
Respiratory: Wheeze (negative), Crackles (Bibasilar), Rhonchi (Expiratory), Non-Labored Respirations, Accessory Resp Muscle Use (n) and Stridor (n)
GI: Soft, Non Distended, Non Tender and Normal Bowel Sounds
Neurology: AO x 3 and Tremors (negative)
Skin: Warm, Dry, Cyanosis (n) and Jaundice (n)
Labs/Micro/Reports
Lab Data
01/10/25 04:43
01/10/25 04:43
Microbiology
01/06/25 18:45 Sputum Respiratory Culture - Final
Mold
01/06/25 18:45 Sputum Gram Stain - Final
01/03/25 14:24 Blood/Venous Blood Culture - Final
Streptococcus pneumoniae
01/03/25 14:24 Blood/Venous Gram Stain - Final
01/03/25 14:24 Blood/Venous Blood Culture - Final
Streptococcus pneumoniae
01/03/25 14:24 Blood/Venous Gram Stain - Final
--- NOTE | 2025-01-10 15:12 | PTCARENOTE ---
Successful weaning of HF to 40L / 50% sao2 93-95%. No use of NRB mask today. OOB in chair this afternoon, sao2 dropped to 86% recovered on own within 4 min to 93%. Using IS/ Flutter - family encouraging as well.
AAO however some confused off conversation noted. Skin moist, warm- bathing helped. NSR on tele. States he had a BM early this morning. Continent of urine.
PRN Ativan and Tylenol given this am as he was afraid to have coughing fits which cause burning pains -that turns into full panic attacks. Worked well. Pain is there but able to use IS / flutter- he is slightly anxious (when pox 80s) but recovered
quickly and did not panic.
[2025-01-10] MEDS: MORPHINE SULFATE 2 MG IV ×3 (15:52→22:51)
[2025-01-10] MEDS: LOVENOX 40 MG SC (17:59)
[2025-01-10] MEDS: LEXAPRO 20 MG PO (20:05)
[2025-01-10] MEDS: NSS (PRESERVATIVE FREE) 0.25 ML IV (20:09)
--- NOTE | 2025-01-10 20:22 | PTCARENOTE ---
Caring for pt overnight. aaox3 but still confused and forgetful. Slow to answer. Remains on HFNC 40L 50%, no SOB noted. NO assessment changes. Poor appetite. NSR on monitor. Bed alarm on. Call marroquin in reach. Will monitor.
[2025-01-11] VITALS (25 sets, daily range): BP systolic 126–173; BP diastolic 70–110; BMI 20.3
[2025-01-11] MEDS: SOLU-CORTEF IV
[2025-01-11 01:15] LABS: B.E. 2.2 mmol/L; HCO3 24.5 mmol/L (21-28); O2 Saturation % 91.3 % (94-98); PCO2 30 mmHg (35-48); pH 7.52 (7.35-7.45)
[2025-01-11 01:20] LABS: PO2 54 mmHg (83-108)
[2025-01-11] MEDS: NSS (PRESERVATIVE FREE) 1 ML IV (01:36)
[2025-01-11] MEDS: ATIVAN 2 MG IV (01:36)
--- NOTE | 2025-01-11 01:45 | PTCARENOTE ---
Pt calm but confused in beginning of shift but explained to nurse he was having anxiety and pain. Given prn morphine then ativan later. Pts anxiety got increasingly worse. He also remained confused. Pt jumping OOB & ripping all equipment off
including HFNC. LEATHER FITTER up to see pt. Additional dose of ativan & morphine given. Not effective. Pt not listening to staff, still ripping everything off. Wrist restraints ordered. Pt continued to be restless in bed, sweating, hyperventilating, &
confused. all vss. NSR/ST. LEATHER FITTER aware. Transfer to ICU for precedex.
[2025-01-11] MEDS: PRECEDEX 100 IV ×2 (02:07→17:48)
[2025-01-11 02:10] LABS: Hematocrit 30.6 % (39.0-52.0); Hemoglobin 10.6 g/dL (13.0-18.0); Mean Corp Hgb Conc. 34.6 g/dL (33.0-37.0); Mean Corpuscular Hgb 30.4 pg (27.0-31.0); Mean Corpuscular Volume 87.7 fL (80.0-94.0); Mean Platelet Volume 10.3 fL (7.4-10.4); Platelet Count 243 10^3/uL (130-400); Red Blood Cell Count 3.49 10^6/uL (4.70-6.10); White Blood Cell Count 24.2 10^3/uL (4.8-10.8)
--- NOTE | 2025-01-11 02:13 | W.PN.UPDATE ---
Update Note
Progress Note Update
Nursing notes patient with increased anxiety/panic/fidgeting becoming progressively worse as the night progressed. Unable to sit still and is able to describe how he feels. Ativan IV and Morphine IV not effective. His steroids were changed to Solu
Cortef earlier. He has a baseline anxiety/ADHD disorder of which he takes Lexapro and Adderall. ABG ordered while on high flow oxygen with PO2 of 54. Reviewed with ICU GAS ENGINE PERFORMANCE ENGINEER as well as Dr. Yadav and we will transfer to ICU.
[2025-01-11 02:18] LABS: INR 1.23; PT 15.8 Sec (11.4-14.6)
[2025-01-11 02:19] LABS: APTT 36.8 Sec (23.4-35.0); Blood Urea Nitrogen 16 mg/dl (9-20); Calcium 7.8 mg/dl (8.4-10.2); Carbon Dioxide 26 mmol/L (22-30); Chloride 105 mmol/L (98-107); Estimated Creatinine Clearance > 125 ml/min; Glucose 105 mg/dl (70-99); Magnesium 2.1 mg/dl (1.6-2.3); Phosphorus 2.4 mg/dl (2.5-4.5); Potassium 3.7 mmol/L (3.5-5.1); Sodium 139 mmol/L (135-145); eGFR > 60.00
--- NOTE | 2025-01-11 02:35 | PTCARENOTE ---
Pt arrived to ICU room 3371 from IMU as an upgrade at 0140. Upon arrival pt in b/l soft wrist restraints, on HFNC. Pt had been on 50% 45LPM, this was increased to 70% 55LPM. Pt extremely restless and confused. Able to state his name and birthday but
otherwise not oriented to place/time/situation. Unable to be reoriented. Pt not making any sense when he talks, talking about space and using words that don't make sense in his sentences. Ripping everything off--gown, leads, pulse ox, oxygen,
attempting to get OOB, continuously moving and unable to sit still in bed. Precedex infusion started, see med titration flowsheet. FiO2 increased to 100% and NRB mask added. New IV placed, labs sent. Mitts placed on patient because he manages to
still pull things off when in restraints alone. When pt sitting still, SpO2 is in high 90s. Tachycardic 110s on monitor, but then will alternate between tachycardic and NS in 70s-80s. See nursing shift assessment flowsheet for full physical
assessment details.
[2025-01-11 03:12] LABS: Absolute Neutrophils -Man Diff 21.2 10^3/uL (1.4-6.5); Band Neutrophils 4 % (0-3); Lymphocytes 4 % (20-51); Monocytes 1 % (2-9); Segmented Neutrophils 84 % (42-75)
[2025-01-11 03:13] LABS: Metamyelocytes 4 % (-); Myelocytes 3 % (-); Normal RBC Morphology Yes; Platelets Checked Yes; Total Cells Counted 100
[2025-01-11] MEDS: MORPHINE SULFATE 4 MG IV (03:18)
--- NOTE | 2025-01-11 03:29 | PTCARENOTE ---
Pt continues to be restless, having auditory hallucinations, pulling at things, is now in 4pt soft restaints due to attempting to get OOB and managing to remove a wrist restraint with his foot. Mitts also on patient but he manages to remove them
frequently. Morphine 4mg IV x1 ordered which did manage to calm pt down somewhat but he is still restless. Remains on HFNC 100% 55LPM, NRB mask removed. SpO2 98% currently. SR 60s on monitor.
--- NOTE | 2025-01-11 04:46 | W.PN.UPDATE ---
Update Note
Progress Note Update
01/11/25
0115- Asked by Yashira CAMARILLO to evaluate patient in IMU. Patient having increased agitation, restlessness, diaphoretic, tachycardic (HR 100-120s), and hypoxemic. Oxygen demands quickly increased due to restlessness, agitation, now on High
Flow Nasal Cannula. Patient was given ativan prn and morphine prn, with little effect. Will transfer to ICU for closer monitoring for worsening hypoxemia due to agitation/restlessness which may require sedation including precedex gtt. Dr. Yadav,
hospitalist agreed with plan of care.
Patient afebrile, temperature rectally 98, drenched in sweat and visibly flushed in the face. Reviewed medications patient received, today medications were changed decadron to solu-cortef given his severe CAP. Possibility that steroid induced
psychosis or irritability; causing anxiety, restlessness, and mood disturbances. Also possibilities include ICU/hospitalized delirium. Patient has been unable to sleep due to restlessness. Able to re-direct patient, he does know self, location,
and place although he does at times say nonsensical things. Additional dosages of ativan, morphine given IV, Precedex gtt initiated.
ABG reviewed PO2 was 54. Patient is deconditioned and due to increased agitation restless activity now has worsening hypoxemia and increased high flow oxygenation needs now on 100%. Chest xray obtained, no acute changes in pneumonia. Ct scan of
the head ordered for acute confusion, no other neurological deficits noted with neuromuscular weakness, strength, sensation, vision, speech is fluent/no dysarthria. Case discussed with Dr. Nuñez, agreed with stopping IV steroids for now and
obtain Ctscan of the head when patient is more calm and can lay for the scan and/or hypoxemia has improve and patient can lay flat for the scan. Patient Tanya called and updated, all questions answered.
--- NOTE | 2025-01-11 04:53 | PTCARENOTE ---
Pt much less restless, able to change sheets under patient, condom cath placed, pt woke up but was cooperative with care and not trying to rip anything off, pt repositioned for comfort, remains on same HFNC settings, SR 60s on monitor, SpO2 99%
currently. CT head ordered. came in and is now at bedside, updated on plan of care and questions answered.
[2025-01-11] MEDS: SODIUM CHLORIDE 3% FOR INHALATION 1 VIAL INH ×2 (07:41→20:05)
[2025-01-11] MEDS: DUONEB 3 ML INH ×4 (07:41→20:05)
[2025-01-11] MEDS: TAMIFLU 75 MG PO ×2 (07:59→21:07)
[2025-01-11] MEDS: FOLVITE 50.2 MG IV (08:00)
[2025-01-11] MEDS: MUCINEX 1200 MG PO ×2 (08:00→21:07)
[2025-01-11] MEDS: PROTONIX 20 MG PO (08:00)
[2025-01-11] MEDS: ADDERALL 15 MG PO ×2 (08:21→17:26)
--- NOTE | 2025-01-11 08:27 | W.PN.INTV ---
Today's Communication / Plan
Recommendations
Continue high flow nasal cannula and reduce FiO2 as tolerated while keeping SpO2 90% or greater
Wean down precedex gtt and start seroqeul tonight to help get him off the precedex
Increase activity as tolerated
Pain control for throat with phenol spray
Abx per ID
On 01/09 I changed decadron to solu-cortef given his severe CAP --> developed suspected steroid-induced psychosis on 01/10 - 01/11/2025 � steroids now discontinued
DuoNebs, 3% nebulized for pulmonary toilet purposes and Mucinex
Encourage mucus clearing devices
Follow radiographically occasionally (CXR on 01/10 + 01/11 shows improved PNA)
Continue ICU level care for this critically ill patient
Assessment
-
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
Acute agitation requiring Precedex drip, likely due to steroid-induced psychosis
Sepsis - shock state now resolved since 01/04/2025
Multifocal CAP due to Strep pneumonia
Influenza A
Streptococcal pneumonia bacteremia
Leukocytosis
Thrombocytopenia - resolved
Lactic acidosis - now resolved since 01/04/2025
ERIC - now resolved
Hypocalcemia
Conditions present prior to admission:
Depression/anxiety
GERD
Plan
Patient had worsening anxiety and confusion overnight, jumped out of bed, ripped all equipment off including his high flow nasal cannula, given Ativan and morphine which was not effective and he was nondirectable. Wrist restraints ordered and he
continued to be anxious/hyperventilating and confused. Eventually transferred to the ICU for Precedex drip and high flow nasal cannula FiO2 raised to 100% - Head CT performed showed no acute intracranial abnormality
This morning he is improved, up out of bed and following commands, with HFNC FiO2 down to 50% / 40 L/min --> titrate FiO2 to keep SpO2 at 90% or greater
Will start seroquel at night with low dose to help get him off the precedex
CXR from 01/10 showed improved pneumonia; CXR from 01/11 is similar
Continue to wean down FiO2 as tolerated while keeping flow as high as tolerated to increase delivered PEEP
Given his severe CAP, he was continue on systemic steroids, was on Decadron 4 mg IV q12hr since 01/05/2025 --> given his continued high O2 requirements, on 01/09 Dr. Nuñez changed to solu-cortef 50mg IV q6hr --> he developed severe
agitation/confusion on the evening of 01/10 - 01/11/2025, requiring Precedex drip. Suspect this is steroid-induced psychosis. Steroids now discontinued
Incentive spirometry-encouraged q1hr while awake
Aspiration precautions
Mucolytics with Mucinex 1200 mg twice daily
Flutter valve encouraged
Vest therapy initiated
DuoNebs as well as saline nebulizers continued to help break up mucus
Out of bed in chair encouraged.
Chest x-ray 01/07/2025-stable extensive bilateral pneumonia worse on the right than the left
Pain control --> continue phenol throat spray and consider lidocaine swallow if pain worsens/persists
Cultures reviewed--strep PNA
Influenza A+, Tamiflu continues per ID
Blood cultures x2 from 01/03/2025 has grown Streptococcus pneumonia
Sputum culture from 01/06/2025 has grown mold, likely a contaminant
Urine Legionella-negative
Urine strep pneumonia antigen-positive
Abx as per ID --> currently on rocephin s/p zithromax (01/03-01/08/2025)
Echocardiogram 01/06/2025-EF 50-55%, normal right ventricular size and function, no valvular disease
Trend WBC and platelet count
Transfuse as needed to keep Hb>7, plt>20k
Hematology consulted and recs appreciated
Monitor renal function-now normalized
DVT prophylaxis - LMWH
Nutrition
Increase activity/ Eventual physical therapy
Dr. York reviewed with and patient's father at the bedside 01/07/2025 as well as reviewed with hospitalist, nursing, respiratory therapy
Dr. Nuñez reviewed with and father on 01/08/[address] Nuñez reviewed with patient and family on 01/09/2025 + 01/10/2025 and spoke with the mother on 01/11/2025
Previously: The family had requested transfer as soon as he was admitted-Dr. York and hospitalist spoke to [facility] and patient was placed into que-nonurgent as [facility] felt they could not offer anything that was not being offered here-family subsequently
requested discontinuation and thus the patient was not transferred as he was improving-subsequently family again asked for transfer-hospitalist contacted [facility]-not appropriate for transfer
Continue ICU level care for this critically ill patient
Critical care statement: A total of 37 minutes of critical care time was provided for this patient today. This includes management of unstable vital signs, evaluation of the patient at bedside, reviewing the patient's pertinent medical records
including radiographs, microbiology, laboratory evaluations, and discussion with primary team, consultants, pharmacy, nutrition, physical therapy, case management, charge nurse, critical care nursing, and respiratory therapy.
Diagnostic Data:
Chest x-ray 01/03/2025-bibasilar pneumonia left greater than right
Chest x-ray 01/10/2025-moderate bilateral pneumonia, right greater than left - Improved; mild cardiomegaly - new
Chest x-ray 01/11/2025-Patchy bibasilar pneumonia, also seen on prior study. Unchanged or slightly improved compared to prior chest x-ray; No large pleural effusion on either side.
CT Head 01/11/2025- No acute intracranial abnormality noted
Subjective Dataa
Subjective Data
Date of Service:
Date of Service: January 11, 2025
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
Subjective:
Patient was upgraded to the ICU overnight due to severe agitation/anxiety causing worsening cough/shortness of breath and hypoxia with high flow nasal cannula FiO2 increasing to 100%, and he required Precedex. This morning he is sitting in the
chair no acute distress, still on Precedex at 0.8mcg/kg/hr, and is calm. He says that he is not sure what happened last night but he remembers having a hard time falling asleep and then he became very anxious and 'amped up.' He is currently
saturating 89-90% on high flow nasal cannula 40 L/min / 50% FiO2. BP 145/88 and heart rate 108. He denies chest pain, VAZQUEZ, fevers or chills.
Review of Systems
General: Other (Negative unless mentioned above)
Objective Data
Data Reviewed
Vital Signs / I&O / Oxygen:
Vital Signs
Temp Pulse Resp BP Pulse Ox
97.6 F 71 22 151/88 99
01/11/25 02:01 01/11/25 08:00 01/11/25 08:00 01/11/25 08:00 01/11/25 10:35
Intake and Output
01/10/25 01/11/25 01/12/25
06:59 06:59 06:59
Intake Total 100 / 100 2308.2 / 2319.9 416.8 / 416.8
Output Total 500 / 500
Balance 100 / 100 1808.2 / 1819.9 416.8 / 416.8
SaO2 99
Nasal Cannula flow liters per 45
minute
Physical Exam
General: Respiratory Distress (n), Comfortable, Chills (negative) and Sweats (negative)
HEENT: Normocephalic, Anicteric and Moist Mucous Membranes
Cardiovascular: S1-S2, Murmur (n) and Peripheral Edema (negative)
Respiratory: Wheeze (negative), Crackles (Bilateral basilar (R>L)), Rhonchi (negative), Non-Labored Respirations and Accessory Resp Muscle Use (n)
GI: Soft, Non Distended, Non Tender and Normal Bowel Sounds
Neurology: Awake, Alert, Oriented, Tremors (negative) and Depressed
Skin: Warm, Dry, Cyanosis (n), Jaundice (n) and Rash (n)
Labs/Micro/Reports
Lab Data
01/11/25 01:58
01/11/25 01:58
Laboratory Results
01/11/25 01/11/25
01:08 01:58
PT 15.8 H
INR 1.23
APTT 36.8 H
pH 7.52 H
pCO2 30 L
pO2 54 L*
HCO3 24.5
O2 Delivery Level
Microbiology
01/06/25 18:45 Sputum Respiratory Culture - Final
Mold
01/06/25 18:45 Sputum Gram Stain - Final
--- NOTE | 2025-01-11 09:11 | W.PN.ID1 ---
Date of Service
Date of Service: January 11, 2025
Today's Communication
rare mold seen in sputum most likely a contaminant
c/w Tamiflu 10 day course - tomorrow is final day
Continue ceftriaxone 2 gm q24 hours (d#9) - favor ongoing IV therapy given need for high flow NC
Patient has completed a 5-day course of Azithromycin - no further atypical coverage needed
steroids stopped 01/10 in the setting of anxiety
Assessment / Plan
Hypoxemic Resp Failure
Influenza A infection (severe)
Severe Strep pneumo pneumonia with bacteremia
Leukocytosis
Recent ERIC
- improved
Hypoxemic respiratory failure; on high flow O2
Thrombocytopenia
Lactic acidosis
Delirium
Recommendations:
rare mold seen in sputum most likely a contaminant
c/w Tamiflu 10 day course - tomorrow is final day
Continue ceftriaxone 2 gm q24 hours (d#9) - favor ongoing IV therapy given need for high flow NC
Patient has completed a 5-day course of Azithromycin - no further atypical coverage needed
steroids stopped 01/10 in the setting of anxiety
Monitor white count for continued improvement; steroids stopped by pulmonary 01/10 in the setting of anxiety
Monitor respiratory status closely. Remains on high flow O2 at this time with some interval increase in the setting of prominent anxiety. Wean as tolerated.
Continue with supportive measures.
����������������������������������������������������������
Chief Complaint
-: Pneumonia, Bacteremia and Other (Influenza)
Subjective / Review of Systems
prominent anxiety overnight also confusion
increasing FiO2 requirements overnight
steroids were stopped
patient was transferred to the ICU
remains afebrile
bp stable
now on 50L O2 and 70% O2 - increased compared to yesterday
still somewhat confused - telling me he was planning to change his clothes for dinner last night
Vital Signs / Physical Exam
Vital Signs
Vital Signs
Temp Pulse Resp BP Pulse Ox
97.6 F 71 22 151/88 100
01/11/25 02:01 01/11/25 08:00 01/11/25 08:00 01/11/25 08:00 01/11/25 08:40
Physical Exam
Constitutional: No Acute Distress
Cardiovascular: Regular Rate and S1/S2; Negative Murmur or Rub
Pulmonary: Symmetric and Coarse; Negative Wheezes or Rales
Gastrointestinal: Soft, Non Tender, Non Distended and Normal Bowel Sounds
Skin: Warm and Dry; Negative Rash or Jaundice
Neurological: Awake
Objective Data
Lab Data
Lab Results
01/11/25 01:58
01/11/25 01:58
PT 15.8 Sec (11.4-14.6) H 01/11/25 01:58
INR 1.23 01/11/25 01:58
APTT 36.8 Sec (23.4-35.0) H 01/11/25 01:58
Estimated Creat Clear > 125 ml/min 01/11/25 01:58
Lactic Acid 1.4 mmol/L (0.7-2.0) 01/06/25 12:53
Total Bilirubin 0.9 mg/dl (0.2-1.3) 01/10/25 04:43
AST 49 U/L (17-59) 01/10/25 04:43
ALT 50 U/L (0-50) 01/10/25 04:43
Alkaline Phosphatase 177 U/L (38-126) H 01/10/25 04:43
Most recent labs reviewed.
Micro Results:
01/06/25 18:45 Respiratory Culture - Final
Sputum Mold
Gram Stain - Final
01/03/25 14:24 Blood Culture - Final
Blood/Venous Streptococcus pneumoniae
Gram Stain - Final
01/03/25 14:24 Blood Culture - Final
Blood/Venous Streptococcus pneumoniae
Gram Stain - Final
01/04/25 01:21 Urine Culture - Final
Urine NO GROWTH
01/04/25 01:21 Legionella Urinary Antigen - Final
Urine Negative for Legionella pneumophila Serogroup 1 antigen.
A negative result does not rule out the possiblity of
Legionella infection due to other serogroups or species of
Legionella. Clinical correlation is recommended.
Streptococcus pneumoniae Antigen (M - Final
Positive for Strep pneumo Ag
01/03/25 14:04 Influenza Types A & B (STEVE) - Final
Nasal Swab Influenza A Positive, NAAT
Blood Culture Final 01/07/25-851
Streptococcus pneumoniae
Organism 1 Streptococcus pneumoniae
1. Streptococcus pneumoniae
M.I.C. RX
--------- ---
Azithromycin <=0.5 S
Ceftriaxone <=0.25 S
Meningitis:
<=0.5 Susceptible
1 Intermediate
>=2 Resistant
Non-meningitis:
<=1 Susceptible
2 Intermediate
>=4 Resistant
Clindamycin <=0.06 S
Levofloxacin 1 I
Penicillin G <=0.03 S
Meningitis:
<=0.06 Susceptible
>=0.12 Resistant
Non-meningitis:
<=2 Susceptible
4 Intermediate
>=8 Resistant
Tetracycline <=0.5 S
Trimethoprim/Sulfamethoxazole <=.25/4.7 S
Vancomycin 0.5 S
Imaging:
01/07/2025 CXR (portable): Stable extensive bilateral pneumonia (R >L)
01/05/2025 CXR (portable): There is been significant worsening of extensive bilateral pneumonia and in her development of bilateral pleural effusions since prior study.
01/03/2025 CXR (portable): Interstitial and airspace opacity is demonstrated in the infrahilar region bilaterally, extending into the lower lobes, left greater than right, consistent with pneumonia. No radiographically demonstrable pleural effusion.
No pneumothorax. No CHF. Please see full dictation for additional detail. Film personally viewed.
--- NOTE | 2025-01-11 09:38 | PTCARENOTE ---
Complete assessment done and documented in JAN. Pt presently calm, oriented x3, but with occ confused conversation. Restraints off at this time, Precedex presently at 0.8 mcg/kg/hr. HR SR. Received pt on high flow 55L, 100%, (O2 sat= 100%), weaned
down now to 50L, 85%. (98% sat). Lobes diminished throughout, crackles noted at R lower lobe. Breakfast ordered, call marroquin at pt's side, and pt's in room and updated. AM meds given, pt swallowing without difficulty.
--- NOTE | 2025-01-11 10:34 | PTCARENOTE ---
Pt's O2 being weaned down as tolerated. Pt presently on 45L, 60%, high flow, O2 sat=98%. Pt's mother and father in room visiting and updated. Dr Nuñez also updated on pt. Pt ate 25% of breakfast, encouraged to drink all of his protein drink,
which he did do. Mouth care done.
--- NOTE | 2025-01-11 11:17 | W.PN.HOSP.TC ---
Addendum entered and electronically signed by Gennaro Sarkar DO 01/11/25 17:34:
Update: Patient has 1 more day of Tamiflu, to complete on 01/12
Original Note:
Today's Communication/Plan
-
Continue IV ceftriaxone and pulmonary toileting
Management of anxiety with Ativan, supportive techniques
As needed morphine for pleuritic pain
Wean oxygen slowly
Serial chest x-ray
Encourage OOB
Assessment / Plan
Assessment / Plan
#Acute hypoxic respiratory failure
#Sepsis with strep pneumo bacteremia
#Severe influenza A infection
-Likely postviral/superimposed bacterial pneumonia with S. pneumoniae; (+) strep Ag
-Has required high flow oxygen while here, up to 55L but has not required intubation
-Status post Tamiflu, vancomycin, azithromycin, IV steroid regimen for above issues
-Had worsening with improvement of his white cell count likely with immune reactivation
-Remains on IV ceftriaxone 2 g every day, day 8 of ceftriaxone therapy
-Chest x-rays showing interval improvement over subsequent days
-Low suspicion for ARDS as CXR infiltrates improved
-Currently on 55 L high flow with SpO2 100%
Plan
-Continue IV ceftriaxone 2 g daily
-Continue with pulmonary toileting, chest physiotherapy
-Continue Ativan IV 1 mg as needed for anxiety
-Continue morphine IV 2 mg as needed for pleuritic pain
-Trend CBC, temperature curve, BMP
-SpO2 goal >90%
#Acute metabolic encephalopathy
-Likely multifactorial with ongoing hypoxemia, sepsis, component of hospital delirium and steroid effect
-Steroids were discontinued on 01/10 into 01/11 due to his worsening mental status
-Suspect that this will continue to improve with correction of the underlying issues above
-Had CT head without contrast on 01/10 that was unremarkable
-Monitor mental status
#Anxiety
-Has significant anxiety about his condition, being away from his home
-Suspect that this is interfering with his capacity to take deep breaths
-Spoke with pulmonology and ID, starting low-dose Ativan as above
-Continue with home Lexapro
#Leukocytosis
-Likely secondary to demargination from steroid as well as infection
-Was leukopenic/neutropenic prior
-Trend CBC on above antibiotic course
#Profound neutropenia (resolved)
#Thrombocytopenia
#Multifactorial pancytopenia
#Folate deficiency
-Suspect that this is consumptive process with severe infection
-No known underlying bone marrow disorders or vitamin deficiencies
-Start IV folate daily, plan for oral after
-Educated patient on proper diet, encouraged a banana daily
#Hypoalbuminemia
-Albumin level was down to 2.2, has improved up to 2.9 on last check
-May be related to illness, however patient is young and without significant comorbidity
#S/p septic shock
-Has been titrated off Levophed
-Monitor vital signs off of vasopressors
-MAP goal >65 mmHg
#Acute kidney injury
-Suspect septic ATN versus prerenal insult
-Resolved
#GERD
-Continue PPI
#ADHD
-Resumed Adderall
DVT prophylaxis: subcu Lovenox
CODE STATUS: Full code
Diet: Regular
Family updated 01/06, 01/07, 01/08, 01/09, 01/11 at bedside
Discussed case with infectious disease and pulmonology
Anticipated Discharge: > 48 hours
Subjective/Interval History
-
Date of Service: January 11, 2025
Seen and examined at the bedside. Overnight developed worsening anxiety with shallow breathing and oxygen desaturation. ABG with low PaO2, high flow nasal cannula was uptitrated and patient was transferred to ICU where he remains as of this
morning. Steroids were discontinued due to possible contribution to his encephalopathy otherwise remains hemodynamically stable and afebrile.
Chest x-ray from this morning shows continued improvement. He was sleeping and comfortable, taking deep breaths with SpO2 99 to 100% with good pulse ox waveform
Denies any new complaints. His father was present at the bedside and updated, mentioned that he noticed Rafael becoming more anxious around the time he left yesterday evening
Objective Data
-
Labs:
Laboratory Results
01/11/25 01/11/25
01:08 01:58
WBC 24.2 H
Hgb 10.6 L
Hct 30.6 L
Plt Count 243 D
PT 15.8 H
INR 1.23
APTT 36.8 H
HCO3 24.5
Sodium 139
Potassium 3.7
Chloride 105
Carbon Dioxide 26
BUN 16
Creatinine 0.6 L
Glucose 105 H
Calcium 7.8 L
Vital Signs:
Vital Signs
Temp Pulse Resp BP Pulse Ox
97.6 F 71 22 151/88 99
01/11/25 02:01 01/11/25 08:00 01/11/25 08:00 01/11/25 08:00 01/11/25 10:35
I&O
01/10/25 01/11/25 01/12/25
06:59 06:59 06:59
Intake Total 100 / 100 2308.2 / 2319.9 416.8 / 416.8
Output Total 500 / 500
Balance 100 / 100 1808.2 / 1819.9 416.8 / 416.8
Review of Systems
-
History Source: Patient
All other systems: Reviewed and negative
Physical Exam
-
General: Well Developed, No Apparent Distress and Other (Thin male)
HEENT: Normocephalic, Atraumatic and Moist Mucous Membranes
Respiratory: Clear to Auscultation and Non Labored Respirations; Negative Wheezes, Rales, Rhonchi or Accessory Resp Muscle Use
Cardiac: Regular Rhythm and S1/S2; Negative Murmur, Rub or Gallop
GI: Soft, Nontender, Nondistended and Normal Bowel Sounds
Musculoskeletal: No Clubbing, No Cyanosis and No Edema
Skin: Warm, Dry and Normal Turgor; Negative Rash
Neuro: AO x 3 and Nonfocal/Grossly Intact; Negative Tremors
Psych: Calm
Data Reviewed
-
Diagnostic Radiology: Report Reviewed by me, Discussed with Patient and Discussed with Family
Labs: Labs Reviewed by me, Discussed with Patient and Discussed with Family
[2025-01-11] MEDS: FLUSH (NSS) IV ×2 (12:13→12:58)
[2025-01-11] MEDS: ROCEPHIN 2000 MG IV (12:14)
[2025-01-11] MEDS: STERILE WATER FOR INJECTION 20 ML IV (12:15)
--- NOTE | 2025-01-11 13:50 | PTCARENOTE ---
Pt weaned down to 40L 505 at 1155, tolerated well. At 1215, Pt assisted OOB into chair, pt's O2 sat sl decreased to 88%, and pt became sl anxious. O2 increased to 40L 55%. Pt was encouraged to take slow deep breaths. Dr Levine also in room to
assess pt. Pt's O2 sat slowly came back up to 99% over 15-20 mins. Pt feeling 'good' now, O2 sat=99%. O2 setting weaned now to 40L, 45%. Pt tolerating, O2 sat=98%. Chair alarm was placed on for safety. Pt's mother in room with pt also. Lunch ordered.
--- NOTE | 2025-01-11 15:24 | PTCARENOTE ---
Pt assisted back to bed now, tolerated well for 3 hrs. Presently on high flow 40L, 50%, O2 sat=99%.
[2025-01-11] MEDS: VASOTEC 0.625 MG IV (17:26)
[2025-01-11] MEDS: LOVENOX 40 MG SC (17:27)
--- NOTE | 2025-01-11 20:07 | PTCARENOTE ---
Assumed care of pt at 1900. Received pt on Precedex infusion at 0.6mcg/kg/hr. Pt calm, RASS currently 0. Pt is A/O x3, somewhat foggy on situation and recent events but is otherwise oriented to person/place/time and is appropriate with conversation,
pleasant and cooperative with care. No c/o pain except for when taking very deep breaths. Pt on HFNC 40LPM 35% FiO2. SpO2 92-96% when at rest and quiet. When pt starts talking for awhile he will drop to 88% and takes a few min to recover. See
nursing shift assessment flowsheet for full physical assessment details. Call marroquin and personal items within reach.
[2025-01-11] MEDS: LEXAPRO 20 MG PO (21:07)
[2025-01-11] MEDS: SEROQUEL 50 MG PO (21:07)
[2025-01-12] VITALS (19 sets, daily range): BP systolic 107–160; BP diastolic 70–96; BMI 20.4
--- NOTE | 2025-01-12 01:20 | PTCARENOTE ---
Assessment unchanged. Remains on HFNC 35% 40LPM. Precedex weaned, now at 0.2mcg/kg/min, pt has been asleep since HS meds given. Bed alarm activated.
--- NOTE | 2025-01-12 05:07 | PTCARENOTE ---
Assessment unchanged. Precedex weaned off at 0300. Pt has remained calm all shift, sleeping most of the shift. SR 70s-80s on monitor. Same HFNC settings, SpO2 93%.
[2025-01-12 06:00] LABS: ALT (SGPT) 58 U/L (0-50); AST (SGOT) 45 U/L (17-59); Albumin 2.2 g/dl (3.5-5.0); Alkaline Phosphatase 139 U/L (38-126); Blood Urea Nitrogen 14 mg/dl (9-20); Calcium 7.6 mg/dl (8.4-10.2); Carbon Dioxide 25 mmol/L (22-30); Chloride 102 mmol/L (98-107); Estimated Creatinine Clearance > 125 ml/min; Glucose 82 mg/dl (70-99); Potassium 3.4 mmol/L (3.5-5.1); Sodium 134 mmol/L (135-145); Total Protein 4.6 g/dl (6.3-8.2); eGFR > 60.00
[2025-01-12 06:13] LABS: Hematocrit 29.1 % (39.0-52.0); Mean Corp Hgb Conc. 34.4 g/dL (33.0-37.0); Mean Corpuscular Hgb 30.4 pg (27.0-31.0); Mean Corpuscular Volume 88.4 fL (80.0-94.0); Platelet Count 257 10^3/uL (130-400); Red Blood Cell Count 3.29 10^6/uL (4.70-6.10); White Blood Cell Count 12.4 10^3/uL (4.8-10.8)
[2025-01-12] MEDS: DUONEB 3 ML INH ×4 (07:12→19:05)
[2025-01-12] MEDS: SODIUM CHLORIDE 3% FOR INHALATION 1 VIAL INH ×2 (07:12→19:05)
[2025-01-12] MEDS: MUCINEX 1200 MG PO ×2 (07:51→21:08)
[2025-01-12] MEDS: PROTONIX 20 MG PO (07:51)
[2025-01-12] MEDS: ADDERALL 15 MG PO ×2 (07:51→15:32)
[2025-01-12] MEDS: MORPHINE SULFATE 2 MG IV (07:51)
[2025-01-12] MEDS: TAMIFLU 75 MG PO (07:51)
--- NOTE | 2025-01-12 07:58 | W.PN.INTV ---
Today's Communication / Plan
Recommendations
Continue midflow nasal cannula flow nasal cannula and titrate O2 flow rate to maintain SpO2 >90%
Off Precedex since this morning and doing well, is calm and following all commands; continue with seroqeul at night
Increase activity as tolerated; PT/OT
Pain control for throat with phenol spray
Start short course of oxycodone + acetaminophen/ibuprofen for whole body pain/aches
Abx per ID
On 01/09 I changed decadron to solu-cortef given his severe CAP --> developed suspected steroid-induced psychosis on 01/10 - 01/11/2025 � steroids now discontinued
DuoNebs, 3% nebulized for pulmonary toilet purposes and Mucinex
Encourage mucus clearing devices
Follow radiographically occasionally (CXR on 01/10 + 01/11 shows improved PNA)
Patient has markedly improved, now on midflow nasal cannula at 4 L/min, saturating 99% and breathing comfortably. No need for ICU level care. Downgrade to telemetry. Pulmonary service will continue to follow along.
Assessment
-
44-year-old male without significant past medical history presented with shortness of breath, cough, found to have influenza as well as bilateral pneumonia-poultry vaccinator consulted for respiratory failure, pneumonia, influenza, and critical care
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
Acute agitation requiring Precedex drip, likely due to steroid-induced psychosis � now resolved and Precedex drip off since this morning
Sepsis - shock state now resolved since 01/04/2025
Multifocal CAP due to Strep pneumonia
Influenza A
Streptococcal pneumonia bacteremia
Leukocytosis
Thrombocytopenia - resolved
Lactic acidosis - now resolved since 01/04/2025
ERIC - now resolved
Hypocalcemia
Conditions present prior to admission:
Depression/anxiety
GERD
Plan
Patient had worsening anxiety and confusion overnight from 01/10-01/11, jumped out of bed, ripped all equipment off including his high flow nasal cannula, given Ativan and morphine which was not effective and he was non-directable. Wrist restraints
ordered and he continued to be anxious/hyperventilating and confused. Eventually transferred to the ICU for Precedex drip and high flow nasal cannula FiO2 raised to 100% - Head CT performed showed no acute intracranial abnormality
He has markedly improved since 01/11, now weaned off of high flow nasal cannula and on 4 L/min via midflow nasal cannula and saturating 99% and breathing comfortably
Titrate O2 flow rate to keep SpO2 at 90% or greater
Continue seroquel (started 01/11 evening) at night with low dose to help control nighttime anxiety which is likely contributing to hypoxia due to hyperventilating
Due to his depression, I try to order BuSpar but he would rather not start this at this time as he would like to try to minimize medications if possible
CXR from 01/10 showed improved pneumonia; CXR from 01/11 is similar
Given his severe CAP, he was continue on systemic steroids, was on Decadron 4 mg IV q12hr since 01/05/2025 --> given his continued high O2 requirements, on 01/09 Dr. Nuñez changed to solu-cortef 50mg IV q6hr --> he developed severe
agitation/confusion on the evening of 01/10 - 01/11/2025, requiring Precedex drip. Suspect this is steroid-induced psychosis. Steroids now discontinued; Precedex drip now off as of 01/12
Incentive spirometry-encouraged q1hr while awake
Aspiration precautions
Mucolytics with Mucinex 1200 mg twice daily
Flutter valve encouraged
Vest therapy initiated
DuoNebs as well as saline nebulizers continued to help break up mucus
Out of bed in chair encouraged.
PT/OT encouraged
Chest x-ray 01/07/2025-stable extensive bilateral pneumonia worse on the right than the left
Pain control --> continue phenol throat spray and consider lidocaine swallow if pain worsens/persists
Start a short course of oxycodone with acetaminophen/Motrin
Cultures reviewed--strep PNA
Influenza A+, Tamiflu continues per ID
Blood cultures x2 from 01/03/2025 has grown Streptococcus pneumonia
Sputum culture from 01/06/2025 has grown mold, likely a contaminant
Urine Legionella-negative
Urine strep pneumonia antigen-positive
Abx as per ID --> currently on rocephin s/p zithromax (01/03-01/08/2025)
Echocardiogram 01/06/2025-EF 50-55%, normal right ventricular size and function, no valvular disease
Trend WBC and platelet count
Transfuse as needed to keep Hb>7, plt>20k
Hematology consulted and recs appreciated
Monitor renal function-now normalized
DVT prophylaxis - LMWH
Nutrition
Increase activity/ physical + occupational therapy
Dr. York reviewed with and patient's father at the bedside 01/07/2025 as well as reviewed with hospitalist, nursing, respiratory therapy
Dr. Nuñez reviewed with and father on 01/08/[address] Nuñez reviewed with patient and family on 01/09/2025 + 01/10/2025 and spoke with the mother on 01/11/2025 + 01/12/2025
Previously: The family had requested transfer as soon as he was admitted-Dr. York and hospitalist spoke to [facility] and patient was placed into que-nonurgent as [facility] felt they could not offer anything that was not being offered here-family subsequently
requested discontinuation and thus the patient was not transferred as he was improving-subsequently family again asked for transfer-hospitalist contacted [facility]-not appropriate for transfer
Patient has markedly improved, now on midflow nasal cannula at 4 L/min, saturating 99% and breathing comfortably. No need for ICU level care. Downgrade to telemetry. Pulmonary service will continue to follow along.
Diagnostic Data:
Chest x-ray 01/03/2025-bibasilar pneumonia left greater than right
Chest x-ray 01/10/2025-moderate bilateral pneumonia, right greater than left - Improved; mild cardiomegaly - new
Chest x-ray 01/11/2025-Patchy bibasilar pneumonia, also seen on prior study. Unchanged or slightly improved compared to prior chest x-ray; No large pleural effusion on either side.
CT Head 01/11/2025- No acute intracranial abnormality noted
Total time spent today was 57 minutes for this encounter. Time includes reviewing laboratory test/imaging results, reviewing pertinent medical records, obtaining and reviewing medical history, performing an appropriate exam, ordering medications,
tests and procedures. Time also includes documentation of this encounter, coordinating patient care and communicating with other healthcare professionals. Total time does not include separately billed tests performed on this date of service.
Subjective Dataa
Subjective Data
Date of Service:
Date of Service: January 12, 2025
Chief Complaint: Traffic Coordinator Follow Up, Pulmonary Follow Up and Pneumonia Follow Up
Subjective:
Pt seen and evaluated this AM. On HFNC at 35% FiO2, 40L/min which was changed to nasal cannula at 4 L/min and he is breathing comfortably, saturating 99%. Off precedex since 9AM. He still has whole body pain/aches. Did well with Seroquel
overnight although still had woken up in the middle the night with trouble falling back asleep. I discussed his status with his mother as well as his this morning and all questions were answered. He currently denies VAZQUEZ, nausea, fevers, chills.
Review of Systems
General: Other (Negative unless mentioned above)
Objective Data
Data Reviewed
Vital Signs / I&O / Oxygen:
Vital Signs
Temp Pulse Resp BP Pulse Ox
98.6 F 79 20 135/87 100
01/12/25 03:06 01/12/25 10:12 01/12/25 10:12 01/12/25 10:12 01/12/25 10:12
Intake and Output
01/11/25 01/12/25 01/13/25
06:59 06:59 06:59
Intake Total 2308.2 / 2319.9 1415.6 / 1415.6 120 / 120
Output Total 500 / 500 1375 / 1375 950 / 950
Balance 1808.2 / 1819.9 40.6 / 40.6 -830 / -830
SaO2 100
Nasal Cannula flow liters per 35
minute
Physical Exam
General: Respiratory Distress (n), Comfortable, Chills (negative) and Sweats (negative)
HEENT: Normocephalic, Anicteric and Moist Mucous Membranes
Cardiovascular: S1-S2, Murmur (n) and Peripheral Edema (negative)
Respiratory: Wheeze (negative), Crackles (Bilateral basilar (R>L)), Rhonchi (negative), Non-Labored Respirations and Accessory Resp Muscle Use (n)
GI: Soft, Non Distended, Non Tender and Normal Bowel Sounds
Neurology: AO x 3, Tremors (negative) and Depressed
Skin: Warm, Dry, Cyanosis (n), Jaundice (n) and Rash (n)
Labs/Micro/Reports
Lab Data
01/12/25 04:55
01/12/25 04:55
Microbiology
01/06/25 18:45 Sputum Respiratory Culture - Final
Mold
01/06/25 18:45 Sputum Gram Stain - Final
[2025-01-12 08:03] LABS: % Basophils 0.4 % (0-2); % Eosinophils 0.9 % (0-6); % Immature Granulocytes 8.3 % (0-0.5); % Monocytes 2.6 % (1.7-9.3); % Neutrophils 78.8 % (42.2-75.2); Absolute Basophils 0.1 10^3/uL (0-0.2); Absolute Eosinophils 0.1 10^3/uL (0-0.7); Absolute Lymphocytes 1.1 10^3/uL (1.2-3.4); Absolute Monocytes 0.3 10^3/uL (0.1-0.6); Absolute Neutrophils 9.8 10^3/uL (1.4-6.5); Nucleated Red Blood Cells % 0 % (-)
--- NOTE | 2025-01-12 08:21 | W.PN.HOSP.TC ---
Today's Communication/Plan
-
Oxygen requirements improved
Transfer to tele
Assessment / Plan
Assessment / Plan
Physical Exam
General: Well Developed, No Apparent Distress and Other (Thin male)
HEENT: Normocephalic, Atraumatic and Moist Mucous Membranes
Respiratory: Bilateral crackles
Cardiac: Regular Rhythm and S1/S2; Negative Murmur, Rub or Gallop
GI: Soft, Nontender, Nondistended and Normal Bowel Sounds
Musculoskeletal: No Clubbing, No Cyanosis and No Edema
Skin: Warm, Dry and Normal Turgor; Negative Rash
Neuro: AO x 3 and Nonfocal/Grossly Intact; Negative Tremors
Psych: Calm
Assessment/Plan
#Acute hypoxic respiratory failure
#Sepsis with severe strep pneumo bacteremia
#Septic Shock
#Severe influenza A infection
-Likely postviral/superimposed bacterial pneumonia with S. pneumoniae; (+) strep Ag
-Has required high flow oxygen while here, up to 55L but has not required intubation
-Status post Tamiflu, vancomycin, azithromycin, IV steroid regimen for above issues
-Had worsening with improvement of his white cell count likely with immune reactivation
-Remains on IV ceftriaxone
-Chest x-rays showing interval improvement over subsequent days
-Low suspicion for ARDS as CXR infiltrates improved
-Currently on 55 L high flow with SpO2 100%
Plan
-Continue IV ceftriaxone
-Continue with pulmonary toileting, chest physiotherapy
-Continue Ativan IV 1 mg as needed for anxiety
-Continue morphine IV 2 mg as needed for pleuritic pain
-Trend CBC, temperature curve, BMP
-SpO2 goal >90%
#Acute metabolic encephalopathy - worsening anxiety and confusion overnight from 01/10-01/11, jumped out of bed, ripped all equipment off including his high flow nasal cannula, given Ativan and morphine which was not effective and he was
non-directable. Wrist restraints ordered and he continued to be anxious/hyperventilating and confused. Eventually transferred to the ICU for Precedex drip and high flow nasal cannula FiO2 raised to 100%
-Likely multifactorial with ongoing hypoxemia, sepsis, component of hospital delirium and steroid effect
-Steroids were discontinued on 01/10 into 01/11 due to his worsening mental status, did need Precedex drip for this
-Suspect that this will continue to improve with correction of the underlying issues above
-Had CT head without contrast on 01/10 that was unremarkable
-Monitor mental status
#Anxiety
-Has significant anxiety about his condition, being away from his home
-Suspect that this is interfering with his capacity to take deep breaths
-Spoke with pulmonology and ID, starting low-dose Ativan as above
-Continue with home Lexapro
#Leukocytosis
-Likely secondary to demargination from steroid as well as infection
-Was leukopenic/neutropenic prior
-Trend CBC on above antibiotic course
#Profound neutropenia (resolved)
#Thrombocytopenia
#Multifactorial pancytopenia
#Folate deficiency
-Suspect that this is consumptive process with severe infection
-No known underlying bone marrow disorders or vitamin deficiencies
-Start IV folate daily, plan for oral after
-Educated patient on proper diet, encouraged a banana daily
#Hypoalbuminemia
-May be related to illness, however patient is young and without significant comorbidity
#S/p septic shock
-Has been titrated off Levophed
-Monitor vital signs off of vasopressors
-MAP goal >65 mmHg
#Acute kidney injury
-Suspect septic ATN versus prerenal insult
-Resolved
#GERD
-Continue PPI
#ADHD
-Resumed Adderall
DVT prophylaxis: subcu Lovenox
CODE STATUS: Full code
Diet: Regular
Family updated 01/06, 01/07, 01/08, 01/09, 01/11, 01/12 at bedside
Discussed case with machine farmworker
Anticipated Discharge: > 48 hours
Subjective/Interval History
-
Date of Service: January 12, 2025
Patient was seen and examined. He reported feeling achy and tired.
Objective Data
-
Labs:
Laboratory Results
01/12/25
04:55
WBC 12.4 H
Hgb 10.0 L
Hct 29.1 L
Plt Count 257
Sodium 134 L
Potassium 3.4 L
Chloride 102
Carbon Dioxide 25
BUN 14
Creatinine 0.6 L
Glucose 82
Calcium 7.6 L
Total Bilirubin 1.0
AST 45
ALT 58 H
Alkaline Phosphatase 139 H
Vital Signs:
Vital Signs
Temp Pulse Resp BP Pulse Ox
98.6 F 81 20 151/94 97
01/12/25 03:06 01/12/25 08:00 01/12/25 08:00 01/12/25 08:00 01/12/25 08:00
I&O
01/11/25 01/12/25 01/13/25
06:59 06:59 06:59
Intake Total 2308.2 / 2319.9 1415.6 / 1415.6 120 / 120
Output Total 500 / 500 1375 / 1375 150 / 150
Balance 1808.2 / 1819.9 40.6 / 40.6 -30 / -30
[2025-01-12] MEDS: FOLVITE 50.2 MG IV (09:14)
[2025-01-12] MEDS: TYLENOL 1000 MG PO (09:37)
--- NOTE | 2025-01-12 10:12 | W.PN.ID1 ---
Date of Service
Date of Service: January 12, 2025
Today's Communication
Continue current antibiotics.
Assessment / Plan
Hypoxemic Resp Failure
-High flow O2 being weaned.
Influenza A infection (severe)
Severe Strep pneumo pneumonia with bacteremia
Leukocytosis
- Improved
Recent ERIC
-Resolved
Thrombocytopenia
-Resolved
Delirium
Recommendations:
rare mold seen in sputum - most likely a contaminant
Completed 10-day course of Tamiflu.
Continue ceftriaxone 2 gm q24 hours (d#10) - favor ongoing IV therapy given need for high flow NC
Patient has completed a 5-day course of Azithromycin - no further atypical coverage needed
steroids stopped 01/10 in the setting of anxiety
Monitor white count for continued improvement; steroids stopped by pulmonary 01/10 in the setting of anxiety
Monitor respiratory status closely. Remains on high flow O2 at this time with some interval increase in the setting of prominent anxiety. Wean as tolerated.
Continue with supportive measures.
����������������������������������������������������������
Chief Complaint
-: Pneumonia, Bacteremia and Other (Influenza)
Subjective / Review of Systems
Patient seen and examined. Remains on high flow O2 at present, although titrated down to 35 L/min.
Review of Systems: No Fever and No Chills
Vital Signs / Physical Exam
Vital Signs
Vital Signs
Temp Pulse Resp BP Pulse Ox
98.6 F 95 15 117/95 94
01/12/25 03:06 01/12/25 09:26 01/12/25 09:26 01/12/25 09:26 01/12/25 09:26
Physical Exam
Constitutional: No Acute Distress, Comfortable and Non-toxic
Cardiovascular: S1/S2; Negative S3/S4
Pulmonary: Rhonchi (Scattered throughout.), Coarse and Non Labored
Gastrointestinal: Soft, Non Tender, Non Distended and Normal Bowel Sounds
Neurological: Awake and Alert
Psychological: Calm
Objective Data
Lab Data
Lab Results
01/12/25 04:55
01/12/25 04:55
PT 15.8 Sec (11.4-14.6) H 01/11/25 01:58
INR 1.23 01/11/25 01:58
APTT 36.8 Sec (23.4-35.0) H 01/11/25 01:58
Estimated Creat Clear > 125 ml/min 01/12/25 04:55
Lactic Acid 1.4 mmol/L (0.7-2.0) 01/06/25 12:53
Total Bilirubin 1.0 mg/dl (0.2-1.3) 01/12/25 04:55
AST 45 U/L (17-59) 01/12/25 04:55
ALT 58 U/L (0-50) H 01/12/25 04:55
Alkaline Phosphatase 139 U/L (38-126) H 01/12/25 04:55
Most recent labs reviewed.
Micro Results:
01/06/25 18:45 Respiratory Culture - Final
Sputum Mold
Gram Stain - Final
01/03/25 14:24 Blood Culture - Final
Blood/Venous Streptococcus pneumoniae
Gram Stain - Final
01/03/25 14:24 Blood Culture - Final
Blood/Venous Streptococcus pneumoniae
Gram Stain - Final
01/04/25 01:21 Urine Culture - Final
Urine NO GROWTH
01/04/25 01:21 Legionella Urinary Antigen - Final
Urine Negative for Legionella pneumophila Serogroup 1 antigen.
A negative result does not rule out the possiblity of
Legionella infection due to other serogroups or species of
Legionella. Clinical correlation is recommended.
Streptococcus pneumoniae Antigen (M - Final
Positive for Strep pneumo Ag
01/03/25 14:04 Influenza Types A & B (STEVE) - Final
Nasal Swab Influenza A Positive, NAAT
Blood Culture Final 01/07/25
Streptococcus pneumoniae
Organism 1 Streptococcus pneumoniae
1. Streptococcus pneumoniae
M.I.C. RX
--------- ---
Azithromycin <=0.5 S
Ceftriaxone <=0.25 S
Meningitis:
<=0.5 Susceptible
1 Intermediate
>=2 Resistant
Non-meningitis:
<=1 Susceptible
2 Intermediate
>=4 Resistant
Clindamycin <=0.06 S
Levofloxacin 1 I
Penicillin G <=0.03 S
Meningitis:
<=0.06 Susceptible
>=0.12 Resistant
Non-meningitis:
<=2 Susceptible
4 Intermediate
>=8 Resistant
Tetracycline <=0.5 S
Trimethoprim/Sulfamethoxazole <=.25/4.7 S
Vancomycin 0.5 S
Imaging:
01/07/2025 CXR (portable): Stable extensive bilateral pneumonia (R >L)
01/05/2025 CXR (portable): There is been significant worsening of extensive bilateral pneumonia and in her development of bilateral pleural effusions since prior study.
01/03/2025 CXR (portable): Interstitial and airspace opacity is demonstrated in the infrahilar region bilaterally, extending into the lower lobes, left greater than right, consistent with pneumonia. No radiographically demonstrable pleural effusion.
No pneumothorax. No CHF. Please see full dictation for additional detail. Film personally viewed.
--- NOTE | 2025-01-12 10:15 | PTCARENOTE ---
Rec'd care of patient at 0700. Patient alert and oriented. Anxious. C/o pleural pain. Morphine administered as ordered. Tylenol administered for body aches. NSR on tele. Pulse ox 97-99% on HFNC 40L 35%. Occasional non-productive, moist cough. IS and
Acapella encouraged. [facility]. Lung sounds shallow/diminished throughout. Crackles 1/4 up posteriorly. +BS. Appetite poor. Agreeable to eat smoothie brought in by family. CC#35 on upon start of shift. Removed and urinal provided. Peripheral INTs flushed
and capped. OOB to chair at 0900. Call marroquin within reach.
--- NOTE | 2025-01-12 11:20 | PTCARENOTE ---
Patient transitioned to 4L MF by RT, pulse ox 99%.
[2025-01-12] MEDS: STERILE WATER FOR INJECTION 20 ML IV (11:33)
[2025-01-12] MEDS: ROCEPHIN 2000 MG IV (11:33)
[2025-01-12] MEDS: KLOR-CON 40 MEQ PO (11:33)
[2025-01-12] MEDS: ROXICODONE 5 MG PO ×3 (11:33→21:08)
[2025-01-12] MEDS: FLUSH (NSS) IV ×2 (11:35)
[2025-01-12 11:59] LABS: Magnesium 1.9 mg/dl (1.6-2.3); Phosphorus 3.2 mg/dl (2.5-4.5)
--- NOTE | 2025-01-12 12:00 | PTCARENOTE ---
Addendum entered by Kriss Anderson RN 01/12/25 12:10:
Potassium repleted.
Original Note:
Patient resting comfortably in chair. Slowly eating breakfast. Appetite remains poor. Ensure provided. Scheduled Rosio and Buspar ordered for pain & anxiety. Pulse ox 100% on 4L MF. Lung sounds improved. Slight crackles in b/l base. No other changes.
--- NOTE | 2025-01-12 13:58 | PTCARENOTE ---
Patient assisted to bathroom x1. Steady on feet. Pulse ox 97% on 4L MF.
--- NOTE | 2025-01-12 14:14 | PTCARENOTE ---
Patient downgraded to tele level.
[2025-01-12] MEDS: TYLENOL 650 MG PO ×2 (15:32→21:09)
[2025-01-12] MEDS: MOTRIN 200 MG PO ×2 (15:32→21:08)
--- NOTE | 2025-01-12 16:00 | TRANSFER ---
Patient transported with belongings to via wheelchair.
--- NOTE | 2025-01-12 17:45 | PTCARENOTE ---
pt transferred to from Critical care this afternoon around 1630. pt arrived via wheelchair. pt placed on tele and per patient request placed on continuous pulse ox. pt sat sitting at 98-99% on 4L midflow. VSS. pt oob to chair and has been per pt
and his father since 10 am this morning. pt aaox3 in the room, pleasant, and states no needs at this time. will continue to monitor.
[2025-01-12] MEDS: LOVENOX 40 MG SC (18:35)
--- NOTE | 2025-01-12 19:43 | W.PN.ONC2 ---
Today's Communication / Plan
-
Supportive care.
Anticipate anemia will eventually resolve along with clinical improvement.
We will monitor CBC and see patient back as needed.
Impression
Impression
- neutropenia -resolved
- thrombocytopenia - Resolved
- Anemia - attributable to acute and prolonged illness, hemoglobin stable
- respiratory failure on HF O2 today
- severe influenzae A on Tamiflu
- Strep pneumo pneumonia with bacteremia
- Septic shock
- folate deficiency
Plan
Plan
Anemia not unexpected in the setting of severe infection.
Hemoglobin was normal at 14.2 when patient was admitted, doubt underlying hematologic malignancy.
Anticipate that hemoglobin will improve as his infection improves.
We we will follow counts and see patient intermittently, please call if questions.
Subjective/Objective
Chief Complaint
Hematology follow-up of anemia and thrombocytopenia
Subjective
Admits to fatigue, generalized weakness.
Vital Signs:
Vital Signs
Temp Pulse Resp BP Pulse Ox
98.1 F 96 16 121/72 98
01/12/25 16:23 01/12/25 19:11 01/12/25 19:11 01/12/25 16:23 01/12/25 19:11
Lab Results:
Laboratory Data
WBC 12.4 10^3/uL (4.8-10.8) H 01/12/25 04:55
Hgb 10.0 g/dL (13.0-18.0) L 01/12/25 04:55
Plt Count 257 10^3/uL (130-400) 01/12/25 04:55
PT 15.8 Sec (11.4-14.6) H 01/11/25 01:58
INR 1.23 01/11/25 01:58
APTT 36.8 Sec (23.4-35.0) H 01/11/25 01:58
eGFR > 60.00 01/12/25 04:55
Physical Exam
Awake, alert, interactive
High flow nasal cannula O2 in place
Review of Systems
Review of Systems
10 point review of systems negative in detail except as per the HPI.
[2025-01-12] MEDS: LEXAPRO 20 MG PO (21:08)
[2025-01-12] MEDS: SEROQUEL 50 MG PO (21:09)
[2025-01-12] MEDS: MELATONIN 3 MG PO (21:13)
[2025-01-13] VITALS (8 sets, daily range): BP systolic 98–149; BP diastolic 67–79; PULSE 85; O2SAT 100; BMI 19.8
[2025-01-13] MEDS: SODIUM CHLORIDE 3% FOR INHALATION 1 VIAL INH (07:14)
[2025-01-13] MEDS: DUONEB 3 ML INH ×4 (07:14→19:07)
[2025-01-13 07:42] LABS: Hematocrit 30.4 % (39.0-52.0); Hemoglobin 10.2 g/dL (13.0-18.0); Mean Corp Hgb Conc. 33.6 g/dL (33.0-37.0); Mean Corpuscular Hgb 30.7 pg (27.0-31.0); Mean Corpuscular Volume 91.6 fL (80.0-94.0); Mean Platelet Volume 9.9 fL (7.4-10.4); Platelet Count 293 10^3/uL (130-400); Red Blood Cell Count 3.32 10^6/uL (4.70-6.10); Red Cell Dist. Width 13.2 % (11.5-14.5); White Blood Cell Count 10.3 10^3/uL (4.8-10.8)
[2025-01-13 08:36] LABS: ALT (SGPT) 46 U/L (0-50); AST (SGOT) 32 U/L (17-59); Albumin 2.3 g/dl (3.5-5.0); Alkaline Phosphatase 150 U/L (38-126); Blood Urea Nitrogen 11 mg/dl (9-20); Calcium 7.8 mg/dl (8.4-10.2); Carbon Dioxide 27 mmol/L (22-30); Chloride 105 mmol/L (98-107); Estimated Creatinine Clearance > 125 ml/min; Glucose 88 mg/dl (70-99); Phosphorus 3.2 mg/dl (2.5-4.5); Potassium 3.9 mmol/L (3.5-5.1); Sodium 136 mmol/L (135-145); Total Bilirubin 0.5 mg/dl (0.2-1.3); Total Protein 4.4 g/dl (6.3-8.2); eGFR > 60.00
[2025-01-13] MEDS: PROTONIX 20 MG PO (09:01)
[2025-01-13] MEDS: MUCINEX 1200 MG PO ×2 (09:01→19:43)
[2025-01-13] MEDS: ADDERALL 15 MG PO ×2 (09:01→16:38)
[2025-01-13] MEDS: FOLVITE 50.2 MG IV (09:01)
[2025-01-13] MEDS: TYLENOL 650 MG PO ×3 (09:01→21:03)
[2025-01-13] MEDS: MOTRIN 200 MG PO ×3 (09:02→21:03)
[2025-01-13] MEDS: ROXICODONE 5 MG PO ×3 (09:02→21:03)
--- NOTE | 2025-01-13 09:32 | PTCARENOTE ---
pt oob to chair x1 assist this morning. pt weaned to 3L this morning after respiratory treatment. pt sat sitting between 97-100% on the 3L. pt given ensure at bedside and encouraged to use acapella and incentive spirometer at bedside to help with
lung expansion and oxygenation. pt is aaox3 and cooperative with care. IV folic acid given through R AC access this morning for 0900 dose. pt ringing appropriately
--- NOTE | 2025-01-13 11:55 | W.PN.PUL3 ---
Today's Communication / Plan
-
Discontinue 3% saline
No need for vest therapy
Continue flutter valve
DuoNebs for now-will reassess in the next 24 hours. May not be required as the patient has a strong cough effort.
Continue wean down oxygen-currently 2 L
Patient has been transition to telemetry
Physical therapy/Occupational Therapy
Antibiotics per infectious disease
Repeat chest x-ray 01/14/2025
Will follow
Assessment
-
44-year-old male without significant past medical history presented with shortness of breath, cough, found to have influenza as well as bilateral pneumonia-home advisor consulted for respiratory failure, pneumonia, influenza, and critical care
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
Pulmonary following for hypoxemic respiratory failure/pneumonia 01/13/2025
Acute hypoxemic respiratory failure
Multifocal CAP due to Strep pneumonia
Influenza A
Streptococcal pneumonia bacteremia
Sepsis - shock state now resolved since 01/04/2025
Thrombocytopenia
Lactic acidosis - now resolved since 01/04/2025
ERIC - now resolved
Hypocalcemia
Conditions present prior to admission:
Depression/anxiety
GERD
Plan
Respiratory status improved: Currently on 2 L nasal cannula. Continue to wean off as able. Home oxygen assessment prior to discharge.
Patient feels better. Still debilitated.
Appetite is adequate.
-
CXR2 shows improved pneumonia
High flow oxygen has been discontinued.
Given his severe CAP-status post steroids. Discontinued on 01/10/2025 due to change in mental status/anxiety.
-
Continue secretion clearance interventions:
Incentive spirometry-encouraged q1hr while awake
Mucolytics with Mucinex 1200 mg twice daily
Flutter valve encouraged
Discontinue vest.
Discontinue 3% saline.
DuoNebs 4 times a day for now. If he continues to improve and has a strong cough effort will transition to as needed in the next 24 hours.
Out of bed in chair encouraged.
Chest x-ray 01/07/2025-stable extensive bilateral pneumonia worse on the right than the left
-
Severe bilateral pneumonia:
Cultures reviewed--strep PNA
Influenza A+, Tamiflu continues per ID
Blood cultures x2 from 01/03/2025 has grown Streptococcus pneumonia
Sputum culture from 01/06/2025 has grown mold, likely a contaminant
Urine Legionella-negative
Urine strep pneumonia antigen-positive
Abx as per ID --> currently on rocephin day 10 on 01/13/2025.
s/p zithromax (01/03-01/08/2025)
Repeat chest x-ray 01/13/2025.
Radiographic follow-up will be needed in the outpatient setting.
Echocardiogram 01/06/2025-EF 50-55%,, normal right ventricular size and function, no valvular disease
Leukocytosis resolving.
Afebrile.
-
Anemia noted-possibly of critical illness. Hematology following the patient.
Follow CBC
DVT prophylaxis - LMWH
Physical therapy/Occupational Therapy as able.
Dr. York reviewed with and patient's father at the bedside 01/07/2025 as well as reviewed with hospitalist, nursing, respiratory therapy
Dr. Nuñez reviewed with and father on 01/08/[address] Nuñez reviewed with patient and family on 01/09/2025 + 01/10/2025
Previously: The family had requested transfer as soon as he was admitted-Dr. York and hospitalist spoke to [facility] and patient was placed into que-nonurgent as [facility] felt they could not offer anything that was not being offered here-family subsequently
requested discontinuation and thus the patient was not transferred as he was improving-subsequently family again asked for transfer-hospitalist contacted [facility]-not appropriate for transfer
Pulmonary service will continue to follow along
Diagnostic Data:
Chest x-ray 01/03/2025-bibasilar pneumonia left greater than right
Chest x-ray 01/10/2025-moderate bilateral pneumonia, right greater than left - Improved; mild cardiomegaly - new
Subjective Data
-
Date of Service:
Date of Service: January 13, 2025
Chief Complaint: Pulmonary Follow Up (Pneumonia) and Dyspnea Follow Up
Subjective:
No new complaints
Oxygenation improved
Denies increased phlegm production or hemoptysis
Denies chest pain
Review of Systems
Cardiopulmonary: Dyspnea and Dyspnea on Exertion
Objective Data
Data Reviewed
Vital Signs / I&O / Oxygen:
Vital Signs
Temp Pulse Resp BP Pulse Ox
98.4 F 86 18 128/74 99
01/13/25 08:27 01/13/25 11:15 01/13/25 11:15 01/13/25 08:27 01/13/25 11:36
Intake and Output
01/12/25 01/13/25 01/14/25
06:59 06:59 06:59
Intake Total 1415.6 / 1415.6 1800 / 1800
Output Total 1375 / 1375 950 / 950
Balance 40.6 / 40.6 850 / 850
SaO2 99
Nasal Cannula flow liters per 2
minute
Physical Exam
General: Respiratory Distress (n), Comfortable, Chills (n) and Sweats (n)
HEENT: Normocephalic and Anicteric
Cardiovascular: S1-S2 and Peripheral Edema (negative)
Respiratory: Wheeze (negative), Crackles (Bibasilar), Rhonchi (Expiratory), Non-Labored Respirations, Accessory Resp Muscle Use (n) and Stridor (n)
GI: Soft, Non Distended, Non Tender and Normal Bowel Sounds
Neurology: AO x 3 and Tremors (negative)
Skin: Warm, Dry, Cyanosis (n) and Jaundice (n)
Labs/Micro/Reports
Lab Data
01/13/25 07:14
01/13/25 07:14
Microbiology
01/06/25 18:45 Sputum Respiratory Culture - Final
Mold
01/06/25 18:45 Sputum Gram Stain - Final
[2025-01-13] MEDS: ROCEPHIN 2000 MG IV (12:13)
[2025-01-13] MEDS: STERILE WATER FOR INJECTION 20 ML IV (12:15)
[2025-01-13] MEDS: TYLENOL 1000 MG PO (12:28)
--- NOTE | 2025-01-13 12:47 | W.PN.UPDATE ---
Update Note
Progress Note Update
Of note, from the pulmonary perspective. Patient does not need continuous pulse oximetry monitoring. Currently on 2 L. Ambulated with physical therapy without oxygen desaturation.
--- NOTE | 2025-01-13 13:00 | W.PN.ID1 ---
Date of Service
Date of Service: January 13, 2025
Today's Communication
Continue antibiotics. Transition to oral cefdinir to complete course.
Assessment / Plan
Hypoxemic Resp Failure
-High flow O2 being weaned.
Influenza A infection (severe)
Severe Strep pneumo pneumonia with bacteremia
Leukocytosis
- Improved
Recent ERIC
-Resolved
Thrombocytopenia
-Resolved
Delirium
Recommendations:
rare mold seen in sputum - most likely a contaminant
Completed 10-day course of Tamiflu on 01/12
Currently ceftriaxone 2 gm q24 hours (d#11)
Patient has completed a 5-day course of Azithromycin - no further atypical coverage needed
steroids stopped 01/10 in the setting of anxiety
White count normalized.
Will transition to cefdinir, to complete a 14-day course.
����������������������������������������������������������
Chief Complaint
-: Pneumonia, Bacteremia and Other (Influenza)
Subjective / Review of Systems
Patient seen and examined. Has been moved from IMU to [facility]. Currently on 2 L nasal cannula, and feeling well. Denies specific complaints at present. Feels weak, but walked with PT today and did well.
Review of Systems: No Fever and No Chills
Vital Signs / Physical Exam
Vital Signs
Vital Signs
Temp Pulse Resp BP Pulse Ox
98.3 F 86 18 98/67 99
01/13/25 11:05 01/13/25 11:15 01/13/25 11:15 01/13/25 11:05 01/13/25 11:36
Physical Exam
Constitutional: No Acute Distress, Comfortable and Non-toxic
Eyes: Sclera Anicteric
Cardiovascular: Regular Rate and S1/S2; Negative S3/S4
Pulmonary: Symmetric, Coarse and Non Labored
Gastrointestinal: Soft, Non Tender, Non Distended and Normal Bowel Sounds
Neurological: Awake and Alert
Psychological: Calm
Objective Data
Lab Data
Lab Results
01/13/25 07:14
01/13/25 07:14
PT 15.8 Sec (11.4-14.6) H 01/11/25 01:58
INR 1.23 01/11/25 01:58
APTT 36.8 Sec (23.4-35.0) H 01/11/25 01:58
Estimated Creat Clear > 125 ml/min 01/13/25 07:14
Lactic Acid 1.4 mmol/L (0.7-2.0) 01/06/25 12:53
Total Bilirubin 0.5 mg/dl (0.2-1.3) 01/13/25 07:14
AST 32 U/L (17-59) 01/13/25 07:14
ALT 46 U/L (0-50) 01/13/25 07:14
Alkaline Phosphatase 150 U/L (38-126) H 01/13/25 07:14
Most recent labs reviewed.
Micro Results:
01/06/25 18:45 Respiratory Culture - Final
Sputum Mold
Gram Stain - Final
01/03/25 14:24 Blood Culture - Final
Blood/Venous Streptococcus pneumoniae
Gram Stain - Final
01/03/25 14:24 Blood Culture - Final
Blood/Venous Streptococcus pneumoniae
Gram Stain - Final
01/04/25 01:21 Urine Culture - Final
Urine NO GROWTH
01/04/25 01:21 Legionella Urinary Antigen - Final
Urine Negative for Legionella pneumophila Serogroup 1 antigen.
A negative result does not rule out the possiblity of
Legionella infection due to other serogroups or species of
Legionella. Clinical correlation is recommended.
Streptococcus pneumoniae Antigen (M - Final
Positive for Strep pneumo Ag
01/03/25 14:04 Influenza Types A & B (STEVE) - Final
Nasal Swab Influenza A Positive, NAAT
Blood Culture Final 01/07/25
Streptococcus pneumoniae
Organism 1 Streptococcus pneumoniae
1. Streptococcus pneumoniae
M.I.C. RX
--------- ---
Azithromycin <=0.5 S
Ceftriaxone <=0.25 S
Meningitis:
<=0.5 Susceptible
1 Intermediate
>=2 Resistant
Non-meningitis:
<=1 Susceptible
2 Intermediate
>=4 Resistant
Clindamycin <=0.06 S
Levofloxacin 1 I
Penicillin G <=0.03 S
Meningitis:
<=0.06 Susceptible
>=0.12 Resistant
Non-meningitis:
<=2 Susceptible
4 Intermediate
>=8 Resistant
Tetracycline <=0.5 S
Trimethoprim/Sulfamethoxazole <=.25/4.7 S
Vancomycin 0.5 S
Imaging:
01/07/2025 CXR (portable): Stable extensive bilateral pneumonia (R >L)
01/05/2025 CXR (portable): There is been significant worsening of extensive bilateral pneumonia and in her development of bilateral pleural effusions since prior study.
01/03/2025 CXR (portable): Interstitial and airspace opacity is demonstrated in the infrahilar region bilaterally, extending into the lower lobes, left greater than right, consistent with pneumonia. No radiographically demonstrable pleural effusion.
No pneumothorax. No CHF. Please see full dictation for additional detail. Film personally viewed.
Care Review
Plan reviewed with: Physician (Pulmonary)
[2025-01-13] MEDS: MORPHINE SULFATE 2 MG IV (13:29)
--- NOTE | 2025-01-13 13:36 | W.PN.HOSP.TC ---
Today's Communication/Plan
-
Doing better
See plan
Assessment / Plan
Assessment / Plan
Physical Exam
General: Well Developed, No Apparent Distress and Other (Thin male)
HEENT: Normocephalic, Atraumatic and Moist Mucous Membranes
Respiratory: Bilateral crackles
Cardiac: Regular Rhythm and S1/S2; Negative Murmur, Rub or Gallop
GI: Soft, Nontender, Nondistended and Normal Bowel Sounds
Musculoskeletal: No Clubbing, No Cyanosis and No Edema
Skin: Warm, Dry and Normal Turgor; Negative Rash
Neuro: AO x 3 and Nonfocal/Grossly Intact; Negative Tremors
Psych: Calm
Assessment/Plan
#Acute hypoxic respiratory failure
#Sepsis with severe strep pneumo bacteremia
#Multifocal CAP due to Strep pneumonia
#Septic Shock
#Severe influenza A infection
#Lactic acidosis - now resolved since 01/04/2025
-Likely postviral/superimposed bacterial pneumonia with S. pneumoniae; (+) strep Ag
-Has required high flow oxygen while here, up to 55L but has not required intubation
-Status post Tamiflu, vancomycin, azithromycin, IV steroid regimen for above issues
-Currently on 2 L nasal cannula oxygen, previously was on 55 L high flow with SpO2 100%
Plan
-Transition to cefdinir (from Ceftriaxone), to complete a 14-day course
-Continue with pulmonary toileting, chest physiotherapy
-Continue Ativan IV 1 mg as needed for anxiety
-Continue morphine IV 2 mg as needed for pleuritic pain
-Trend CBC, temperature curve, BMP
-SpO2 goal >90%
-Incentive spirometry-encouraged q1hr while awake. Flutter Valve.
-Mucinex 1200 mg twice daily
-No more Vest and 3% saline
-Scheduled DuoNebs 4 times a day for now -- if patient continues to improve and has a strong cough effort, switch to prn bronchodilators in the next 24 hours.
-Out of bed in chair encouraged.
-Continue to wean oxygen off as able.
-Home oxygen assessment prior to discharge.
-Radiographic follow-up will be needed in the outpatient setting.
#Acute metabolic encephalopathy - worsening anxiety and confusion overnight from 01/10-01/11, jumped out of bed, ripped all equipment off including his high flow nasal cannula, given Ativan and morphine which was not effective and he was
non-directable. Wrist restraints ordered and he continued to be anxious/hyperventilating and confused. Eventually transferred to the ICU for Precedex drip and high flow nasal cannula FiO2 raised to 100%
-Likely multifactorial with ongoing hypoxemia, sepsis, component of hospital delirium and steroid effect
-Steroids were discontinued on 01/10 into 01/11 due to his worsening mental status, did need Precedex drip for this
-Suspect that this will continue to improve with correction of the underlying issues above
-Had CT head without contrast on 01/10 that was unremarkable
-Monitor mental status
#Anxiety
-Has significant anxiety about his condition, being away from his home
-Suspect that this is interfering with his capacity to take deep breaths
-Spoke with pulmonology and ID, starting low-dose Ativan as above
-Continue with home Lexapro
#Leukocytosis
-Likely secondary to demargination from steroid as well as infection
-Was leukopenic/neutropenic prior
-Trend CBC on above antibiotic course
#Profound neutropenia (resolved)
#Thrombocytopenia - RESOLVED
#Multifactorial pancytopenia
#Folate deficiency
-Suspect that this is consumptive process with severe infection
-No known underlying bone marrow disorders or vitamin deficiencies
-Start IV folate daily, plan for oral after
-Educated patient on proper diet, encouraged a banana daily
#Hypoalbuminemia
-May be related to illness, however patient is young and without significant comorbidity
#S/p septic shock
-Has been titrated off Levophed
-Monitor vital signs off of vasopressors
-MAP goal >65 mmHg
#Acute kidney injury
-Suspect septic ATN versus prerenal insult
-Resolved
#GERD
-Continue PPI
#ADHD
-Resumed Adderall
DVT prophylaxis: subcu Lovenox
CODE STATUS: Full code
Diet: Regular
Family updated 01/06, 01/07, 01/08, 01/09, 01/11, 01/12 at bedside
Anticipated Discharge: 24 - 48 hours
Subjective/Interval History
-
Date of Service: January 13, 2025
Patient was seen and examined. He reported feeling better, was sitting up in chair.
Objective Data
-
Labs:
Laboratory Results
01/13/25
07:14
WBC 10.3
Hgb 10.2 L
Hct 30.4 L
Plt Count 293
Sodium 136
Potassium 3.9
Chloride 105
Carbon Dioxide 27
BUN 11
Creatinine 0.6 L
Glucose 88
Calcium 7.8 L
Total Bilirubin 0.5
AST 32
ALT 46
Alkaline Phosphatase 150 H
Vital Signs:
Vital Signs
Temp Pulse Resp BP Pulse Ox
98.3 F 86 18 98/67 99
01/13/25 11:05 01/13/25 11:15 01/13/25 11:15 01/13/25 11:05 01/13/25 11:36
I&O
01/12/25 01/13/25 01/14/25
06:59 06:59 06:59
Intake Total 1415.6 / 1415.6 1800 / 1800
Output Total 1375 / 1375 950 / 950
Balance 40.6 / 40.6 850 / 850
--- NOTE | 2025-01-13 14:19 | CM ---
Reviewed the chart notes. Patient continues on supplemental O2 currently on 2L/min. CM continues to be available to patient/family and is monitoring medical plan for needs at discharge.
Plan: Discharge to home when medically stable. If unable to wean from O2 home assessment would be needed.
[2025-01-13] MEDS: LOVENOX 40 MG SC (18:07)
--- NOTE | 2025-01-13 18:16 | PTCARENOTE ---
takes 15mg of adderall at 1700. he took his 1600 pills and when going to take the adderall only said he was taking half and refused to take the other 7.5mg because he doesnt want to be up all night. this nurse had an additional nurse witness the
waste of half the tab. was made aware of this and encouraged to adjust the dose for the evening if pt is not discharged tomorrow. aware.
[2025-01-13] MEDS: OMNICEF 300 MG PO (19:43)
[2025-01-13] MEDS: LEXAPRO 20 MG PO (21:02)
[2025-01-13] MEDS: SEROQUEL 50 MG PO (21:03)
[2025-01-14 03:23] VITALS: BP 138/85
[2025-01-14 05:45] VITALS: BMI 19.5
[2025-01-14] MEDS: DUONEB 3 ML INH (07:10)
[2025-01-14 07:39] LABS: Hematocrit 28.7 % (39.0-52.0); Hemoglobin 10.1 g/dL (13.0-18.0); Mean Corp Hgb Conc. 35.2 g/dL (33.0-37.0); Mean Corpuscular Hgb 30.9 pg (27.0-31.0); Mean Corpuscular Volume 87.8 fL (80.0-94.0); Mean Platelet Volume 9.9 fL (7.4-10.4); Platelet Count 360 10^3/uL (130-400); Red Blood Cell Count 3.27 10^6/uL (4.70-6.10); White Blood Cell Count 8.7 10^3/uL (4.8-10.8)
[2025-01-14 07:41] LABS: ALT (SGPT) 40 U/L (0-50); AST (SGOT) 29 U/L (17-59); Albumin 2.5 g/dl (3.5-5.0); Alkaline Phosphatase 153 U/L (38-126); Blood Urea Nitrogen 10 mg/dl (9-20); Calcium 8.1 mg/dl (8.4-10.2); Carbon Dioxide 23 mmol/L (22-30); Chloride 105 mmol/L (98-107); Estimated Creatinine Clearance > 125 ml/min; Glucose 85 mg/dl (70-99); Potassium 4.5 mmol/L (3.5-5.1); Sodium 134 mmol/L (135-145); Total Bilirubin 0.7 mg/dl (0.2-1.3); Total Protein 4.9 g/dl (6.3-8.2); eGFR > 60.00
[2025-01-14 08:32] VITALS: BP 126/80
[2025-01-14] MEDS: TYLENOL 650 MG PO (08:33)
[2025-01-14] MEDS: ROXICODONE 5 MG PO (08:33)
[2025-01-14] MEDS: PROTONIX 20 MG PO (08:33)
[2025-01-14] MEDS: OMNICEF 300 MG PO (08:33)
[2025-01-14] MEDS: FOLVITE 50.2 MG IV (08:33)
[2025-01-14] MEDS: MOTRIN 200 MG PO ×2 (08:33→14:58)
[2025-01-14] MEDS: ADDERALL 15 MG PO (08:33)
[2025-01-14] MEDS: MUCINEX 1200 MG PO (08:33)
[2025-01-14] MEDS: DUONEB INH ×2 (11:15→15:20)
[2025-01-14 11:24] VITALS: BP 140/69
--- NOTE | 2025-01-14 12:41 | W.PN.ID1 ---
Date of Service
Date of Service: January 14, 2025
Today's Communication
Continue antibiotics.
Assessment / Plan
Hypoxemic Resp Failure
-High flow O2 being weaned.
Influenza A infection (severe)
Severe Strep pneumo pneumonia with bacteremia
Leukocytosis
- Improved
Recent ERIC
-Resolved
Thrombocytopenia
-Resolved
Delirium
Recommendations:
rare mold seen in sputum - most likely a contaminant
Completed 10-day course of Tamiflu on 01/12
Patient has completed a 5-day course of Azithromycin - no further atypical coverage needed
steroids stopped 01/10 in the setting of anxiety
White count normalized.
Continue cefdinir for an additional 2 days then discontinue antibiotics.
Follow-up chest x-ray in 4 to 6 weeks.
����������������������������������������������������������
Chief Complaint
-: Pneumonia, Bacteremia and Other (Influenza)
Subjective / Review of Systems
Patient seen and examined. Reports feeling well. Breathing is comfortable, and now off of supplemental O2.
Review of Systems: No Fever and No Chills
Vital Signs / Physical Exam
Vital Signs
Vital Signs
Temp Pulse Resp BP Pulse Ox
98.2 F 67 18 140/69 96
01/14/25 11:24 01/14/25 11:24 01/14/25 11:24 01/14/25 11:24 01/14/25 11:24
Physical Exam
Constitutional: No Acute Distress, Comfortable and Non-toxic
Eyes: Sclera Anicteric
Pulmonary: Non Labored
Gastrointestinal: Non Distended
Neurological: Awake and Alert
Psychological: Calm
Objective Data
Lab Data
Lab Results
01/14/25 06:42
01/14/25 06:42
PT 15.8 Sec (11.4-14.6) H 01/11/25 01:58
INR 1.23 01/11/25 01:58
APTT 36.8 Sec (23.4-35.0) H 01/11/25 01:58
Estimated Creat Clear > 125 ml/min 01/14/25 06:42
Lactic Acid 1.4 mmol/L (0.7-2.0) 01/06/25 12:53
Total Bilirubin 0.7 mg/dl (0.2-1.3) 01/14/25 06:42
AST 29 U/L (17-59) 01/14/25 06:42
ALT 40 U/L (0-50) 01/14/25 06:42
Alkaline Phosphatase 153 U/L (38-126) H 01/14/25 06:42
Most recent labs reviewed.
Chest X-Ray: Image Reviewed and Report Reviewed
Micro Results:
01/06/25 18:45 Respiratory Culture - Final
Sputum Mold
Gram Stain - Final
01/03/25 14:24 Blood Culture - Final
Blood/Venous Streptococcus pneumoniae
Gram Stain - Final
01/03/25 14:24 Blood Culture - Final
Blood/Venous Streptococcus pneumoniae
Gram Stain - Final
01/04/25 01:21 Urine Culture - Final
Urine NO GROWTH
01/04/25 01:21 Legionella Urinary Antigen - Final
Urine Negative for Legionella pneumophila Serogroup 1 antigen.
A negative result does not rule out the possiblity of
Legionella infection due to other serogroups or species of
Legionella. Clinical correlation is recommended.
Streptococcus pneumoniae Antigen (M - Final
Positive for Strep pneumo Ag
01/03/25 14:04 Influenza Types A & B (STEVE) - Final
Nasal Swab Influenza A Positive, NAAT
Blood Culture Final 01/07/25-851
Streptococcus pneumoniae
Organism 1 Streptococcus pneumoniae
1. Streptococcus pneumoniae
M.I.C. RX
--------- ---
Azithromycin <=0.5 S
Ceftriaxone <=0.25 S
Meningitis:
<=0.5 Susceptible
1 Intermediate
>=2 Resistant
Non-meningitis:
<=1 Susceptible
2 Intermediate
>=4 Resistant
Clindamycin <=0.06 S
Levofloxacin 1 I
Penicillin G <=0.03 S
Meningitis:
<=0.06 Susceptible
>=0.12 Resistant
Non-meningitis:
<=2 Susceptible
4 Intermediate
>=8 Resistant
Tetracycline <=0.5 S
Trimethoprim/Sulfamethoxazole <=.25/4.7 S
Vancomycin 0.5 S
Imaging:
01/07/2025 CXR (portable): Stable extensive bilateral pneumonia (R >L)
01/05/2025 CXR (portable): There is been significant worsening of extensive bilateral pneumonia and in her development of bilateral pleural effusions since prior study.
01/03/2025 CXR (portable): Interstitial and airspace opacity is demonstrated in the infrahilar region bilaterally, extending into the lower lobes, left greater than right, consistent with pneumonia. No radiographically demonstrable pleural effusion.
No pneumothorax. No CHF. Please see full dictation for additional detail. Film personally viewed.
--- NOTE | 2025-01-14 13:03 | W.PN.HOSP.TC ---
Today's Communication/Plan
-
Discharge today
Assessment / Plan
Assessment / Plan
Physical Exam
General: Well Developed, No Apparent Distress and Other (Thin male)
HEENT: Normocephalic, Atraumatic and Moist Mucous Membranes
Respiratory: Bilateral crackles
Cardiac: Regular Rhythm and S1/S2; Negative Murmur, Rub or Gallop
GI: Soft, Nontender, Nondistended and Normal Bowel Sounds
Musculoskeletal: No Clubbing, No Cyanosis and No Edema
Skin: Warm, Dry and Normal Turgor; Negative Rash
Neuro: AO x 3 and Nonfocal/Grossly Intact; Negative Tremors
Psych: Calm
Assessment/Plan
#Acute hypoxic respiratory failure - RESOLVED
#Sepsis with severe strep pneumo bacteremia
#Multifocal CAP due to Strep pneumonia
#Septic Shock
#Severe influenza A infection
#Lactic acidosis - now resolved since 01/04/2025
-Likely postviral/superimposed bacterial pneumonia with S. pneumoniae; (+) strep Ag
-Has required high flow oxygen while here, up to 55L but has not required intubation
-Status post Tamiflu, vancomycin, azithromycin, IV steroid regimen for above issues
-Currently on ROOM AIR -- previously was on 2 L nasal cannula oxygen, and before that, was on 55 L high flow with SpO2 100%
Plan
-Continue cefdinir for an additional 2 days then discontinue antibiotics.
-Follow-up chest x-ray in 4 to 6 weeks.
-Continue with pulmonary toileting, chest physiotherapy
-Continue Ativan IV 1 mg as needed for anxiety
-Continue morphine IV 2 mg as needed for pleuritic pain
-Trend CBC, temperature curve, BMP
-SpO2 goal >90%
-Incentive spirometry-encouraged q1hr while awake. Flutter Valve.
-No steroids
-Mucinex 1200 mg twice daily
-No more Vest and 3% saline
-Scheduled DuoNebs 4 times a day for now -- if patient continues to improve and has a strong cough effort, switch to prn bronchodilators
-Out of bed in chair encouraged.
-Home oxygen assessment: no home oxygen needed
-Radiographic follow-up will be needed in the outpatient setting.
#Acute metabolic encephalopathy - worsening anxiety and confusion overnight from 01/10-01/11, jumped out of bed, ripped all equipment off including his high flow nasal cannula, given Ativan and morphine which was not effective and he was
non-directable. Wrist restraints ordered and he continued to be anxious/hyperventilating and confused. Eventually transferred to the ICU for Precedex drip and high flow nasal cannula FiO2 raised to 100%
-Likely multifactorial with ongoing hypoxemia, sepsis, component of hospital delirium and steroid effect
-Steroids were discontinued on 01/10 into 01/11 due to his worsening mental status, did need Precedex drip for this
-Suspect that this will continue to improve with correction of the underlying issues above
-Had CT head without contrast on 01/10 that was unremarkable
-Monitor mental status
#Anxiety
-Has significant anxiety about his condition, being away from his home
-Suspect that this is interfering with his capacity to take deep breaths
-Spoke with pulmonology and ID, starting low-dose Ativan as above
-Continue with home Lexapro
#Leukocytosis - RESOLVED
-Likely secondary to demargination from steroid as well as infection
-Was leukopenic/neutropenic prior
-Trend CBC on above antibiotic course
#Profound neutropenia (resolved)
#Thrombocytopenia - RESOLVED
#Multifactorial pancytopenia
#Folate deficiency
-Suspect that this is consumptive process with severe infection
-No known underlying bone marrow disorders or vitamin deficiencies
-Start IV folate daily, plan for oral after
-Educated patient on proper diet, encouraged a banana daily
#Hypoalbuminemia
-May be related to illness, however patient is young and without significant comorbidity
#S/p septic shock
-Has been titrated off Levophed
-Monitor vital signs off of vasopressors
-MAP goal >65 mmHg
#Acute kidney injury - RESOLVED
-Suspect septic ATN versus prerenal insult
-Resolved
#GERD
-Continue PPI
#ADHD
-Resumed Adderall
DVT prophylaxis: subcu Lovenox
CODE STATUS: Full code
Diet: Regular
Family updated 01/06, 01/07, 01/08, 01/09, 01/11, 01/12 at bedside
More than 30 minutes spent in discharge including
Final examination of the patient
Summarizing hospital stay
Instructions for continuing care to all relevant caregivers
Preparation of discharge records, prescriptions, and referral forms
Total time spent (in minutes): 38
Anticipated Discharge: Today
Subjective/Interval History
-
Date of Service: January 14, 2025
Patient was seen and examined. He reported feeling better today, and mentioned that he is looking forward to going home today.
Objective Data
-
Labs:
Laboratory Results
01/14/25
06:42
WBC 8.7
Hgb 10.1 L
Hct 28.7 L
Plt Count 360 D
Sodium 134 L
Potassium 4.5
Chloride 105
Carbon Dioxide 23
BUN 10
Creatinine 0.6 L
Glucose 85
Calcium 8.1 L
Total Bilirubin 0.7
AST 29
ALT 40
Alkaline Phosphatase 153 H
Vital Signs:
Vital Signs
Temp Pulse Resp BP Pulse Ox
98.2 F 67 18 140/69 96
01/14/25 11:24 01/14/25 11:24 01/14/25 11:24 01/14/25 11:24 01/14/25 11:24
I&O
01/13/25 01/14/25 01/15/25
06:59 06:59 06:59
Intake Total 1800 / 1800 1620 / 1620
Output Total 950 / 950 725 / 725
Balance 850 / 850 895 / 895
--- NOTE | 2025-01-14 13:19 | CM ---
Reviewed the chart notes and spoke with the patient at the bedside. Patient is off supplemental O2. CM continues to be available to patient/family and is monitoring medical plan for needs at discharge.
Plan: Discharge to home when medically stable. Patient's mother will provide transportation home.
[2025-01-14] MEDS: TYLENOL 1000 MG PO (13:21)
--- NOTE | 2025-01-14 13:27 | W.PN.PUL3 ---
Today's Communication / Plan
-
Complete oral antibiotic
Outpatient pulmonary follow-up
Patient understand he will need repeat chest x-ray in about 4 to 6 weeks
Information left in the chart to follow-up
Sign off
Assessment
-
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
Pulmonary following for hypoxemic respiratory failure/pneumonia 01/13/2025
Acute hypoxemic respiratory failure
Multifocal CAP due to Strep pneumonia
Influenza A
Streptococcal pneumonia bacteremia
Sepsis - shock state now resolved since 01/04/2025
Thrombocytopenia
Lactic acidosis - now resolved since 01/04/2025
ERIC - now resolved
Hypocalcemia
Conditions present prior to admission:
Depression/anxiety
GERD
Plan
Oxygen has been weaned off
Clinically improved
Comfortably sitting out of bed
Tolerating diet
Appetite is adequate.
-
CX01/11/2025 shows improved pneumonia
Given his severe CAP-status post steroids. Discontinued on 01/10/2025 due to change in mental status/anxiety.
-
Increase activity as tolerated at home
No need for nebulizers or inhalers at discharge
Patient advised to increase physical activity as tolerated.
Chest x-ray 01/07/2025-stable extensive bilateral pneumonia worse on the right than the left
-
Leukocytosis resolved
Afebrile.
Severe bilateral pneumonia:
Cultures reviewed--strep PNA
Influenza A+, Tamiflu continues per ID
Blood cultures x2 from 01/03/2025 has grown Streptococcus pneumonia
Sputum culture from 01/06/2025 has grown mold, likely a contaminant
Urine Legionella-negative
Urine strep pneumonia antigen-positive
Abx as per ID --> transitioned to oral antibiotics for few more days.
chest x-ray 01/13/2025. Bilateral consolidations still present.
Patient explained that this will take 4 to 6 weeks to clear or longer.
Radiographic follow-up will be needed in the outpatient setting. Information is left in discharge to follow-up in our office.
Echocardiogram 01/06/2025-EF 50-55%,, normal right ventricular size and function, no valvular disease
-
Anemia noted-possibly of critical illness. Hematology following the patient.
DVT prophylaxis - LMWH
Physical therapy/Occupational Therapy as able.
Dr. York reviewed with and patient's father at the bedside 01/07/2025 as well as reviewed with hospitalist, nursing, respiratory therapy
Dr. Nuñez reviewed with and father on 01/08/[address] Nuñez reviewed with patient and family on 01/09/2025 + 01/10/2025
Dr. Schaeffer discussed with patient in detail. Information left in the chart to follow-up. He understand that he will need radiographic follow-up upon discharge.
Previously: The family had requested transfer as soon as he was admitted-Dr. York and hospitalist spoke to [facility] and patient was placed into que-nonurgent as [facility] felt they could not offer anything that was not being offered here-family subsequently
requested discontinuation and thus the patient was not transferred as he was improving-subsequently family again asked for transfer-hospitalist contacted [facility]-not appropriate for transfer
Agree with discharge planning.
Diagnostic Data:
Chest x-ray 01/03/2025-bibasilar pneumonia left greater than right
Chest x-ray 01/10/2025-moderate bilateral pneumonia, right greater than left - Improved; mild cardiomegaly - new
Subjective Data
-
Date of Service:
Date of Service: January 14, 2025
Chief Complaint: Pulmonary Follow Up (Pneumonia) and Dyspnea Follow Up
Subjective:
Feels better
Oxygen has been weaned off
Ambulating to the restroom with no significant complaints
Objective Data
Data Reviewed
Vital Signs / I&O / Oxygen:
Vital Signs
Temp Pulse Resp BP Pulse Ox
98.2 F 67 18 140/69 96
01/14/25 11:24 01/14/25 11:24 01/14/25 11:24 01/14/25 11:24 01/14/25 11:24
Intake and Output
01/13/25 01/14/25 01/15/25
06:59 06:59 06:59
Intake Total 1800 / 1800 1620 / 1620
Output Total 950 / 950 725 / 725
Balance 850 / 850 895 / 895
SaO2 96
Nasal Cannula flow liters per 2
minute
Physical Exam
General: Respiratory Distress (n), Comfortable, Chills (n) and Sweats (n)
HEENT: Normocephalic and Anicteric
Cardiovascular: S1-S2 and Peripheral Edema (negative)
Respiratory: Wheeze (negative), Crackles (Bibasilar), Rhonchi (Expiratory), Non-Labored Respirations, Accessory Resp Muscle Use (n) and Stridor (n)
GI: Soft, Non Distended, Non Tender and Normal Bowel Sounds
Neurology: AO x 3 and Tremors (negative)
Skin: Warm, Dry, Cyanosis (n) and Jaundice (n)
Labs/Micro/Reports
Lab Data
01/14/25 06:42
01/14/25 06:42
[2025-01-14 15:00] VITALS: BP 124/63
[2025-01-14 15:27] VITALS: BP 124/63
== END 2025-01-14 15:34 | disposition home or self-care (01) | DRG 871 ==
LOC: 2 NORTH 15:26
PROVIDERS: Emergency Medicine; Internal Medicine; Internal Medicine Critical Care Medicine; Nurse Practitioner Family; Nurse Practitioner Primary Care; Registered Nurse; ADMITTING PHYSICIAN Internal Medicine; ATTENDING PHYSICIAN Hospitalist; CONSULT PHYSICIAN Internal Medicine Critical Care Medicine; CONSULT PHYSICIAN Internal Medicine Infectious Disease; EMERGENCY PHYSICIAN Emergency Medicine; FAMILY PHYSICIAN Family Medicine; OTHER PHYSICIAN Internal Medicine Hematology & Oncology
PROC: 5A0935A Assistance with Respiratory Ventilation, Less than 24 Consecutive Hours, High Flow/Velocity Cannula (ICD-10-PCS; 2025-01-03)
DX: A40.3 Sepsis due to Streptococcus pneumoniae (principal); G93.41 Metabolic encephalopathy; J10.08 Influenza due to other identified influenza virus with other specified pneumonia; J13 Pneumonia due to Streptococcus pneumoniae; R65.21 Severe sepsis with septic shock; J96.01 Acute respiratory failure with hypoxia; E87.20 Acidosis, unspecified; D61.818 Other pancytopenia; N17.9 Acute kidney failure, unspecified; F41.9 Anxiety disorder, unspecified; K21.9 Gastro-esophageal reflux disease without esophagitis; E83.51 Hypocalcemia; F32.A Depression, unspecified; F90.9 Attention-deficit hyperactivity disorder, unspecified type; R45.1 Restlessness and agitation; T38.0X5A Adverse effect of glucocorticoids and synthetic analogues, initial encounter; D70.9 Neutropenia, unspecified; Z20.822 Contact with and (suspected) exposure to COVID-19; Z79.899 Other long term (current) drug therapy
CPT/HCPCS: 36600; 70450; 71045; 71275; 80048; 80053; 81003; 81015; 82607; 82728; 82746; 82805; 82962; 83540; 83550; 83605; 83735; 84100; 84484; 85025; 85027; 85379; 85610; 85730; 87040; 87070; 87077; 87086; 87186; 87205; 87449; 87502; 87811; 87899; 93005; 93306; 94640; 94669; 96365; 96367; 96375; 97116; 97163; 97166; 97530; 99291; Q9967